=== PATIENT | female | born 1950 | race Caucasian/White ===

== ENCOUNTER 2019-11-27 15:29 | Outpatient (CLI) | payer MEDICARE, OTHER, SELFPAY ==
--- NOTE | 2019-11-27 | XR_ITS ---
WS: [id number] LUMBAR SPINE TECHNIQUE: 5 views of the lumbar spine CLINICAL INFORMATION: SCIATICA COMPARISON: None. FINDINGS: Osteoporosis. Advanced lumbar scoliosis convex left. 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 Reversal of the normal lumbar lordosis. No instability on flexion-extension. Chronic appearing anterior wedging in the lower thoracic spine. Advanced facet arthropathy lower lumb ar spine. Cholecystectomy clips. Previously described fracture involving the superior endplate at T12 involving the disc space seen on the [address] CT. Anterior wedging at T12 appears stable. No instability at this level. Persistent disc d esiccation at T11-T12 with vacuum disc phenomenon. XR/XR lumbar spine min 4V [id number] IMPRESSION: 1. Lumbar scoliosis convex left with ankylosis lower thoracic and lumbar spine . 2. Advanced osteoporosis. 3. Previously described fracture T12 superior endplate with extension through the disc space appears stable. 4. Vacuum disc phenomenon T11-12. No instability.
== END 2019-11-27 15:30 | disposition home or self-care (01) ==
LOC: RADOUTREAD 15:33
PROVIDERS: Family Provider Family Medicine; PCP Family Medicine; Visit Provider Family Medicine
DX: Z76.89 Persons encountering health services in other specified circumstances (principal)

== ENCOUNTER 2019-12-10 14:36 | Outpatient (CLI) | payer MEDICARE, OTHER, SELFPAY ==
--- NOTE | 2019-12-10 14:47 | MRR_ITS ---
PROCEDURE INFORMATION: Exam: MR Lumbar Spine Without Contrast. Exam date and time: 12/10/2019 3:00 PM Age: 69 years old Clinical indication: Condition or disease; Other: Sciatica TECHNIQUE: Imaging protocol: Multiplanar magnetic resonance images of the lumbar spine without intravenous contrast. COMPARISON: CR XR lumbar spine min 4V [id number] 11/27/2019 10:20 AM FINDINGS: Vertebrae: Partial sacralization of the right portion of L5 with unilateral right-sided articulation which can be a source of chronic low back pain. Levoscoliosis. Spinal cord: The conus medullaris terminates at the level of L1. T12-L1: Moderate degenerative disc disease and spondylosis. L1-L2: Moderate to severe degenerative disc disease and spondylosis. L2-L3: Moderate to severe degenerative disc disease and spondylosis. Moderate to severe right L2-L3 facet arthropathy. Moderate to severe L2-L3 lateral recess stenosis which could compromise the traversing right L3 nerve root. L3-L4: Severe degenerative disc disease and spondylosis. [id number] right and moderate to severe left facet arthropathy. Left posterolateral osteophyte formation with left lateral recess stenosis and mild left foraminal stenosis. L4-L5: Borderline right foraminal stenosis. Moderate degenerative disc disease and spondylosis. L5-S1: Hypoplastic L5-S1 disc with some desiccation. Soft tissues: Unremarkable. MR/MR lumbar spine wo con* [id number] IMPRESSION: 1. Partial sacralization of the right portion of L5 with unilateral right-sided articulation which can be a source of chronic low back pain. 2. Levoscoliosis. 3. Multilevel degenerative changes including degenerative disc disease and/or spondylosis and/or facet degenerative changes with associated multilevel central spinal stenosis and/or lateral recess stenosis and/or foraminal stenosis as discussed above.
== END 2019-12-10 14:37 | disposition home or self-care (01) ==
LOC: RADSHAW 14:41
PROVIDERS: Family Provider Family Medicine; PCP Family Medicine; Visit Provider Family Medicine
DX: M54.30 Sciatica, unspecified side (principal); Q76.49 Other congenital malformations of spine, not associated with scoliosis; M41.86 Other forms of scoliosis, lumbar region
CPT/HCPCS: 72148

== ENCOUNTER 2020-01-21 13:46 | Outpatient (CLI) | payer MEDICARE, OTHER, SELFPAY ==
[2020-01-21 13:45] VITALS: BP 124/62; PULSE 62; RESP 16; TEMP 36.8; O2SAT 98
--- NOTE | 2020-01-21 13:56 | PC.NURSE ---
Denies fever, cough, exposure to anyone ill or known COVID 19.
[2020-01-21] MEDS: denosumab 60 mg SDV SUBCUT (14:07)
[2020-01-21 14:13] VITALS: BP 120/70; TEMP 36.7
== END 2020-01-21 13:47 | disposition home or self-care (01) ==
LOC: RHEOACUTE 13:46
PROVIDERS: Family Provider Family Medicine; PCP Family Medicine; Visit Provider Internal Medicine Rheumatology
DX: M81.0 Age-related osteoporosis without current pathological fracture (principal)
CPT/HCPCS: 96372; J0897

== ENCOUNTER 2020-02-11 07:56 | Outpatient (CLI) | payer MEDICARE, OTHER, SELFPAY ==
[2020-02-11 08:15] VITALS: BMI 39.2
--- NOTE | 2020-02-11 08:24 | ECG_ITS ---
NAME OF STUDY: LEXISCAN SESTAMIBI STRESS TEST INDICATION: Chest Pain PROCEDURE: At the baseline, the blood pressure was 185/97 mmHg with a heart rate of 64 bpm. The electrocardiogram showed atrial fibrillation, normal axis with no significant ST-T wave changes. The Lexiscan was infused over a period of 20 seconds. A total of 0.4 milligrams of Lexiscan was infused. The stress phase was continued for a total of 5 minutes. Heart rate at the end of the stress phase was 68 bpm, oxygen saturation with a blood pressure 160/84 mmHg. The EKG at the peak infusion revealed no significant ST-T wave changes. Sestamibi was injected 20 seconds after the Lexiscan infusion. Blood pressure at the end of the recovery phase was 175/94 mmHg with a heart rate of 72 beats per minute. CONCLUSION: 1. No significant EKG changes with the LexiScan infusion. 2. No LexiScan induced chest pain or cardiac arrhythmia. 3. Normal blood pressure and heart rate response. 4. Sestamibi/sestamibi perfusion scan pending; see separate report. Electronically Signed On 02-13-2020 13:31:52 CDT by Gena West M.D. [email or web address]
--- NOTE | 2020-02-11 08:24 | NMCV_ITS ---
NM devon perf SPECT r/s* [id number] Jennifer Sahu Age: 69 Gender: F : 1950 Exam Date: 02/11/2020 09:28 Ordering Phys: Gena West MD ([email or web address]) Technologist: JOHN Teresa Exam Location: [facility] Indications: CHEST PAIN STRESS TEST Please [facility] IMAGE PROTOCOL Rest/Stress 1 Lexiscan Day Radiopharmaceutical Dose (mCi) Administration Site Administered by Rest: Tc-99m 10.9 IV JOHN Yeh Sestamibi Stress:Tc-99m 32.5 IV JOHN Teresa Sestamideonna Rest: 11-Feb-2020 60 Discovery 630 Stress: 11-Feb-2020 30 Discovery 630 0.4mg Lexiscan. Supine position only as patient was unable to lay prone. SPECT RESULTS Technical Quality: Excellent Raw Data Analysis: Normal Image Corrections: No attenuation or motion correction applied Summed Stress Score: 12 Summed Rest Score: 3 Summed Difference Score: 9 PERFUSION FINDINGS Medium sized perfusion abnormality of moderate severity of mid to apical inferior and mid to apical inferolateral bird on stress images. FUNCTIONAL RESULTS (calculated via Gated SPECT) Stress Image LV EF (%): 73 Stress EDV (mL):81 TID: 1.11 Stress ESV (mL):22 FUNCTIONAL FINDINGS: The left ventricle is normal in size. Transient Ischemia Dilatation of 1.1. There is normal left ventricular systolic function. The left ventricular ejection fraction is normal with a value of 73%. There is normal left ventricular wall thickening. Normal end diastolic and end systolic volumes. IMPRESSIONS 1. Medium sized reversible perfusion abnormality of moderate severity of mid to apical inferior and mid to apical inferolateral bird. This is suggestive of moderate area of ischemia in right coronary artery and circumflex artery territory. 2. Overall left ventricular systolic function is normal without regional wall motion abnormalities. 3. The left ventricular ejection fraction is normal with a value of 73%. 4. No prior similar studies to compare. Gena West MD (Electronically Signed) Final Date: 11 February 2020 15:24 S
--- NOTE | 2020-02-11 10:08 | SUR.PREOP ---
Patient reports no pain or discomfort prior to the start of the procedure.
[2020-02-11] MEDS: regadenoson 0.4 Mg/5 ml Syringe IVP (10:10)
[2020-02-11 10:19] VITALS: BP 184/101; PULSE 69
== END 2020-02-11 07:57 | disposition home or self-care (01) ==
LOC: RAD 08:00
PROVIDERS: Family Provider Family Medicine; PCP Family Medicine; Visit Provider Internal Medicine Cardiovascular Disease
DX: R07.9 Chest pain, unspecified (principal)
CPT/HCPCS: 78452; 93017; A9500; J2785

== ENCOUNTER 2020-03-15 20:31 | Inpatient (IN) | payer MEDICARE, OTHER, SELFPAY ==
[2020-03-15 20:33] VITALS: BP 183/99; PULSE 55; RESP 18; TEMP 36.3; O2SAT 99; BMI 39.2
--- NOTE | 2020-03-15 20:45 | XR_ITS ---
WS: [id number] PORTABLE CHEST HISTORY: vomiting COMPARISON: 05/06/2019 Radiograph is lordotic and the patient is rotated. Hyperinflated lungs. Linear scar in the central RIGHT lung. Slight elevation of the RIGHT hemidiaphra gm. No pleural effusion or pneumothorax. Cardiac size: Normal. Mediastinum/Aorta: Mild atherosclerosis aorta. Mediastinum is enlarged and distorted by the aortic ar ch. No osseous abnormality seen. XR/XR chest 1V portable [id number] IMPRESSION: Enlarged mediastinum secondary to rotation of the patient and positioning. No p neumonia.
[2020-03-15 20:46] VITALS: BP 139/75; PULSE 59; RESP 20; O2SAT 95
--- NOTE | 2020-03-15 20:46 | CTR_ITS ---
PROCEDURE INFORMATION: Exam: CT Head Without Contrast Exam date and time: 03/15/2020 9:20 PM Age: 69 years old Clinical indication: Patient HX: Nausea w cp; Additional info: Symptoms of acute stroke TECHNIQUE: Imaging protocol: Computed tomography of the head without contrast. Axial, coronal and sagittal reformatted images were created and reviewed. Radiation optimization: All CT scans at this facility use at least one of these dose optimization techniques: automated exposure control; mA and/or kV adjustment per patient size (includes targeted exams where dose is matched to clinical indication); or iterative reconstruction. COMPARISON: CT head wo con* [id number] 02/05/2018 4:27 PM RADIATION DOSE METRICS: Total DLP: 801.24 mGy-cm FINDINGS: Limitations: Somewhat limited examination due to streak/motion artifact. Brain: Patchy areas of hypoattenuation in the periventricular and subcortical white matter, consistent with chronic small vessel ischemic disease. No CT evidence of acute intracranial hemorrhage or acute territorial infarction. No significant mass effect or midline shift. Basal cisterns patent. Ventricles: Prominence of the cortical sulci, cisterns and ventricular system, consistent with cerebral and cerebellar volume loss. Bones/joints: No acute osseous abnormality. Sinuses: See Vasculature finding. Mastoid air cells: Minimal opacification and sclerosis of the mastoid air cells. Soft tissues: Grossly unremarkable. Vasculature: Calcific atherosclerotic disease in the cavernous internal carotid arteries. Minimal ethmoid mucosal thickening. Near complete opacification of the left maxillary sinus. CT/CT head wo con* [id number] IMPRESSION: 1. Somewhat limited examination without CT evidence of acute intracranial pathology. 2. Additional findings, as above. Radiation Dose CTDIVOL = (mGy): DLP = 801.24 (mGy-cm)
--- NOTE | 2020-03-15 20:46 | ECG_ITS ---
Measurements Intervals [place] Rate: 59 P: 47 IA: 194 QRS: 22 QRSD: 98 T: 30 QT: 440 QTc: 438 SINUS BRADYCARDIA No previous ECG available for comparison Electronically Signed On 03-16-2020 10:31:20 CDT by Ignacio Llanos MD [email or web address]
[2020-03-15 20:55] LABS: Basophils # 0.1 10^3/uL (0.0-0.1); Eosinophils # 1.2 10^3/uL (0.0-0.8); Eosinophils % 11.9 %; Hematocrit 35.6 % (37.0-47.0); Lymphocytes # 4.2 10^3/uL (0.8-4.8); Lymphocytes % 40.5 %; Mean Corpuscular HGB Conc 30.9 g/dL (30.0-36.0); Mean Corpuscular Hemoglobin 28.5 pg (28.0-34.0); Mean Corpuscular Volume 92.2 fL (81-99); Monocytes # 1.3 10^3/uL (0.2-0.9); Monocytes % 12.2 %; Neutrophils # 3.5 10^3/uL (1.8-7.7); Neutrophils % 34.2 %; Nucleated Red Blood Cells % 0 %; Platelet Count 277 10^3/cmm (130-400); Red Blood Count 3.86 10^6/uL (4.1-5.3); Red Cell Distribution Width 16.7 % (12.1-15.1); White Blood Count 10.3 10^3/uL (4.0-10.0)
[2020-03-15 21:03] LABS: INR 0.98 (0.8-1.2)
[2020-03-15 21:04] LABS: Partial Thromboplastin Time 26.8 SECONDS (23.9-36.7)
--- NOTE | 2020-03-15 21:05 | ED_ITS ---
HPI - Nausea/Vomiting/Diarrhea General: Chief complaint: Nausea/Vomiting/Diarrhea Stated complaint: Nausea with chest pain Time Seen by Provider: 03/15/20 20:39 History of Present Illness: HPI Narrative: Patient is a 69 year old female presenting with dizziness and double vision. She reports that this started while she was sitting and trying to read. She estimates it started approximately an hour prior to my evaluation. She also described feeling numb and tingly all over her body. She did not have any focal weakness. She does have a headache that started after the other symptoms. She has never had anything like this before. No history of stroke. She became dizzy and threw up several times. She admits to having pressure in her chest and feeling like her heart was beating funny. MD elicited complaint: vomiting Associated nausea: Yes Associated symtoms: Reports change in vision (Double vision), chest pain, dizziness, headache(s) and nausea; Denies fatigue or malaise Review of Systems General: Reports: 10 or more systems reviewed and unremarkable except in HPI and below Const: Denies: fever(s), chills, fatigue or malaise Eyes: Reports: change in vision (Double vision) ENMT: Denies: odynophagia Card: Reports: chest pain and pre-syncope; Denies: swelling of feet/ankles Resp: Denies: dyspnea, productive cough or non-productive cough GI: Reports: nausea and vomiting; Denies: abdominal pain : Denies: flank pain or difficulty voiding Musc: Denies: neck pain or back pain Skin/Breast: Denies: rash Neuro: Reports: headache(s), numbness in extremities, difficulty walking (She did not attempt to get up and walk. She normally ambulates with a walker due to balance problems) and dizziness; Denies: weakness in extremities Jarrell/Lymph: Denies: easy bruising or easy bleeding PFS ED PFSH: Medical History Atrial fibrillation Chronic migraine GERD (gastroesophageal reflux disease) HTN (hypertension) Postmenopausal osteoporosis Syncope and collapse Family History Other Diabetes Hypertension Social History Smoking and tobacco status: never smoked Alcohol intake: never Physical Exam Const: COMMON NORMALS: no acute distress, patient oriented x3, no limitations and alert GENERAL APPEARANCE: cooperative and comfortable HENMT: HEAD & SCALP: normal to inspection FACE & SINUS: normal facial exam Eye: COMMON NORMALS: Equal, round and reactive pupils present, EOMs intact bilaterally and normal visual reilly by confrontation GENERAL EYE: appearance normal, both eyes and all related structures PUPIL: Yes Equal, round and reactive pupils present OTHER: Patient continues to complain of double vision however I cannot detect any abnormal extraocular movements Neck/C-Spine: COMMON NORMALS: supple, no meningeal signs and no JVD Chest: COMMONS NORMALS: normal inspection of the chest Resp: COMMON NORMALS: normal respiratory effort, No use of accessory muscles and clear to auscultation bilaterally AUSCULTATION: clear to auscultation bilaterally Cardio: COMMON NORMALS: no JVD, regular rate, regular rhythm and No murmurs present (Cardio) RATE: regular rate RHYTHM: regular rhythm GI: COMMON NORMALS: Normal to inspection, nondistended, normoactive bowel sounds present, Soft to palpation and non-tender INSPECTION: Yes normal to inspection AUSCULTATION: Yes normoactive bowel sounds PALPATION: Yes Soft to palpation Back/Pelvis: COMMON NORMALS: thoracic and lumbar spine normal to inspection Extremity: COMMON NORMALS: normal to inspection Neuro: COMMON NORMALS: patient oriented x3, moves all extremities, no focal motor deficits and no sensory deficits noted SENSORIUM/ORIENTATION: Yes alert MENINGEAL SIGNS: Yes no meningeal signs CRANIAL NERVES: Yes CN normal except as noted GAIT: Yes Unable to assess gait SENSORY EXAM: Yes Normal double simultaneous stimulation for sensation MOTOR EXAM: 5/5 motor strength present throughout Psych: COMMON NORMALS: mental status grossly normal, cooperative and normal affect Skin: COMMON NORMALS: no rashes or lesions noted and turgor normal GENERAL SKIN EXAM: no rashes or lesions noted and turgor normal Course ED course: Patient's neurologic symptoms resolved. She no longer has double v ision. CT of her head was unremarkable for any acute findings. She does have chronic ischemia changes. EKG was unremarkable. On review of her prior records she is actually scheduled to have a left heart cath due to an abnormal stress test that was done recently. Although she did not initially complain of chest pain she does admit to chest pressure and it is conceivable that her symptoms could be related to cardiac issues. I had not initially ordered troponins but I have added serial troponins and EKGs now for her work-up. Vital Signs: Vital signs: Vital Signs Temperature 97.9 F 03/16/20 07:58 Pulse Rate 67 03/16/20 07:58 Respiratory Rate 16 03/16/20 07:58 Blood Pressure 133/67 03/16/20 07:58 Pulse Oximetry 93 03/16/20 07:58 MDM - Nausea/Vomiting/Diarrhea Lab Data: Labs: Lab Results 03/15/20 03/15/20 03/15/20 Range/Units 20:11 20:11 20:11 WBC 10.3 H (4.0-10.0) 10^3/ uL RBC 3.86 L (4.1-5.3) 10^6/u L Hgb 11.0 L (11.5-15.3) g/dL Hct 35.6 L (37.0-47.0) % MCV 92.2 (81-99) fL MCH 28.5 (28.0-34.0) pg MCHC 30.9 (30.0-36.0) g/dL RDW 16.7 H (12.1-15.1) % Plt Count 277 (130-400) 10^3/c mm MPV 12.0 H (7.4-10.4) fL Neut % (Auto) 34.2 % Lymph % (Auto) 40.5 % [place] % (Auto) 12.2 % Eos % (Auto) 11.9 % Baso % (Auto) 1.0 % Neut # (Auto) 3.5 (1.8-7.7) 10^3/u L Lymph # (Auto) 4.2 (0.8-4.8) 10^3/u L [place] # (Auto) 1.3 H (0.2-0.9) 10^3/u L Eos # (Auto) 1.2 H (0.0-0.8) 10^3/u L Baso # (Auto) 0.1 (0.0-0.1) 10^3/u L Nucleated RBC % (a uto) 0 % Nucleated RBCs # 0.0 /100WBC PT 13.30 (10.5-13.3) SECO NDS INR 0.98 (0.8-1.2) APTT 26.8 (23.9-36.7) SECO NDS Sodium 140 (136-145) mmol/L Potassium 4.9 (3.5-5.1) mmol/L Chloride 105 (98-107) mmol/L Carbon Dioxide 25 (22-29) mmol/L Anion Gap 14.9 (5-19) BUN 26 H (8-23) mg/dL Creatinine 1.1 H (0.5-0.9) mg/dL Glucose 111 (65-115) mg/dL POC Glucose (70-110) mg/dL Estimat Average Gl ucose Hemoglobin A1c (4.0-6.0) % Calculated Osmolal ity 288 (285-295) mOsm/k g Calcium 9.3 (8.5-10.5) mg/dL Total Bilirubin 0.2 (0.15-1.2) mg/dL AST 17 (0-32) U/L ALT 13 (0-33) U/L Alkaline Phosphata se 99 (35-105) IU/L Troponin T Baselin e (0-10) ng/mL NT-Pro-B Natriuret Pep (0-125) pg/mL Total Protein 6.8 (6.6-8.7) g/dL Albumin 3.5 (3.5-5.2) g/dL Globulin 3.3 (1.3-4.6) g/dL Triglycerides (0-150) mg/dL Cholesterol (0-200) mg/dL LDL Cholesterol, C alc (50-129) mg/dL HDL Cholesterol (60-100) mg/dL LDL/HDL Ratio (0.00-3.22) RATI O Cholesterol/HDL Ra umair (0.0-4.40) mg/dL TSH (0.27-4.20) uIU/ mL 03/15/20 03/15/20 03/15/20 Range/Units 20:11 20:11 21:02 WBC (4.0-10.0) 10^3/ uL RBC (4.1-5.3) 10^6/u L Hgb (11.5-15.3) g/dL Hct (37.0-47.0) % MCV (81-99) fL MCH (28.0-34.0) pg MCHC (30.0-36.0) g/dL RDW (12.1-15.1) % Plt Count (130-400) 10^3/c mm MPV (7.4-10.4) fL Neut % (Auto) % Lymph % (Auto) % [place] % (Auto) % Eos % (Auto) % Baso % (Auto) % Neut # (Auto) (1.8-7.7) 10^3/u L Lymph # (Auto) (0.8-4.8) 10^3/u L [place] # (Auto) (0.2-0.9) 10^3/u L Eos # (Auto) (0.0-0.8) 10^3/u L Baso # (Auto) (0.0-0.1) 10^3/u L Nucleated RBC % (a uto) % Nucleated RBCs # /100WBC PT (10.5-13.3) SECO NDS INR (0.8-1.2) APTT (23.9-36.7) SECO NDS Sodium (136-145) mmol/L Potassium (3.5-5.1) mmol/L Chloride (98-107) mmol/L Carbon Dioxide (22-29) mmol/L Anion Gap (5-19) BUN (8-23) mg/dL Creatinine (0.5-0.9) mg/dL Glucose (65-115) mg/dL POC Glucose 106 (70-110) mg/dL Estimat Average Gl ucose 108 Hemoglobin A1c 5.4 (4.0-6.0) % Calculated Osmolal ity (285-295) mOsm/k g Calcium (8.5-10.5) mg/dL Total Bilirubin (0.15-1.2) mg/dL AST (0-32) U/L ALT (0-33) U/L Alkaline Phosphata se (35-105) IU/L Troponin T Baselin e (0-10) ng/mL NT-Pro-B Natriuret Pep 943 H (0-125) pg/mL Total Protein (6.6-8.7) g/dL Albumin (3.5-5.2) g/dL Globulin (1.3-4.6) g/dL Triglycerides 124 (0-150) mg/dL Cholesterol 132 (0-200) mg/dL LDL Cholesterol, C alc 65 (50-129) mg/dL HDL Cholesterol 42 L (60-100) mg/dL LDL/HDL Ratio 1.55 (0.00-3.22) RATI O Cholesterol/HDL Ra umair 3.14 (0.0-4.40) mg/dL TSH 3.76 (0.27-4.20) uIU/ mL 03/15/20 Range/Units 22:40 WBC (4.0-10.0) 10^3/ uL RBC (4.1-5.3) 10^6/u L Hgb (11.5-15.3) g/dL Hct (37.0-47.0) % MCV (81-99) fL MCH (28.0-34.0) pg MCHC (30.0-36.0) g/dL RDW (12.1-15.1) % Plt Count (130-400) 10^3/c mm MPV (7.4-10.4) fL Neut % (Auto) % Lymph % (Auto) % [place] % (Auto) % Eos % (Auto) % Baso % (Auto) % Neut # (Auto) (1.8-7.7) 10^3/u L Lymph # (Auto) (0.8-4.8) 10^3/u L [place] # (Auto) (0.2-0.9) 10^3/u L Eos # (Auto) (0.0-0.8) 10^3/u L Baso # (Auto) (0.0-0.1) 10^3/u L Nucleated RBC % (a uto) % Nucleated RBCs # /100WBC PT (10.5-13.3) SECO NDS INR (0.8-1.2) APTT (23.9-36.7) SECO NDS Sodium (136-145) mmol/L Potassium (3.5-5.1) mmol/L Chloride (98-107) mmol/L Carbon Dioxide (22-29) mmol/L Anion Gap (5-19) BUN (8-23) mg/dL Creatinine (0.5-0.9) mg/dL Glucose (65-115) mg/dL POC Glucose (70-110) mg/dL Estimat Average Gl ucose Hemoglobin A1c (4.0-6.0) % Calculated Osmolal ity (285-295) mOsm/k g Calcium (8.5-10.5) mg/dL Total Bilirubin (0.15-1.2) mg/dL AST (0-32) U/L ALT (0-33) U/L Alkaline Phosphata se (35-105) IU/L Troponin T Baselin e 11 H (0-10) ng/mL NT-Pro-B Natriuret Pep (0-125) pg/mL Total Protein (6.6-8.7) g/dL Albumin (3.5-5.2) g/dL Globulin (1.3-4.6) g/dL Triglycerides (0-150) mg/dL Cholesterol (0-200) mg/dL LDL Cholesterol, C alc (50-129) mg/dL HDL Cholesterol (60-100) mg/dL LDL/HDL Ratio (0.00-3.22) RATI O Cholesterol/HDL Ra umair (0.0-4.40) mg/dL TSH (0.27-4.20) uIU/ mL Discharge Plan Discharge Patient Disposition: Placed in Observation Admit Provider: Indu Negro Clinical Impression: Near syncope, Blurred vision Condition: Stable Referrals: Raul Schaeffer MD [Primary Care Provider] - Discharge Date/Time: 03/16/20 00:05 Coding Level of Care Code ED 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
[2020-03-15 21:09] LABS: Alanine Aminotransferase 13 U/L (0-33); Albumin Level 3.5 g/dL (3.5-5.2); Alkaline Phosphatase 99 IU/L (35-105); Anion Gap 14.9 (5-19); Aspartate Amino Transferase 17 U/L (0-32); Blood Urea Nitrogen 26 mg/dL (8-23); Calcium 9.3 mg/dL (8.5-10.5); Carbon Dioxide 25 mmol/L (22-29); Chloride 105 mmol/L (98-107); Globulin 3.3 g/dL (1.3-4.6); Glucose 111 mg/dL (65-115); Osmolality Calculated 288 mOsm/kg (285-295); Potassium 4.9 mmol/L (3.5-5.1); Sodium 140 mmol/L (136-145); Total Bilirubin 0.2 mg/dL (0.15-1.2); Total Protein 6.8 g/dL (6.6-8.7)
[2020-03-15 21:13] LABS: Glucose Point of Care 106 mg/dL (70-110)
[2020-03-15 22:25] VITALS: BP 147/75; PULSE 60; RESP 16; O2SAT 98
--- NOTE | 2020-03-15 22:38 | ECG_ITS ---
Measurements Intervals [place] Rate: 70 P: 62 MN: 183 QRS: 48 QRSD: 94 T: 34 QT: 399 QTc: 431 SINUS RHYTHM Normal EKG No previous ECG available for comparison Electronically Signed On 03-16-2020 10:30:23 CDT by Ignacio Llanos MD [email or web address]
[2020-03-15 23:10] LABS: Troponin(5th) Baseline 11 ng/mL (0-10)
[2020-03-15 23:23] VITALS: BP 124/83; PULSE 68; RESP 18; O2SAT 94
[2020-03-15 23:24] LABS: Add Urine Microscopic? NO
[2020-03-15 23:50] LABS: Bilirubin Urine Neg (NEGATIVE); Blood Urine Neg (Negative); Glucose Urine UA Norm (Normal); Ketones Urine Negative (Negative); Leukocyte Esterase Urine Negative (Negative); Nitrate Urine Negative (Negative); Protein Urine Neg (Negative); Specific Gravity, Urine 1.015 (1.005-1.030); Sulfosalicylic Acid Urine Negative (Negative); Urine Appearance Clear (CLEAR); Urine Color Yellow (Yellow); Urobilinogen Urine Norm (Negative); pH Urine 9 (5-7)
[2020-03-16] VITALS (8 sets, daily range): BP systolic 131–167; BP diastolic 63–78; PULSE 58–74; RESP 16–22; TEMP 36.4–36.8; O2SAT 87–100
--- NOTE | 2020-03-16 00:48 | PM.HP ---
Providers/Chief Complaint Admitting Physician: Indu Negro MD Primary Care Provider: Raul Schaeffer MD Chief Complaint: Nausea with chest pain History of Present Illness Jennifer Sahu is a 69 year old female with PMHx of HTN, GERD, h/o liver abscess, Atrial fibrillation, h/o migraine and tremors recently seen by cardiology on 03/04 for syncopal episodes. Since January she has been c/o episodic shortness of breath with chest heaviness, swelling in legs, palpitations and dizziness. She had a recent stress test on 02/11/20 which showed moderate area of ischemia in right coronary artery and circumflex artery territory. no RWMA, LVEF 73%. She is planned to undergo outpatient coronary angiogram with Dr. Spaulding as outpatient. She presented to Er today with c/o dizziness, double vision, headache and feeling of parasthesias. She also c/o dizziness, palpitatiosn and chest discomfort during this time. CT head did not show any acute stroke. It did however show areas of hypoattenuation in the periventricular and subcortical white matter consistent with chronic small vessel ischemic changes. Also noted was calcific atherosclerotic disease in the cavernous internal carotid arteries. Neurological symptoms subsequently resolved. EKG did not show any acute ST-T wave changes. Baseline troponin is at 11. Liver and kidney function are at baseline. Review of Systems General: Reports: 10 or more systems reviewed and unremarkable except in HPI and below Const: Denies: fever(s), chills or body aches Eyes: Denies: change in vision, blurry vision or photophobia ENMT: Denies: throat pain, enlarged tonsils, odynophagia, hoarseness or nasal congestion Card: Denies: chest pain, palpitations, irregular heart rhythm, edema, swelling of feet/ankles, lightheadedness, pre-syncope, dyspnea on exertion or orthopnea Resp: Denies: dyspnea, productive cough, non-productive cough, wheezing, stridor, pain on inspiration, change in phlegm color, hemoptysis or chest congestion GI: Denies: abdominal pain, nausea, vomiting, hematemesis, coffee ground emesis, dysphagia, heartburn, diarrhea, constipation, GI cramping, change in stool character, hematochezia or melena : Denies: flank pain, difficulty voiding, dysuria, urinary frequency, urinary urgency, urinary hesitancy or hematuria Musc: Denies: neck pain, back pain, extremity pain, joint swelling, joint warmth or deformity Neuro: Denies: headache(s), numbness in extremities, weakness in extremities, sensory changes, difficulty walking, frequent falls, dizziness, vertigo, behavioral changes, Slurred speech present or seizure-like activity Psych: Denies: anxiety, depression, suicidal ideation or homicidal ideation Endo: Denies: polyuria, polydipsia, tired all the time, cold intolerance or hot flashes Jarrell/Lymph: Denies: easy bruising or easy bleeding Medications/Allergies Home Medications Medication Instructions Recorded Confirmed Last Taken Type spironolactone 25 mg tablet 25 mg PO DAILY 12/25/19 03/16/20 03/15/20 08:00 History metoprolol succinate 25 mg 12.5 mg PO BID #30 tab 02/12/20 03/16/20 03/15/20 08:00 Rx tablet,extended release 24 hr clopidogrel 75 mg tablet 75 mg PO .COMPLEX #30 tab 03/04/20 03/16/20 Unknown Rx pantoprazole 40 mg PO DAILY 03/15/20 03/16/20 03/15/20 08:00 History tizanidine 2 mg PO BID PRN 03/16/20 03/16/20 03/15/20 08:00 History tramadol 100 mg PO BID PRN 03/16/20 03/16/20 03/15/20 01:00 History aspirin 81 mg PO DAILY #30 tab 03/18/20 Unknown Rx atorvastatin 40 mg PO BEDTIME #30 tab 03/18/20 Unknown Rx Allergies Allergy/AdvReac Type Severity Reaction Status Date / Time Penicillins Allergy ALGY-Rash Verified 02/11/20 08:24 PFSH Acute PFSH: Medical History Atrial fibrillation Chronic migraine GERD (gastroesophageal reflux disease) HTN (hypertension) Postmenopausal osteoporosis Syncope and collapse Family History Other Diabetes Hypertension Social History Smoking and tobacco status: never smoked Alcohol intake: never Vitals/I&O/Wt Last Vital Signs Temp 97.4 F L 03/15/20 20:33 Pulse 59 L 03/16/20 00:23 Resp 20 H 03/16/20 00:23 BP 137/68 03/16/20 00:23 Pulse Ox 97 03/16/20 00:23 Weight last 48 hrs Weight 87.997 kg Physical Exam Narrative: EXAM NARRATIVE: GEN: Awake, alert and oriented, no acute distress CVS: S1S2 N RS: CTA B/L Abd: Soft, nt/nd , bs+ 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 Admit to [facility] # Pre syncope/syncope symptoms already undergoing evaluation as an outpatient. # Symptoms yesterday with double vision and dizziness initially raised concern for CVA vs TIA. CT head with chronic microvascular changes. Patient has a history of migraines and possible that she could have been experiencing a migraine headache at the time. Carotid artery atherosclerosis was noted on CT head, will order carotid artery doppler additionally for presyncope w/up Close neuro checks Continuous telemetry monitoring # C/o chest discomfort+ during the episode, which is now resolved. Likely unstable angina. Troponins without significant delta. EKG without acute ST-T changes Patient was scheduled for coronary angiogram as outpatient given abnormal stress test Continue ASA/Plavix/metoprolol/sprinolactone Last echo 05/2019 There is mild global hypokinesis with ejection fraction near 50%. No obvious regional wall motion disturbances. 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
--- NOTE | 2020-03-16 01:14 | USCV_ITS ---
Jennifer Sahu Age: 69 Gender: F : 1950 Exam Date: 03/16/2020 06:44 Ordering Phys: Indu Negro MD Technologist: Duane Rooney Exam Location: [facility] [place] Indication: Syncope Risk Factors: Unknown Previous Vascular Surgery: Unknown Right Brachial BP: / Left Brachial BP: / Right Left Velocity (cm/s) Spectral Plaque Velocity (cm/s) Spectral Plaque Syst/Diast Broadening Syst/Diast Broadening 79.40/ 19.80 Prox CCA 49.70 / 14.80 70.60/ 22.10 Mid CCA 63.70 / 19.40 59.00/ 17.10 Distal CCA 80.00 / 17.10 Tony 84.60/ 23.90 Prox ICA 66.40 / 18.40 Tony 114.40/34.20 Mid ICA 89.30 / 26.50 84.90/ 24.30 Distal ICA 101.40/ 33.10 72.60 ECA 45.40 1.62 ICA/CCA 1.59 Antegrade Vertebral Antegrade 82.70/ 18.70 cm/s 61.70/ 23.20 cm/s Tri Subclavian Tri 69.20 59.50 FINDINGS Comparison: none available. No significant elevation of systolic or diastolic velocities. Minimal bilateral, intimal thickening with plaque, no elevation of velocity. Bilateral anategrade vertebral arteries. CONCLUSIONS Bilateral ICA stenosis less than 50%. Mild bilateral atherosclerosis. Dr. Vera Torres DO (Electronically Signed) Final Date: 16 Mar 2020 09:53 S
[2020-03-16 01:15] LABS: Troponin 5 2HR 11.72 ng/mL (0-10); Troponin 5 2HR Delta 0.72 ABS# (0-10)
[2020-03-16] MEDS: TRAMadol 50 mg Tablet 100 MG PO ×2 (02:29→21:32)
[2020-03-16 02:39] LABS: Estmated Average Glucose 108; Hemoglobin A1C 5.4 % (4.0-6.0)
[2020-03-16 04:17] LABS: Chol HDL Ratio 3.14 mg/dL (0.0-4.40); Cholesterol 132 mg/dL (0-200); HDL Cholesterol 42 mg/dL (60-100); LDL Cholesterol Calculated 65 mg/dL (50-129); LDL HDL Ratio 1.55 RATIO (0.00-3.22); NT Pro B Type Natriuretic Pept 943 pg/mL (0-125); Thyroid Stimulating Hormone 3.76 uIU/mL (0.27-4.20); Triglycerides 124 mg/dL (0-150)
[2020-03-16 05:45] LABS: Troponin 5 6HR 9.86 ng/mL (0-10)
[2020-03-16 05:46] LABS: Troponin 5 6HR Delta -1.14 ng/L (0-12)
[2020-03-16 05:47] LABS: Alanine Aminotransferase 11 U/L (0-33); Albumin Level 3.2 g/dL (3.5-5.2); Alkaline Phosphatase 79 IU/L (35-105); Anion Gap 13.3 (5-19); Aspartate Amino Transferase 18 U/L (0-32); Blood Urea Nitrogen 19 mg/dL (8-23); Calcium 8.5 mg/dL (8.5-10.5); Carbon Dioxide 24 mmol/L (22-29); Chloride 105 mmol/L (98-107); Globulin 2.8 g/dL (1.3-4.6); Glucose 83 mg/dL (65-115); Magnesium 2.9 mg/dL (1.7-2.3); Osmolality Calculated 280 mOsm/kg (285-295); Potassium 5.3 mmol/L (3.5-5.1); Sodium 137 mmol/L (136-145); Total Bilirubin 0.4 mg/dL (0.15-1.2)
[2020-03-16] MEDS: metoprolol succinate ER (24 HR) 25 mg Tablet 12.5 MG PO ×2 (09:05→17:01)
[2020-03-16] MEDS: spironolactone 25 mg Tablet PO (09:06)
[2020-03-16] MEDS: pantoprazole DR 40 mg Tablet PO (09:06)
--- NOTE | 2020-03-16 09:06 | PC.CHAP ---
Pastoral Care Encounter/Spiritual Assessment Type of Contact [] Declined teaching pastor visit [] Patient/Family/Request visit [] Outpatient visit [] Follow-up visit [] Physician referral [] Code/Alert [x] Routine visit [] Staff referral [] Actively dying [] Patient sleeping [] Family support [] [] Out of room [] Palliative care [] [] Receiving care in room [] Pre-surgical visit [] Trauma [] Long length of stay [] ICU visit [] Other: Relational/Emotional Strength [] Patient feels connected with others/family/visitors/staff [] Distress [] Loneliness/isolation [] Abandonment Spirituality of Patient [] Person of [place] [] Attends Mosque of their [place] [x] Believes in Prayer [] Reads Bible or Bahai materials [] There are Spiritual issues to be addressed Information Security Manager Interventions [x] Prayer [] Active listening [] Non-anxious presence [] Spiritual/emotional support [] Crisis/trauma care [] Spiritual counseling [] Bereavement support [] Provided bereavement packet [] Provided Bible/devotional materials [] Provided toy/stuffed animal, coloring book to patient or family member [] Provided Communion [] Anointing/[place] [] Salvation [x] Completed spiritual assessment [] Other: Impact on Illness or Injury [] Angry [] Fearful [] Anxious [] Often cries [] Exhaustion [] Unable to work [] Unable to attend buddhist [] Unable to walk/stand [] Unable to read [] Unable to drive [] Unable to eat/drink [] Unable to sleep [] Unable to be with family [] Patient intubated [] Other: Summary Patient dealing with pain. Time spent with patient 10 min
[2020-03-16] MEDS: acetaminophen 325 mg Tablet 650 MG PO (09:08)
--- NOTE | 2020-03-16 11:02 | P.CONIM_ITS ---
Providers/Reason For Consult Consulting Physican/Specialty*: Viet, Cardiology Reason for Consult*: Chest pain, abnormal stress test, unstable angina. Attending Physician: Rylan Echevarria MD Primary Care Provider: Raul Schaeffer MD History of Present Illness History of Present Illness Jennifer Sahu is a 69 year old female with PMHx of HTN, GERD, h/o liver abscess, Atrial fibrillation, h/o migraine and tremors recently seen by cardiology on 03/04 for syncopal episodes. Since January she has been c/o episodic shortness of breath with chest heaviness, swelling in legs, palpitations and dizziness. She had a recent stress test on 02/11/20 which showed moderate area of ischemia in right coronary artery and circumflex artery territory. no RWMA, LVEF 73%. She is planned to undergo outpatient coronary angiogram with Dr. Spaulding as outpatient. She presented to Er today with c/o dizziness, double vision, headache and feeling of parasthesias. She also c/o dizziness, palpitations and chest discomfort during this time. CT head did not show any acute stroke. It did however show areas of hypoattenuation in the periventricular and subcortical white matter consistent with chronic small vessel ischemic changes. Also noted was calcific atherosclerotic disease in the cavernous internal carotid arteries. Neurological symptoms subsequently resolved. EKG did not show any acute ST-T wave changes. Baseline troponin is at 11. Liver and kidney function are at baseline. Review of Systems General: Reports: 10 or more systems reviewed and unremarkable except in HPI and below Card: Reports: chest pain, palpitations and pre-syncope Resp: Reports: dyspnea GI: Reports: nausea Neuro: Reports: headache(s) and dizziness Psych: Reports: anxiety Meds/Allergies Home Medications and Allergies Home Medications Medication Instructions Recorded Confirmed Last Taken Type spironolactone 25 mg tablet 25 mg PO DAILY 12/25/19 03/16/20 03/15/20 08:00 History metoprolol succinate 25 mg 12.5 mg PO BID #30 tab 02/12/20 03/16/20 03/15/20 08:00 Rx tablet,extended release 24 hr clopidogrel 75 mg tablet 75 mg PO .COMPLEX #30 tab 03/04/20 03/16/20 Unknown Rx pantoprazole 40 mg PO DAILY 03/15/20 03/16/20 03/15/20 08:00 History tizanidine 2 mg PO BID PRN 03/16/20 03/16/20 03/15/20 08:00 History tramadol 100 mg PO BID PRN 03/16/20 03/16/20 03/15/20 01:00 History Allergies Allergy/AdvReac Type Severity Reaction Status Date / Time Penicillins Allergy ALGY-Rash Verified 02/11/20 08:24 Current Medications Current Medications Generic Name Dose Route Start Last Admin Trade Name Oswaldo PRN Reason Stop Dose Admin Acetaminophen 650 mg 03/16/20 01:09 03/16/20 09:08 Tylenol PO 650 mg Q6H PRN Administration Mild/Mod Pain Or Temp >/= 101 Metoprolol Succinate 12.5 mg 03/16/20 09:00 03/16/20 09:05 Toprol Xl PO 12.5 mg BID TAWANNA Administration Pantoprazole Sodium 40 mg 03/16/20 09:00 03/16/20 09:06 Protonix PO 40 mg DAILY TAWANNA Administration Spironolactone 25 mg 03/16/20 09:00 03/16/20 09:06 Aldactone PO 25 mg DAILY TAWANNA Administration Tramadol HCl 100 mg 03/16/20 01:11 03/16/20 02:29 Ultram PO 100 mg BID PRN Administration Pain PFSH Acute PFSH: Medical History Atrial fibrillation Chronic migraine GERD (gastroesophageal reflux disease) HTN (hypertension) Postmenopausal osteoporosis Syncope and collapse Family History Other Diabetes Hypertension Social History Smoking and tobacco status: never smoked Alcohol intake: never Vitals/I&O/Wt Last Vital Signs Temp 97.9 F 03/16/20 07:58 Pulse 67 03/16/20 07:58 Resp 16 03/16/20 07:58 BP 133/67 03/16/20 07:58 Pulse Ox 93 03/16/20 07:58 03/15/20 03/16/20 03/16/20 22:59 06:59 14:59 Intake Total 200 / 200 Balance 200 / 200 Weight last 48 hrs Weight 194 lb Physical Exam Const: COMMON NORMALS: no acute distress, patient oriented x3 and healthy appearing HENMT: COMMON NORMALS: normocephalic HEAD & SCALP: normocephalic Neck/C-Spine: COMMON NORMALS: no JVD Chest: COMMONS NORMALS: normal inspection of the chest and normal palpation of entire chest wall Resp: COMMON NORMALS: normal respiratory effort, clear to auscultation bilaterally and percussion normal AUSCULTATION: clear to auscultation bilaterally PERCUSSION: percussion normal Cardio: COMMON NORMALS: no JVD, regular rate, regular rhythm, S1 normal heart sound present, S2 normal heart sound present and No murmurs present (Cardio) RATE: regular rate RHYTHM: regular rhythm HEART SOUNDS: S1 normal heart sound present and S2 normal heart sound present GI: COMMON NORMALS: Normal to inspection, nondistended, normoactive bowel sounds present, Soft to palpation, non-tender and No hepatosplenomegaly present PALPATION: Yes Soft to palpation and Yes No hepatosplenomegaly present Extremity: COMMON NORMALS: normal to inspection, full ROM, capillary refill normal, no clubbing, cyanosis or edema, no calf tenderness and no pedal edema Neuro: COMMON NORMALS: patient oriented x3, CN's II-XII intact bilaterally and moves all extremities Psych: COMMON NORMALS: mental status grossly normal, Normal thought process present and cooperative THOUGHT PROCESS: Normal thought process present Skin: COMMON NORMALS: no rashes or lesions noted and no wounds GENERAL SKIN EXAM: no rashes or lesions noted Data Labs: Other Labs: Reviewed EKG x 2 Showing NSR without ischemic changes. A&P Assessment and plan (1) Chest pain: Given recurrence of chest pain and recent positive stress testing now presenting in unstable fashion would proceed with angiographic evaluation. On beta [place]. Add nitrates if symptomatic although she has headaches and near syncope and thus would not add at this time. Status: Acute Qualifiers: Chest pain type: unspecified Qualified Code(s): R07.9 - Chest pain, unspecified (2) Abnormal stress test: As above. Status: Acute (3) Near syncope: Currently no arrhythmia or significant AV block on EKG. avoid hypotension. Status: Acute (4) Syncope and collapse: As above. Status: Acute (5) Unstable angina: As above. Her presentation of resting chest discomfort in presence of recent abnormal stress testing is consistent with the diagnosis. Status: Acute Consult Attestations Medical Necessity Statement: Unstable angina. Time Spent in Patient Care: Greater than 35 minutes (>than 50% of time spent in counselling and/or direct pt care on unit) . 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
--- NOTE | 2020-03-16 11:32 | PM.PN ---
Subjective Subjective: Interval history: History and physical reviewed. Patient denies any chest discomfort currently. She does report chest discomfort yesterday upon presentation. She reports her dizziness and paresthesias have gone away. Medications: Reviewed: Yes Vitals/I&O/Wt Last Vital Signs Temp 97.9 F 03/16/20 11:26 Pulse 64 03/16/20 11:26 Resp 19 H 03/16/20 11:26 BP 160/69 03/16/20 11:26 Pulse Ox 100 03/16/20 11:26 03/15/20 03/16/20 03/16/20 22:59 06:59 14:59 Intake Total 200 / 200 Balance 200 / 200 Weight last 48 hrs Weight 87.997 kg Physical Exam Narrative: EXAM NARRATIVE: General exam is no apparent distress Cardiovascular regular rate and rhythm without murmur Lungs clear no wheezing or crackles Abdomen is soft positive bowel sounds Extremities no cyanosis clubbing or edema Data : 03/15/20 20:11 03/16/20 04:55 A&P Assessment and plan (1) Abnormal stress test: Cardiology consultation Likely will proceed with angiogram tomorrow Initiate statin Continue beta-[place] Last echocardiogram demonstrated EF of 50% Status: Acute (2) Chest pain: Angiogram, to be performed tomorrow Status: Acute Qualifiers: Chest pain type: unspecified Qualified Code(s): R07.9 - Chest pain, unspecified (3) Atrial fibrillation: Paroxysmal atrial fibrillation Initiate full anticoagulation Continue metoprolol Status: Acute (4) Blurred vision: Await carotid duplex Continue Plavix Full anticoagulation considering atrial fibrillation, paroxysmal CT head did not have any acute findings Status: Acute Additional A&P Information History of migraine headaches History of hypertension GERD. Continue Protonix Full code Lovenox for DVT prophylaxis Changed to regular admission as proceeding for angiogram tomorrow for evaluation of chest discomfort Attestations Medical Necessity Statement*: Needs continued hospitalization, for evaluation of chest discomfort and positive nuclear stress test. 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
[2020-03-16] MEDS: enoxaparin 100 mg/mL Syringe 90 MG SUBCUT (16:38)
--- NOTE | 2020-03-16 19:18 | PC.NURSE ---
Assumed care of patient. Assisted patient up to BSC with walker and standy to minimal assist. Patient tolerated well. Patient reports feeling better with improved dizziness and no n,v,d today. Instructed patient on possible LHC tomorrow and preparation involved. Patient verbalized understanding with reinforcement needed.
[2020-03-17] VITALS (33 sets, daily range): BP systolic 82–163; BP diastolic 64–96; PULSE 50–71; RESP 12–23; TEMP 36.4–36.7; O2SAT 85–100
[2020-03-17] MEDS: enoxaparin 100 mg/mL Syringe 90 MG SUBCUT (03:01)
[2020-03-17 04:36] LABS: Basophils # 0.1 10^3/uL (0.0-0.1); Basophils % 1.1 %; Eosinophils # 0.7 10^3/uL (0.0-0.8); Eosinophils % 7.7 %; Hematocrit 36.7 % (37.0-47.0); Lymphocytes # 3.5 10^3/uL (0.8-4.8); Lymphocytes % 39.1 %; Mean Corpuscular Hemoglobin 28.1 pg (28.0-34.0); Mean Corpuscular Volume 93.9 fL (81-99); Mean Platelet Volume 12.5 fL (7.4-10.4); Monocytes % 11.2 %; Neutrophils # 3.7 10^3/uL (1.8-7.7); Neutrophils % 40.6 %; Nucleated Red Blood Cells % 0 %; Platelet Count 267 10^3/cmm (130-400); Red Blood Count 3.91 10^6/uL (4.1-5.3)
[2020-03-17 04:57] LABS: Anion Gap 10.8 (5-19); Blood Urea Nitrogen 14 mg/dL (8-23); Calcium 9.2 mg/dL (8.5-10.5); Carbon Dioxide 26 mmol/L (22-29); Chloride 104 mmol/L (98-107); Glucose 74 mg/dL (65-115); Osmolality Calculated 277 mOsm/kg (285-295); Potassium 4.8 mmol/L (3.5-5.1); Sodium 136 mmol/L (136-145)
--- NOTE | 2020-03-17 08:00 | XACV_ITS ---
Exam Room: 105 Ht: 150 cm Wt: 88 kg BSA: 1.96 m2 Gender: Female : 1950 Exam Priority: Routine Procedure(s): Procedure Description: Diagnostic procedure Procedure Description: Left Heart Catheterization Diagnostic Cath Status: Urgent Diagnostic Findings Patient with fairly typical angina seen initially in the clinic. Stress testing showed distribution circumflex and right coronary artery ischemia. She has no known history of intervention. Coronary angiography reveals left coronary artery dominance. Left main is normal. The LAD contains moderate diffuse disease in the proximal portion. There is an area of heavy calcification proximally. The remainder the vessel is normal and very tortuous. The circumflex is the dominant vessel and ends distally as some very tortuous obtuse marginal branches and the posterior descending artery. In the mid to distal portion there is a 80% discrete stenosis. The right coronary artery is a small nondominant vessel and is occluded shortly after its origin. There is collateral flow to the distal right from the circumflex. PCI Status: Urgent PCI LVEF Assessed: Yes PCI Indication: New Onset Angina <= 2 months Interventional Findings The mid to distal circumflex lesion was primarily stented with a 4.0 by 12 mm stent. Decision for PCI with Surgical Consult: No PCI for Multi-vessel Disease: No Conclusions Left dominant system. 80% circumflex lesion stented primarily. Occluded nondominant distal right with collateral flow. Normal LV function. Interventional RX Recommendation: PCI w/o planned CABG Diagnostic RX Recommendation: PCI w/o planned CABG Anticoagulation: Heparin Ventriculography Ejection Fraction: 65.0 % Pressures Phase:Rest AO : 147 mmHg / 82 mmHg ( 106 mmHg ) @ 11:54:00 AM 166 mmHg / 81 mmHg ( 115 mmHg ) @ 11:55:00 AM 206 mmHg / 97 mmHg ( 129 mmHg ) @ 11:58:00 AM 159 mmHg / 70 mmHg ( 105 mmHg ) @ 12:01:00 PM 156 mmHg / 71 mmHg ( 105 mmHg ) @ 12:01:00 PM LV : 155 mmHg / 7 mmHg / @ 12:00:00 PM 166 mmHg / -15 mmHg / @ 12:01:00 PM 161 mmHg / -16 mmHg / @ 12:01:00 PM Valves Phase:DefaultPhase AV : 0.0 mmHg @ 5:17:02 PM AV Mean Gradient: 0.0 mmHg @ 5:17:02 PM 0.0 mmHg @ 5:17:02 PM Clinical Evaluation EBL: 5mL-10mL Procedural Details Procedure Consent Obtained. Current Diagnosis : Chest Pain. Pre-Procedure Time Out. Identified patient by full name and date of as verbalized by the patient/guarantor. Does the consent match the physician's order: Yes. Accurate & Complete Informed Consent: Yes. Inpatient/Outpatient History & Physical on Chart: Yes. If H&P is completed, is and addenduem needed: N/A; If yes, is the addendum complete: N/A. Visualize and Verify Site with Patient/Guarantor: N/A. Relevant Radiology Images available: N/A. The risks, benefits, and alternatives of sedation and/or procedure were discussed by physician. The patient agrees to continue. patient allergies: penicillin. patients medications: beta [place], Plavix, Lovenox. Procedure started. [facility] Clinical Fraility Score: 5: Mildly Frail. 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 CAD. Chest Pain Symptom Assessment: Atypical Angina. Cardiovascular Instability: No,. Correct patient, site and procedure confirmed by cath team. Current diagnosis: Chest Pain. PERRLA. Strong, equal hand missile inspector preflight bilaterally. Lungs clear x 5 lobes. IV Site on Arrival: 18 gauge in the left anticubital. IV Fluids: 0.9% NaCl at KVO. 0 mL infused prior to cath lab radiological technologist. Pre Procedural Pulses: bilateral dorsalis pedis was 1+. Pre Procedural Pulses: bilateral posterior tibial was 1+. Pre Procedural Pulses: right radial was 2+. Oxygen started at 2liters/min via nasal canula. bilateral groins was prepped with chloroprep then draped in the usual sterile fashion. Baseline sample Acquired. HR: 78 BPM. Physician notified. Patient's family unavailable. Equipment: 6F - Radial. Physician arrived. Physician scrubbed in. Immediate Pre-Procedure Time Out. Correct Patient: Yes; Correct Procedure: Yes; Correct Site: Yes; Correct Patient Position: Yes; Correct Supplies: Yes; Dried Flammable Prep: Yes; Blood Products Available: N/A;. Lidocaine 1% infiltrated to the right radial. Arterial access obtained. Unable to advance wire to use radial access. MD attempting to gain access in the Femoral artery. TR band applied - no hematoma. Lidocaine 1% infiltrated to the right groin. Arterial access obtained. A 6 [place] JL4 catheter in over wire. Catheter inserted over the standard wire. Multiple views taken of left coronary artery. Catheter out. Catheter removed over the standard wire. A 6 [place] JR4 catheter in over wire. Catheter inserted over the standard wire. Multiple views taken of right coronary artery. Catheter out. Catheter removed over the standard wire. A 6 [place] Angled Pig catheter in over wire. Catheter inserted over the standard wire. LV gram performed in GALVEZ @ 10 mL/second for a total of 30 mL. EDP Sample taken: LV 155/7,11; HR: 67 BPM; SpO2: 98%. EDP Sample taken: LV 166/-16,12; HR: 78 BPM; SpO2: 97%. Pullback taken: LV 161/-17,12; AO 159/70(105); Mean: 0mmHg, Peak to Peak: 0mmHg, SEP: 6sec/min; HR: 67 BPM; SpO2: 99%. Catheter out. Catheter removed over the standard wire. PCI Indication: CAD (without ischemic symptoms). 6 [place] XB 3 guide catheter was inserted over the wire. [place] guidewire was advanced through the guide catheter to lesion in the mid Circ. Inflation Number : 1 Keagan Davies GAYATHRI 4.0X12 KAYLA -Lot Number# [id number] exp 09-20-2021 was prepped and advanced across the Mid CX. The stent was deployed at 13 MEENA for 0:45 seconds. Stent balloon out over wire. Wire out. Guide catheter out. Sheath(s) sutured into position with 2-0 silk and sterile 4x4's and Op-site applied over the site. No oozing or signs and symptoms of hematoma noted. Arterial sheath flushed and connected to tranducer and pressure bag with heparinized saline. Post Procedure: Pulses reassessed and unchanged. PERRLA. Strong, equal hand missile inspector preflight bilaterally. No VTE prophylaxis required. Medication's Wasted: Verapamil = 5 mg. Medication's Wasted: Heparin = 4000 Units. Total IV fluids: 75 mL. Fluoro: 4:06. Vital chart was stopped. Contrast type used: Omnipaque 300 mgI/mL, 500 mL bottle. [id number]. PCI Indication: CAD (without ischemic symptoms). Post-op diagnosis: unstable angina. Complications: none. Estimated blood loss: 5mL-10mL. Procedure completed. Patient transferred by bed to 1st floor. Site: Right Femoral artery Sheath Size: 6 Fr Hemostasis Success: Unsuccessful Procedure Medications Start: 4:33 PM Stop: 4:33 PM Medication: Versed Amount: 1 mg Route: I.V. Start: 4:34 PM Stop: 4:34 PM Medication: Fentanyl Amount: 50 mcg Route: I.V. Start: 4:39 PM Stop: 4:39 PM Medication: Versed Amount: 1 mg Route: I.V. Start: 4:51 PM Stop: 4:51 PM Medication: Versed Amount: 1 mg Route: I.V. Start: 4:51 PM Stop: 4:51 PM Medication: Fentanyl Amount: 25 mcg Route: I.V. Start: 5:02 PM Stop: 5:02 PM Medication: Versed Amount: 1 mg Route: I.V. Start: 5:05 PM Stop: 5:05 PM Medication: Heparin Amount: 5000 units Route: I.V. Start: 5:06 PM Stop: 5:06 PM Medication: Fentanyl Amount: 25 mcg Route: I.V. Start: 5:11 PM Stop: 5:11 PM Medication: Plavix Amount: 600 mg Route: P.O. I, the attending physician, have reviewed and verified all procedure medications. Yes, all medications given per verbal order History/Risk Factors Hypertension: Yes Dyslipidemia: Yes Peripheral Arterial Disease (PAD): No Myocardial Infarction (CO): No Obesity: Yes Renal Disease: No Tobacco Use: Former Prior Interventions PCI: No CABG: No Valve Surgery: No Report Signatures Finalized by:Dr. Simon Spaulding MD on 03/17/2020 5:32:30 PM
[2020-03-17] MEDS: spironolactone 25 mg Tablet PO (09:32)
[2020-03-17] MEDS: pantoprazole DR 40 mg Tablet PO (09:32)
[2020-03-17] MEDS: metoprolol succinate ER (24 HR) 25 mg Tablet 12.5 MG PO ×2 (09:32→17:56)
[2020-03-17] MEDS: TRAMadol 50 mg Tablet 100 MG PO ×2 (09:35→19:36)
--- NOTE | 2020-03-17 10:31 | PM.PN ---
Subjective Subjective: Interval history: Jennifer denies any chest discomfort last night. Medications: Reviewed: Yes Vitals/I&O/Wt Last Vital Signs Temp 98.1 F 03/17/20 07:46 Pulse 65 03/17/20 07:46 Resp 12 03/17/20 07:46 BP 163/76 03/17/20 07:46 Pulse Ox 96 03/17/20 07:46 03/16/20 03/17/20 03/17/20 22:59 06:59 14:59 Intake Total 220 / 340 Output Total 350 / 350 350 / 700 125 / 125 Balance -130 / -10 -350 / -360 -125 / -125 Weight last 48 hrs Weight 87.997 kg Physical Exam Narrative: EXAM NARRATIVE: General exam is no apparent distress Cardiovascular regular in rhythm without murmur Lungs clear Abdomen is soft with positive bowel sounds Extremities no cyanosis clubbing or edema Data : 03/17/20 03:33 03/17/20 03:33 A&P Assessment and plan (1) Abnormal stress test: Appreciate cardiology consultation Likely angiogram today Continue statin, increased dose Continue beta-brooklyn Last echocardiogram demonstrated EF of 50% Status: Acute (2) Chest pain: Angiogram, to be performed today Status: Acute Qualifiers: Chest pain type: unspecified Qualified Code(s): R07.9 - Chest pain, unspecified (3) Atrial fibrillation: Paroxysmal atrial fibrillation Continue full anticoagulation with Lovenox. Consider Eliquis after procedure Continue metoprolol Status: Acute (4) Blurred vision: Await carotid duplex Continue Plavix Full anticoagulation considering atrial fibrillation, paroxysmal CT head did not have any acute findings Status: Acute Additional A&P Information History of migraine headaches History of hypertension GERD. Continue Protonix Full code Lovenox for DVT prophylaxis Changed to regular admission as proceeding for angiogram tomorrow for evaluation of chest discomfort Attestations Medical Necessity Statement*: Needs continued hospitalization for definitive evaluation of abnormal nuclear stress testing. Coding Level of Care Code Acute Pediatric Lpn for Rogelio Sultana Diagnoses Abnormal stress test R94.39 Chest pain R07.9 Chest pain type: unspecified Atrial fibrillation I48.91 Blurred vision H53.8
--- NOTE | 2020-03-17 11:13 | PC.CHAP ---
Pastoral Care Encounter/Spiritual Assessment Type of Contact [] Declined clinical assoc visit [] Patient/Family/Request visit [] Outpatient visit [] Follow-up visit [] Physician referral [] Code/Alert [x] Routine visit [] Staff referral [] Actively dying [] Patient sleeping [] Family support [] [] Out of room [] Palliative care [] [x] Receiving care in room [] Pre-surgical visit [] Trauma [] Long length of stay [] ICU visit [] Other: Relational/Emotional Strength [x] Patient feels connected with others/family/visitors/staff [] Distress [] Loneliness/isolation [] Abandonment Spirituality of Patient [c] Person of [place] [] Attends Yarsani of their [place] [c] Believes in Prayer [] Reads Bible or Worship materials [] There are Spiritual issues to be addressed Swine Genetics Researcher Interventions [x] Prayer [x] Active listening [x] Non-anxious presence [x] Spiritual/emotional support [] Crisis/trauma care [x] Spiritual counseling [] Bereavement support [] Provided bereavement packet [] Provided Bible/devotional materials [] Provided toy/stuffed animal, coloring book to patient or family member [] Provided Communion [] Anointing/[place] [] Salvation [x] Completed spiritual assessment [] Other: Impact on Illness or Injury [] Angry [] Fearful [] Anxious [] Often cries [] Exhaustion [x] Unable to work [] Unable to attend presybeterian [] Unable to walk/stand [] Unable to read [x] Unable to drive [] Unable to eat/drink [] Unable to sleep [] Unable to be with family [] Patient intubated [] Other: Summary CONFUSION / HX DEMENTIA; Has family, she angigram later today, waiting answer, may get to go home tomorrow, feels good good attitude Time spent with patient 10 mins
--- NOTE | 2020-03-17 13:56 | PC.NURSE ---
DR GUAMAN ORDERED TO HOLD THIS EVENINGS DOSE OF LOVENOX PRIOR TO BATCH WEIGHER.
--- NOTE | 2020-03-17 16:33 | PC.NURSE ---
PATIENT TAKEN TO LUNCHROOM SUPERVISOR VIA WHEELCHAIR WITH EARNESTINE FRANCO.
[2020-03-17] MEDS: sodium chloride 0.9% 1,000 ML 100 ML IV (17:56)
--- NOTE | 2020-03-17 19:00 | PC.NURSE ---
Assumed care of patient at this time. Patient is s/p [facility] with right groin access and attempted right radial access. Sheath is in place to right groin with pressure bag attached. No s/s of bleeding or hematoma formation observed to right groin, dressing remains c,d,i. Patient has pushed TR band away from incision site leaving incision exposed to air. No bleeding or hematoma formation observed to right wrist. TR band repositioned and air removed with still no signs of bleeding to site. Instructed patient on site care and restrictions. Patient verbalized understanding but will however need close monitoring and reinforcement of instructions. Patient had large void. Linen changed and skin cleaned. Right groin remains WNL.
[2020-03-17] MEDS: fentaNYL 50 mcg/mL INJ 2mL IVP (19:36)
--- NOTE | 2020-03-17 20:16 | PC.NURSE ---
Initiated sheath removal from right groin at 1940 per protocol. Hemostasis achieved immediately. Maintained pressure for 20min. VS monitored every 5min and reamained wnl. No s/s of bleeding or hematoma formation observed. Covered site with 2x2 and bio-occlusive dressing. Reinforced instruction regarding site care and restrictions. Patient verbalized complete understanding. TR band removed at this time from right wrist. Dressing is in place. No s/s of bleeding or hematoma to right wrist observed.
--- NOTE | 2020-03-17 23:39 | PC.NURSE ---
Fluids stopped at this time per Dr request.
[2020-03-18 04:00] VITALS: BP 106/74; PULSE 54; RESP 16; TEMP 36.6
[2020-03-18 04:47] VITALS: PULSE 50; O2SAT 98
[2020-03-18 05:42] VITALS: O2SAT 98
--- NOTE | 2020-03-18 06:42 | P.PN_ITS ---
Subjective Medications: Reviewed: Yes Medication Review Details: Jennifer underwent angiography yesterday. Mid to distal circumflex lesion was found. She has a left dominant system. The vessel was stented. Her right is a small nondominant vessel and is occluded. She has normal LV function. No problems overnight. No bleeding. I was able to pass a wire into the radial artery but was not able to pass it beyond her elbow so the procedure was completed via the right common femoral artery. Vitals/I&O/Wt Last Vital Signs Temp 97.9 F 03/18/20 04:00 Pulse 50 L 03/18/20 04:47 Resp 16 03/18/20 04:00 BP 106/74 03/18/20 04:00 Pulse Ox 98 03/18/20 05:42 03/17/20 03/17/20 03/18/20 14:59 22:59 06:59 Intake Total 120 / 120 240 / 360 571.667 / 931.667 Output Total 725 / 725 400 / 1125 400 / 1525 Balance -605 / -605 -160 / -765 171.667 / -593.333 Physical Exam Narrative: EXAM NARRATIVE: GENERAL: In general she looks and feels well HEENT: Exam within normal limits. NECK: Supple without jugular vein distention. The carotid upstroke is normal without bruits. BACK: Exam normal. LUNGS: Clear. HEART: Regular rate and rhythm. ABDOMEN: Benign without organomegaly or tenderness. EXTREMITIES: No edema. The area of the right wrist is flat, dry and without hematoma or other vascular anomaly. The right groin is flat, dry without bleeding, hematoma or other vascular anomaly. NEUROLOGIC: Exam normal. SKIN: Unremarkable. Data : 03/17/20 03:33 03/17/20 03:33 A&P Assessment and plan (1) Unstable angina: Status: Acute (2) Abnormal stress test: Status: Acute (3) Chest pain: Status: Acute Qualifiers: Chest pain type: unspecified Qualified Code(s): R07.9 - Chest pain, unspecified (4) Atrial fibrillation: Status: Acute (5) HTN (hypertension): Status: Acute (6) CAD (coronary artery disease): Status: Acute (7) Status post coronary artery stent placement: Status: Acute Additional A&P Information She may go home today. No lifting over 5 pounds for 2 days. Home medications should continue as is with the addition of a statin. She should also be placed on aspirin 81 mg daily. Follow-up in 7 to 10 days with our nurse practitioner for right groin check, right radial artery check and chemistry panel. Attestations Medical Necessity Statement*: Not applicable Coding Level of Care Code Acute [facility] [facility] Gunsmith for g Fwd Diagnoses Unstable angina I20.0 Abnormal stress test R94.39 Chest pain R07.9 Chest pain type: unspecified Atrial fibrillation I48.91 HTN (hypertension) I10 CAD (coronary artery disease) I25.10 Status post coronary artery stent placement Z95.5
[2020-03-18 07:22] VITALS: BP 140/84; PULSE 66; RESP 14; TEMP 36.5; O2SAT 96
[2020-03-18] MEDS: spironolactone 25 mg Tablet PO (08:38)
[2020-03-18] MEDS: aspirin 81 mg EC Tablet PO (08:38)
[2020-03-18] MEDS: metoprolol succinate ER (24 HR) 25 mg Tablet 12.5 MG PO (08:38)
[2020-03-18] MEDS: pantoprazole DR 40 mg Tablet PO (08:38)
--- NOTE | 2020-03-18 09:28 | PM.DCS ---
Discharge Providers Date of Admission: 03/16/20 11:40 Date of Discharge: March 18, 2020 Attending Provider at Admission: Indu Negro MD Attending Provider at Discharge: Rylan Echevarria MD Primary Care Provider: Raul Schaeffer MD Diagnoses at Discharge Discharge Diagnosis (1) Unstable angina: Status: Acute (2) Abnormal stress test: Status: Acute (3) Chest pain: Status: Acute Qualifiers: Chest pain type: unspecified Qualified Code(s): R07.9 - Chest pain, unspecified (4) Atrial fibrillation: Status: Acute (5) HTN (hypertension): Status: Acute (6) CAD (coronary artery disease): Status: Acute (7) Status post coronary artery stent placement: Status: Acute Reason for Visit Reason for Visit: Reason For Visit: Nausea with chest pain Hospital Course Hospital Course: Jennifer presented with recurrent chest discomfort. She had had a previously abnormal nuclear stress test and it had been arranged to have an outpatient angiogram. Secondary to the recurrent pain, abnormal stress test she was admitted to the hospital and consultation with cardiology occurred. Troponin was not significantly elevated. She underwent angiogram on March 17 demonstrating a circumflex lesion which was stented using a drug-eluting stent. LAD had moderate diffuse disease, right coronary occluded. She tolerated the procedure without difficulty and was able to be discharged March 18. At that time she had had no chest discomfort, right radial artery and right groin site was without significant hematoma. She had excellent pulses. She was able to ambulate around the room. 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 MANAGER request for service Routin e Exams 03/17/20 08:00 Completed XR chest 1V [place] ble [id number] Stat Exams 03/15/20 20:45 Completed CV carotid duplex BI* [id number] Routine Ultrasound 03/16/20 01:14 Completed Vitals: Last Vital Signs Temp 97.7 F 03/18/20 07:22 Pulse 66 03/18/20 07:22 Resp 14 03/18/20 07:22 BP 140/84 03/18/20 07:22 Pulse Ox 96 03/18/20 07:22 Discharge Plan Discharge Patient Disposition: Home, Self-Care Condition: Stable Prescriptions: New aspirin 81 mg Tablet,Delayed Release (Dr/Ec) 81 mg PO DAILY Qty: 30 RF: 0 atorvastatin 40 mg Tablet 40 mg PO BEDTIME Qty: 30 RF: 0 Continued spironolactone 25 mg tablet 25 mg PO DAILY RF: 0 clopidogrel [Plavix] 75 mg tablet 75 mg PO .COMPLEX Qty: 30 RF: 0 metoprolol succinate 25 mg tablet extended release 24 hr 12.5 mg PO BID Qty: 30 RF: 3 pantoprazole 40 mg Tablet,Delayed Release (Dr/Ec) 40 mg PO DAILY RF: 0 tizanidine 2 mg Tablet 2 mg PO BID PRN (Reason: Muscle Spasm) RF: 0 tramadol 50 mg Tablet 100 mg PO BID PRN (Reason: Pain) RF: 0 Discharge Orders: Discharge Order (Routine); Ordered 03/18/20 Ordered By: Rylan Echevarria Referrals: Simon Spaulding MD [Physician] - 7-10 days (Follow-up with cardiology nurse practitioner 7 to 10 days for right groin check, right radial artery check, BMP) Raul cShaeffer MD [Primary Care Provider] - 7-10 days Discharge Diet: Cardiac Discharge Activity: Increase activity as tolerated Patient Instructions: Left Heart Catheterization (DC), How to Stop Smoking (DC), Cigarette Smoking and Your Health (GEN), Post Angiogram Home Care Instructions Activity Restrictions/Additional Instructions: Lifting restrictions per cardiology, no lifting over 5 pounds for 2 days Take all medicine as prescribed Discharge Attestations Time Spent in Discharge Care*: greater than 30 min Quality Metrics Clinical Quality Measures During this hospital stay, did patient experience: None Coding Level of Care Code Acute Baker Second for Riang Fwd Diagnoses Unstable angina I20.0 Abnormal stress test R94.39 Chest pain R07.9 Chest pain type: unspecified Atrial fibrillation I48.91 HTN (hypertension) I10 CAD (coronary artery disease) I25.10 Status post coronary artery stent placement Z95.5
[2020-03-18 09:39] VITALS: BP 140/84; PULSE 66; RESP 14; TEMP 36.5; O2SAT 96
== END 2020-03-18 10:43 | disposition home or self-care (01) | DRG 247 ==
LOC: ER 22:42 → CSU 03-16 07:03
PROVIDERS: Internal Medicine Cardiovascular Disease; Admitting Provider Student in an Organized Health Care Education/Training Program; Emergency Provider Emergency Medicine; Family Provider Family Medicine; PCP Family Medicine; Visit Provider Internal Medicine
PROC: 027034Z Dilation of Coronary Artery, One Artery with Drug-eluting Intraluminal Device, Percutaneous Approach (ICD-10-PCS; principal; 2020-03-17 10:00)
PROC: 027034Z Dilation of Coronary Artery, One Artery with Drug-eluting Intraluminal Device, Percutaneous Approach (ICD-10-PCS; 2020-03-17 10:00)
DX: I25.110 Atherosclerotic heart disease of native coronary artery with unstable angina pectoris (principal); I10 Essential (primary) hypertension; K21.9 Gastro-esophageal reflux disease without esophagitis; I48.0 Paroxysmal atrial fibrillation; G43.709 Chronic migraine without aura, not intractable, without status migrainosus; M81.0 Age-related osteoporosis without current pathological fracture; R55 Syncope and collapse; H53.8 Other visual disturbances; Z79.02 Long term (current) use of antithrombotics/antiplatelets
CPT/HCPCS: 12345; 36415; 36416; 70450; 71045; 80048; 80053; 80061; 81003; 82962; 83036; 83735; 83880; 84443; 84484; 85025; 85610; 85730; 93005; 93010; 93452; 93880; 96372; 96375; 99283; C1769; C1874; C1887; C1894; C9600; G0378; J1644; J1650; J2001; J2250; J3010; J3490; J7030; Q9967

== ENCOUNTER → 2020-03-25 10:48 | Outpatient (BNVA) | payer MEDICARE, OTHER, SELFPAY | PROVIDERS: Family Provider Family Medicine; PCP Family Medicine; Visit Provider Nurse Practitioner Family | DX: I25.118 Atherosclerotic heart disease of native coronary artery with other forms of angina pectoris (principal); Z09 Encounter for follow-up examination after completed treatment for conditions other than malignant neoplasm | CPT/HCPCS: 80048 ==

== ENCOUNTER 2020-08-24 12:46 | Outpatient (CLI) | payer MEDICARE, OTHER, SELFPAY ==
[2020-08-24 12:50] VITALS: BP 108/70; PULSE 57; RESP 16; TEMP 36.8; O2SAT 94
[2020-08-24] MEDS: denosumab 60 mg SDV SUBCUT (13:00)
[2020-08-24 13:15] VITALS: BP 107/63; PULSE 83; RESP 16; TEMP 36.9; O2SAT 94
== END 2020-08-24 12:47 | disposition home or self-care (01) ==
LOC: RHEOACUTE 12:49
PROVIDERS: Family Provider Family Medicine; PCP Family Medicine; Visit Provider Internal Medicine Rheumatology
DX: M81.0 Age-related osteoporosis without current pathological fracture (principal)
CPT/HCPCS: 96372; J0897

== ENCOUNTER 2020-09-07 11:23 | Outpatient (CLI) | payer MEDICARE, OTHER, SELFPAY ==
--- NOTE | 2020-09-07 | US_ITS ---
WS: [id number] Exam: US liver [id number] Date/Time of Exam: 09/07/2020 12:00 AM Reason For Exam: ELEVATED ALKALINE PHOSPHATASE LEVEL The liver is unremarkable in appearance. The liver measures about 17 cm in greatest dimension. No int rahepatic ductal dilatation noted. The common bile duct appears normal and measures 3.[address] diameter. Unremarkable appearing right kidney measures 9.35 x 4.1 x 5.2 cm. The gallbladder is mary kay gically absent. US/US liver [id number] IMPRESSION: 1. Unremarkable hepatic ultrasound. 2. Status post cholecystectomy.
== END 2020-09-07 11:24 | disposition home or self-care (01) ==
LOC: RADOUTREAD 13:03
PROVIDERS: PCP Family Medicine; Visit Provider Family Medicine
DX: R74.8 Abnormal levels of other serum enzymes (principal)
CPT/HCPCS: 76705

== ENCOUNTER 2021-01-29 02:00 | Emergency (ER) | payer MEDICARE, MEDICAID, SELFPAY ==
[2021-01-29 02:02] VITALS: BP 143/53; PULSE 89; RESP 16; TEMP 36.5; O2SAT 95; BMI 36.3
--- NOTE | 2021-01-29 02:06 | CTR_ITS ---
PROCEDURE INFORMATION: Exam: CT Cervical Spine Without Contrast Exam date and time: 01/29/2021 2:08 AM Age: 70 years old Clinical indication: Injury or trauma; Blunt trauma; Patient HX: Fall at home. Sustained blow to occiput. C/O neck pain. Currently on plavix for recent cardiac catheterization. Best positioning due to PT kyphosis. Head had to be scanned in large body sfov. TECHNIQUE: Imaging protocol: Computed tomography images of the cervical spine without contrast. Radiation optimization: All CT scans at this facility use at least one of these dose optimization techniques: automated exposure control; mA and/or kV adjustment per patient size (includes targeted exams where dose is matched to clinical indication); or iterative reconstruction. COMPARISON: No relevant prior studies available. RADIATION DOSE METRICS: Total DLP (mGy-cm): 948.91 FINDINGS: Vertebrae: No acute fracture. Normal alignment. The disc heights are reduced at multiple levels with osteophytes. Soft tissues: Unremarkable. Lungs: Lung apices are normal. CT/CT cervical spin wo con* [id number] IMPRESSION: No fracture or subluxation is seen. Multilevel degenerative changes are present. Radiation Dose CTDIVOL = (mGy): DLP = 948.91 (mGy-cm)
--- NOTE | 2021-01-29 02:06 | CTR_ITS ---
PROCEDURE INFORMATION: Exam: CT Head Without Contrast Exam date and time: 01/29/2021 2:08 AM Age: 70 years old Clinical indication: Injury or trauma; Blunt trauma (contusions or hematomas); Patient HX: Fall at home. Sustained blow to occiput. C/O neck pain. Currently on plavix for recent cardiac catheterization. Best positioning due to PT kyphosis. Head had to be scanned in large body sfov. TECHNIQUE: Imaging protocol: Computed tomography of the head without contrast. Radiation optimization: All CT scans at this facility use at least one of these dose optimization techniques: automated exposure control; mA and/or kV adjustment per patient size (includes targeted exams where dose is matched to clinical indication); or iterative reconstruction. COMPARISON: CT head wo con* [id number] 03/15/2020 9:13 PM RADIATION DOSE METRICS: Total DLP (mGy-cm): 989.46 FINDINGS: Brain: Normal. No hemorrhage. Unremarkable white matter. No mass effect. Cerebral ventricles: No ventriculomegaly. Bones/joints: Unremarkable. No acute fracture. Paranasal sinuses: Left chronic maxillary sinusitis is present. No fluid levels. Mastoid air cells: Visualized mastoid air cells are well aerated. Soft tissues: A small left parietal scalp swelling is noted. CT/CT head wo con* [id number] IMPRESSION: No acute intracranial abnormality. Radiation Dose CTDIVOL = (mGy): DLP = 989.46 (mGy-cm)
--- NOTE | 2021-01-29 02:10 | ED_ITS ---
HPI - Fall General: Chief Complaint: Fall Stated Complaint: Fall Time Seen by Provider: 01/29/21 02:06 Source: patient and EMS Mode of arrival: EMS Limitations: no limitations History of Present Illness: HPI Narrative: 70-year-old female states she was getting up to go to the bathroom night and slipped and fell. States she hit her posterior head on a table. States she is got some head pain along with neck pain. She denies any other injuries from her fall. She rates her headache a 2 out of 10. She denies any loss conscious. She is on Plavix. She is not on any other blood thinners Associated symptoms-after fall: Reports headache(s); Denies abdominal pain, chest pain or neck pain Review of Systems Const: Denies: fever(s), chills, body aches or change in appetite Eyes: Denies: blurry vision or eye discomfort ENMT: Denies: throat pain or dental pain Card: Denies: chest pain Resp: Denies: dyspnea GI: Denies: abdominal pain, nausea, vomiting or diarrhea : Denies: dysuria Musc: Denies: neck pain or back pain Skin/Breast: Denies: rash Neuro: Reports: headache(s) Psych: Denies: depression Jarrell/Lymph: Denies: easy bruising All/Imm: Denies: urticaria PFSH ED PFSH: Medical History Abnormal stress test Atrial fibrillation Chronic migraine GERD (gastroesophageal reflux disease) HTN (hypertension) Postmenopausal osteoporosis Syncope and collapse Family History Other Diabetes Hypertension Social History Smoking and tobacco status: never smoked Alcohol intake: never Physical Exam Const: COMMON NORMALS: no acute distress, patient oriented x3 and healthy appearing HENMT: COMMON NORMALS: normocephalic HEAD & SCALP: normocephalic OTHER: Bruising posterior to left ear over basilar region. Superficial laceration behind left ear that is very superficial mainly a skin tear. Eye: COMMON NORMALS: Equal, round and reactive pupils present and EOMs intact bilaterally PUPIL: Yes Equal, round and reactive pupils present Neck/C-Spine: COMMON NORMALS: full ROM and supple Chest: COMMONS NORMALS: normal inspection of the chest and normal palpation of entire chest wall Resp: COMMON NORMALS: normal respiratory effort, No retractions, No use of accessory muscles and clear to auscultation bilaterally AUSCULTATION: clear to auscultation bilaterally Cardio: COMMON NORMALS: regular rate, regular rhythm and No murmurs present (Cardio) RATE: regular rate RHYTHM: regular rhythm GI: COMMON NORMALS: Normal to inspection, nondistended, normoactive bowel sounds present, Soft to palpation, non-tender and no masses PALPATION: Yes Soft to palpation Extremity: COMMON NORMALS: normal to inspection and full ROM Neuro: COMMON NORMALS: patient oriented x3, moves all extremities and no focal motor deficits Psych: COMMON NORMALS: mental status grossly normal, Normal thought process present and cooperative THOUGHT PROCESS: Normal thought process present Skin: COMMON NORMALS: no rashes or lesions noted and no wounds GENERAL SKIN EXAM: no rashes or lesions noted Course Vital Signs: Vital signs: Vital Signs Temperature 97.7 F 01/29/21 02:02 Pulse Rate 55 L 01/29/21 03:30 Respiratory Rate 16 01/29/21 02:02 Blood Pressure 127/68 01/29/21 03:30 Pulse Oximetry 95 01/29/21 03:30 MDM - Fall MDM Narrative: Medical decision making narrative: Jennifer presents here with closed head injury and some shoulder pain from a fall. Her head CT neck CT and x-rays are all normal. Did have patient ambulate here and she was able to ambulate with a walker but does have quite a bit of weakness. I spoke to her at length about being admitted or possible fpc placement. She adamantly refused. She states she does have a caregiver that comes daily and helps her. She states that she does not want to go to a fpc or be admitted. Patient had someone come pick her up and patient was discharged. Imaging Data^: CT Head: Radiologist's impression: [address] [address] [address] Scan Report Signed Patient: Jennifer Sahu Unit #: [id number] : 1950 Age/Sex: 70 / F ADM Date: 01/29/21 Loc: ER Room/Bed: Attending Dr: Ordering Provider/Ordering MD: Pablo Bonilla MD Date of Service: 01/29/21 Procedure(s): CT head wo con* [id number] Accession Number(s): [id number] Report Number: [id number] PROCEDURE INFORMATION: Exam: CT Head Without Contrast Exam date and time: 01/29/2021 2:08 AM Age: 70 years old Clinical indication: Injury or trauma; Blunt trauma (contusions or hematomas); Patient HX: Fall at home. Sustained blow to occiput. C/O neck pain. Currently on plavix for recent cardiac catheterization. Best positioning due to PT kyphosis. Head had to be scanned in large body sfov. TECHNIQUE: Imaging protocol: Computed tomography of the head without contrast. Radiation optimization: All CT scans at this facility use at least one of these dose optimization techniques: automated exposure control; mA and/or kV adjustment per patient size (includes targeted exams where dose is matched to clinical indication); or iterative reconstruction. COMPARISON: CT head wo con* [id number] 03/15/2020 9:13 PM RADIATION DOSE METRICS: Total DLP (mGy-cm): 989.46 FINDINGS: Brain: Normal. No hemorrhage. Unremarkable white matter. No mass effect. Cerebral ventricles: No ventriculomegaly. Bones/joints: Unremarkable. No acute fracture. Paranasal sinuses: Left chronic maxillary sinusitis is present. No fluid levels. Mastoid air cells: Visualized mastoid air cells are well aerated. Soft tissues: A small left parietal scalp swelling is noted. CT/CT head wo con* [id number] IMPRESSION: No acute intracranial abnormality. Other CT: Radiologist's impression: [address] [address] [address] Scan Report Signed Patient: Jennifer Sahu Unit #: [id number] : 1950 Age/Sex: 70 / F ADM Date: 01/29/21 Loc: ER Room/Bed: Attending Dr: Ordering Provider/Ordering MD: Pablo Bonilla MD Date of Service: 01/29/21 Procedure(s): CT cervical spin wo con* [id number] Accession Number(s): [id number] Report Number: [id number] PROCEDURE INFORMATION: Exam: CT Cervical Spine Without Contrast Exam date and time: 01/29/2021 2:08 AM Age: 70 years old Clinical indication: Injury or trauma; Blunt trauma; Patient HX: Fall at home. Sustained blow to occiput. C/O neck pain. Currently on plavix for recent cardiac catheterization. Best positioning due to PT kyphosis. Head had to be scanned in large body sfov. TECHNIQUE: Imaging protocol: Computed tomography images of the cervical spine without contrast. Radiation optimization: All CT scans at this facility use at least one of these dose optimization techniques: automated exposure control; mA and/or kV adjustment per patient size (includes targeted exams where dose is matched to clinical indication); or iterative reconstruction. COMPARISON: No relevant prior studies available. RADIATION DOSE METRICS: Total DLP (mGy-cm): 948.91 FINDINGS: Vertebrae: No acute fracture. Normal alignment. The disc heights are reduced at multiple levels with osteophytes. Soft tissues: Unremarkable. Lungs: Lung apices are normal. CT/CT cervical spin wo con* [id number] IMPRESSION: No fracture or subluxation is seen. Multilevel degenerative changes are present. CXR: Attestation: I personally reviewed and interpreted this imaging study as follows: My impression: no acute abnormality xr r shoulder: Attestation: I personally reviewed and interpreted this imaging study as follows: My impression: no acute fx Discharge Plan Discharge Patient Disposition: Home Clinical Impression: Fall Qualifiers: Encounter type: initial encounter Qualified Code(s): W19.XXXA - Unspecified fall, initial encounter Closed head injury Qualifiers: Encounter type: initial encounter Qualified Code(s): S09.90XA - Unspecified injury of head, initial encounter Condition: Stable Prescriptions: No Action spironolactone 25 mg tablet 25 mg PO DAILY RF: 0 clopidogrel [Plavix] 75 mg tablet 75 mg PO DAILY RF: 0 nitroglycerin 0.4 mg tablet, sublingual 0.4 mg SUBLINGUAL Q5M PRN (Reason: chest pain) Qty: 25 RF: 8 furosemide 40 mg tablet 40 mg PO DAILY RF: 0 propranolol 20 mg tablet 20 mg PO BID Qty: 60 RF: 0 pantoprazole 40 mg Tablet,Delayed Release (Dr/Ec) 40 mg PO DAILY RF: 0 tizanidine 2 mg Tablet 2 mg PO BID PRN (Reason: Muscle Spasm) RF: 0 tramadol 50 mg Tablet 100 mg PO BID PRN (Reason: Pain) RF: 0 atorvastatin 40 mg Tablet 40 mg PO BEDTIME Qty: 30 RF: 0 aspirin 81 mg Tablet,Delayed Release (Dr/Ec) 81 mg PO DAILY Qty: 30 RF: 0 Discharge Orders: Discharge ED (Routine); Ordered 01/29/21 Ordered By: Pablo Bonilla Referrals: Raul Schaeffer MD [Primary Care Provider] - 1-3 days Discharge Diet: Advance as tolerated Discharge Activity: Resume usual activity Patient Instructions: Clavicle Fracture (ED) Coding Level of Care Code ED Licensed [employer] 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
--- NOTE | 2021-01-29 02:37 | XR_ITS ---
WS: [id number] PORTABLE CHEST HISTORY: fall COMPARISON: 03/15/2020 Lung volumes are decreased. Mild pulmonary edema and interstitial thickening. No focal pneumonia. No pleural effusion or pneumothorax. Cardiac size: Normal. Mediastinum/Aorta: Moderate atherosclerosis aorta. Severe osteopenia with degenerative changes at the shoulder joints. Numerous surgical sutures in the LEFT upper abdomen. XR/XR chest 1V portable [id number] IMPRESSION: 1. Mild pulmonary edema. 2. Marked ectasia and atherosclerosis aorta.
[2021-01-29 03:30] VITALS: BP 127/68; PULSE 55; O2SAT 95
--- NOTE | 2021-01-29 03:30 | XR_ITS ---
WS: [id number] RIGHT SHOULDER: 3 VIEW(S) TECHNIQUE: Internal and external rotation with Y view. HISTORY: Pain. COMPARISON: 06/29/2014 No fracture or dislocation or soft tissue abnormality. Markedly high riding humeral head. Severe AC joint and glenohumeral joint arthritis. Osteophytes with sclerosis and osteopenia. Numerous posterior rib fractures are identified. These do appear to be healed and involve fourth, fif th and seventh ribs. XR/XR shoulder RT min 2V* [id number] IMPRESSION: 1. Severe AC joint and glenohumeral joint arthritis. 2. Prior remote healed RIGHT rib fractures.
--- NOTE | 2021-01-29 04:10 | PC.NURSE ---
Pt ambulated with assist by x2 nurse. Pt used walker and ambulated about 12feet before tiring. Pt states at home she has a bathroom attached to her bedroom and she does not have to walk far.
[2021-01-29 05:28] VITALS: BP 106/61; PULSE 60; RESP 16; O2SAT 98
--- NOTE | 2021-01-29 09:16 | DCPLANNER ---
forest manager had message to schedule a follow up appointment for patient with ortho for a clavicle fracture. forest manager called the ortho clinic, spoke with Evita, gave clinic patients information. forest manager was told that patients information would be printed and reviewed. Clinic will call patient with appointment information.
--- NOTE | 2021-02-03 15:18 | DCPLANNER ---
Patients appointment was cancelled due to patient being in hospital.
== END 2021-01-29 05:25 | disposition home or self-care (01) ==
PROVIDERS: Emergency Provider Emergency Medicine; PCP Family Medicine
DX: S09.90XA Unspecified injury of head, initial encounter (principal); W18.30XA Fall on same level, unspecified, initial encounter; W22.8XXA Striking against or struck by other objects, initial encounter; I48.91 Unspecified atrial fibrillation; Z79.82 Long term (current) use of aspirin; Z79.02 Long term (current) use of antithrombotics/antiplatelets
CPT/HCPCS: 70450; 71045; 72125; 73030; 99283; A6446

== ENCOUNTER 2021-01-29 17:06 | Observation (INO) | payer MEDICARE, MEDICAID, SELFPAY ==
[2021-01-29 17:25] VITALS: BP 160/84; PULSE 66; RESP 18; TEMP 36.8; O2SAT 100; BMI 41.3
--- NOTE | 2021-01-29 18:49 | XRR_ITS ---
PROCEDURE INFORMATION: Exam: XR Chest Exam date and time: 01/29/2021 6:54 PM Age: 70 years old Clinical indication: Other: AMS; Prior surgery; Surgery type: Stomach TECHNIQUE: Imaging protocol: XR of the chest. Views: 1 view. COMPARISON: CR XR chest 1V portable [id number] 01/29/2021 2:54 AM FINDINGS: Lungs: The lungs are hyperinflated with unchanged mild fibrosis and basilar scarring. No consolidation. The pulmonary vascularity is within normal limits. Pleural spaces: Unremarkable. No pleural effusion. No pneumothorax. Heart/Mediastinum: There is cardiomegaly. Bones/joints: No acute abnormality. Osteopenia and diffuse severe degenerative changes in the spine are noted. Intraperitoneal space: Postoperative clips are noted in the left upper abdomen. XR/XR chest 1V portable [id number] IMPRESSION: No acute findings.
--- NOTE | 2021-01-29 18:49 | CTR_ITS ---
PROCEDURE INFORMATION: Exam: CT Head Without Contrast Exam date and time: 01/29/2021 6:58 PM Age: 70 years old Clinical indication: Injury or trauma; Blunt trauma (contusions or hematomas); Consciousness not specified; Patient HX: AMS p unwitnessed fall TECHNIQUE: Imaging protocol: Computed tomography of the head without contrast. Radiation optimization: All CT scans at this facility use at least one of these dose optimization techniques: automated exposure control; mA and/or kV adjustment per patient size (includes targeted exams where dose is matched to clinical indication); or iterative reconstruction. COMPARISON: CT head wo con* [id number] 01/29/2021 2:31 AM RADIATION DOSE METRICS: Total DLP (mGy-cm): 922.53 FINDINGS: Brain: There is volume loss and periventricular low density compatible with chronic small vessel disease changes. There is no acute hemorrhage, edema or mass effect. There are small bifrontal benign hygromas. Cerebral ventricles: No ventriculomegaly. Bones/joints: Unremarkable. No acute fracture. Paranasal sinuses: There is complete opacification left maxillary sinus with bony sclerosis compatible with chronic sinusitis. Mastoid air cells: Visualized mastoid air cells are well aerated. Soft tissues: Unremarkable. Nasopharynx: There is unchanged patchy opacification left frontal and ethmoidal air cells. CT/CT head wo con* [id number] IMPRESSION: No acute intracranial abnormality. Unchanged exam. Radiation Dose CTDIVOL = (mGy): DLP = 922.53 (mGy-cm)
[2021-01-29 19:02] VITALS: BP 124/86; PULSE 86; RESP 22; O2SAT 96
[2021-01-29 19:12] LABS: Basophils # 0.1 10^3/uL (0.0-0.1); Basophils % 0.4 %; Eosinophils # 0.1 10^3/uL (0.0-0.8); Eosinophils % 1.1 %; Hematocrit 39.1 % (37.0-47.0); Hemoglobin 12.2 g/dL (11.5-15.3); Lymphocytes # 2.2 10^3/uL (0.8-4.8); Lymphocytes % 18.6 %; Mean Corpuscular HGB Conc 31.2 g/dL (30.0-36.0); Mean Corpuscular Hemoglobin 27.9 pg (28.0-34.0); Mean Corpuscular Volume 89.3 fL (81-99); Mean Platelet Volume 12.6 fL (7.4-10.4); Monocytes # 1.3 10^3/uL (0.2-0.9); Monocytes % 10.6 %; Neutrophils # 8.19 10^3/uL (1.8-7.7); Neutrophils % 69.1 %; Nucleated Red Blood Cells % 0 %; Platelet Count 271 10^3/cmm (130-400); Red Blood Count 4.38 10^6/uL (4.1-5.3); Red Cell Distribution Width 16.8 % (12.1-15.1); White Blood Count 11.8 10^3/uL (4.0-10.0)
[2021-01-29 19:32] LABS: Albumin Level 3.8 g/dL (3.5-5.2); Alkaline Phosphatase 148 IU/L (35-105); Blood Urea Nitrogen 16 mg/dL (8-23); C Reactive Protein 15.5 mg/L (0.0-4.9); Calcium 9.6 mg/dL (8.5-10.5); Carbon Dioxide 22 mmol/L (22-29); Chloride 103 mmol/L (98-107); Globulin 3.5 g/dL (1.3-4.6); Glucose 73 mg/dL (65-115); Osmolality Calculated 278 mOsm/kg (285-295); Sodium 134 mmol/L (136-145); Total Bilirubin 0.5 mg/dL (0.15-1.2); Total Protein 7.3 g/dL (6.6-8.7)
[2021-01-29 19:33] LABS: Lactate (Lactic Acid level) 1.6 mmol/L (0.5-2.2)
[2021-01-29 19:38] LABS: Anion Gap 14.1 (5-19); Aspartate Amino Transferase 39 U/L (0-32); Potassium 5.1 mmol/L (3.5-5.1)
[2021-01-29 19:39] LABS: Alanine Aminotransferase 25 U/L (0-33)
[2021-01-29 19:42] LABS: Creatine Phosphokinase 356 U/L (26-192)
[2021-01-29 19:48] LABS: Add RBC Morph Yes
[2021-01-29 19:49] LABS: Acanthocytes 1+; Hypochromasia 1+; Poikilocytosis 2+; RBC Morph Comp No; Target Cells 1+
[2021-01-29 20:00] VITALS: BP 145/59; PULSE 86; RESP 20; O2SAT 94
[2021-01-29 20:06] LABS: Add Urine Culture? Yes; Add Urine Microscopic? YES; Bacteria Urine 4+ /hpf; Bilirubin Urine Neg (Negative); Blood Urine Neg (Negative); Glucose Urine UA Norm (Normal); Ketones Urine Negative (Negative); Leukocyte Esterase Urine Negative (Negative); Nitrate Urine Positive (Negative); Protein Urine Neg (Negative); RBC Urine 0-4 /hpf (0-2); Urine Appearance Hazy (CLEAR); Urine Color Yellow (Yellow); Urobilinogen Urine Norm (Negative); WBC Urine >100 /hpf (0-5); pH Urine 7 (5-7)
--- NOTE | 2021-01-29 20:24 | ED_ITS ---
HPI - Altered Mental Status General: Chief Complaint: Altered Mental Status Stated Complaint: GENERALIZED WEAKNESS Time Seen by Provider: 01/29/21 18:47 History of Present Illness: HPI narrative: 70-year-old female who fell and had a head and neck injury last night. She was seen here, and offered admission, but wanted to go home. She states after being home, she was up and about in her home throughout the day on and off. She suddenly became more weak this afternoon, and was unable to walk. She has had some mental status changes as well. She seems confused. complaint: altered mental status Onset (ago): hour(s) Severity: moderate Consistency of symptoms: Waxing and Waning Context: history of similar presentation and trauma Associated symptoms: Deny auditory hallucinations or visual hallucinations Review of Systems Const: Denies: fever(s) Eyes: Denies: change in vision ENMT: Denies: odynophagia or sinus pain Card: Denies: chest pain, palpitations or irregular heart rhythm Resp: Denies: dyspnea, productive cough, non-productive cough or wheezing GI: Denies: abdominal pain or nausea : Denies: dysuria or urinary frequency Musc: Reports: neck pain; Denies: back pain, joint redness or joint warmth Skin/Breast: Denies: rash or erythema Neuro: Reports: headache(s) and confusion; Denies: dizziness or vertigo Psych: Denies: visual hallucinations or auditory hallucinations PFSH ED PFSH: Medical History Abnormal stress test Atrial fibrillation Chronic migraine GERD (gastroesophageal reflux disease) HTN (hypertension) Postmenopausal osteoporosis Syncope and collapse Surgical History H/O: hysterectomy Hx of tonsillectomy Post-splenectomy S/P cholecystectomy Family History Other Diabetes Hypertension Social History Smoking and tobacco status: never smoked Alcohol intake: never Physical Exam Const: EXAM LIMITATIONS: altered mental status GENERAL APPEARANCE: cooperative ORIENTATION/CONSCIOUSNESS: Yes awake, Yes oriented to person and Yes oriented to place; not oriented to time HENMT: COMMON NORMALS: normocephalic, external ears normal and Normal external nose present HEAD & SCALP: normocephalic FACE & SINUS: face symmetric NOSE: Normal external nose present and Normal nares present EXTERNAL EAR: Yes external ears normal MOUTH: Normal oral and palatal mucosa present TEETH & GINGIVA: Yes abnormal tooth and associated gingiva THROAT: posterior oropharynx normal Neck/C-Spine: COMMON NORMALS: full ROM CERVICAL SPINE: Yes Cervical spine tenderness (left of midline) and Yes Paracervical spasm (left) Chest: COMMONS NORMALS: normal inspection of the chest Resp: COMMON NORMALS: normal respiratory effort, No use of accessory muscles and clear to auscultation bilaterally AUSCULTATION: clear to auscultation bilaterally, no crackles and no rales GI: COMMON NORMALS: Normal to inspection, nondistended, normoactive bowel sounds present, Soft to palpation and non-tender PALPATION: Yes Soft to palpation Neuro: SENSORIUM/ORIENTATION: Yes oriented to person, Yes oriented to place and No oriented to time Skin: NARRATIVE SKIN EXAM: Extensive ecchymosis to the left side of the neck. Course Consultations: Consultation #1: Justino Vital Signs: Vital signs: Vital Signs Temperature 98.1 F 01/29/21 23:00 Pulse Rate 61 01/29/21 23:00 Respiratory Rate 18 01/29/21 23:00 Blood Pressure 106/56 01/29/21 23:00 Pulse Oximetry 97 01/29/21 23:00 MDM - Altered Mental Status MDM Narrative: Medical decision making narrative: Patient seems confused. Her blood cell count is 11.8. CK is mildly elevated. Other laboratory appears benign. She is weak. She is complaining of a headache. Repeat CT scan of the head is still negative. Chest x-ray is negative. Urinalysis shows 4+ bacteria, greater than 100 white blood cells, and is nitrate positive. She is being given Rocephin. She will get fluid for rehydration. She will come in for observation Lab Data: Labs: Lab Results 01/29/21 01/29/21 01/29/21 Range/Units 00:20 00:20 19:00 WBC 11.8 H (4.0-10.0) 10^3/ uL RBC 4.38 (4.1-5.3) 10^6/u L Hgb 12.2 (11.5-15.3) g/dL Hct 39.1 (37.0-47.0) % MCV 89.3 (81-99) fL MCH 27.9 L (28.0-34.0) pg MCHC 31.2 (30.0-36.0) g/dL RDW 16.8 H (12.1-15.1) % Plt Count 271 (130-400) 10^3/c mm MPV 12.6 H (7.4-10.4) fL Neut % (Auto) 69.1 % Lymph % (Auto) 18.6 % [place] % (Auto) 10.6 % Eos % (Auto) 1.1 % Baso % (Auto) 0.4 % Neut # (Auto) 8.19 H (1.8-7.7) 10^3/u L Lymph # (Auto) 2.2 (0.8-4.8) 10^3/u L [place] # (Auto) 1.3 H (0.2-0.9) 10^3/u L Eos # (Auto) 0.1 (0.0-0.8) 10^3/u L Baso # (Auto) 0.1 (0.0-0.1) 10^3/u L Nucleated RBC % (a uto) 0 % Nucleated RBCs # 0.0 /100WBC Hypochromasia 1+ H Poikilocytosis 2+ H Target Cells 1+ H Acanthocytes (Spur ) 1+ H D-Dimer 1.17 H (0-0.59) ug/mIFE U Specimen Type Venous Vlad Test N/a VBG pH 7.47 H (7.32-7.42) VBG pCO2 30.7 L (41-51) mmHg VBG pO2 41.4 H (25-40) mmHg VBG HCO3 22.5 L (24-28) mmol/L VBG Base Excess -0.4 (-3.0-3.0) mmol/ L Lay Brother ID [place] Sodium (136-145) mmol/L Potassium (3.5-5.1) mmol/L Chloride (98-107) mmol/L Carbon Dioxide (22-29) mmol/L Anion Gap (5-19) BUN (8-23) mg/dL Creatinine (0.5-0.9) mg/dL GFR Calculation Glucose (65-115) mg/dL Calculated Osmolal ity (285-295) mOsm/k g Lactate (0.5-2.2) mmol/L Calcium (8.5-10.5) mg/dL Total Bilirubin (0.15-1.2) mg/dL AST (0-32) U/L ALT (0-33) U/L Alkaline Phosphata se (35-105) IU/L Creatine Kinase (26-192) U/L C-Reactive Protein (0.0-4.9) mg/L Total Protein (6.6-8.7) g/dL Albumin (3.5-5.2) g/dL Globulin (1.3-4.6) g/dL Urine Color (Yellow) Urine Appearance (CLEAR) Urine pH (5-7) Ur Specific Gravit y (1.005-1.030) Urine Protein (Negative) Urine Glucose (UA) (Normal) Urine Ketones (Negative) Urine Blood (Negative) Urine Nitrate (Negative) Urine Bilirubin (Negative) Urine Urobilinogen (Negative) mg/dL Ur Leukocyte Jayda ase (Negative) Urine RBC (0-2) /hpf Urine WBC (0-5) /hpf Ur Squamous Epith Cells (0-5) /hpf Amorphous Sediment Urine Bacteria (NONE) /hpf 01/29/21 01/29/21 01/29/21 Range/Units 19:00 19:00 19:15 WBC (4.0-10.0) 10^3/ uL RBC (4.1-5.3) 10^6/u L Hgb (11.5-15.3) g/dL Hct (37.0-47.0) % MCV (81-99) fL MCH (28.0-34.0) pg MCHC (30.0-36.0) g/dL RDW (12.1-15.1) % Plt Count (130-400) 10^3/c mm MPV (7.4-10.4) fL Neut % (Auto) % Lymph % (Auto) % [place] % (Auto) % Eos % (Auto) % Baso % (Auto) % Neut # (Auto) (1.8-7.7) 10^3/u L Lymph # (Auto) (0.8-4.8) 10^3/u L [place] # (Auto) (0.2-0.9) 10^3/u L Eos # (Auto) (0.0-0.8) 10^3/u L Baso # (Auto) (0.0-0.1) 10^3/u L Nucleated RBC % (a uto) % Nucleated RBCs # /100WBC Hypochromasia Poikilocytosis Target Cells Acanthocytes (Spur ) D-Dimer (0-0.59) ug/mIFE U Specimen Type Vlad Test VBG pH (7.32-7.42) VBG pCO2 (41-51) mmHg VBG pO2 (25-40) mmHg VBG HCO3 (24-28) mmol/L VBG Base Excess (-3.0-3.0) mmol/ L Lay Brother ID Sodium 134 L (136-145) mmol/L Potassium 5.1 (3.5-5.1) mmol/L Chloride 103 (98-107) mmol/L Carbon Dioxide 22 (22-29) mmol/L Anion Gap 14.1 (5-19) BUN 16 (8-23) mg/dL Creatinine 0.6 (0.5-0.9) mg/dL GFR Calculation Not Reportable Glucose 73 (65-115) mg/dL Calculated Osmolal ity 278 L (285-295) mOsm/k g Lactate 1.6 (0.5-2.2) mmol/L Calcium 9.6 (8.5-10.5) mg/dL Total Bilirubin 0.5 (0.15-1.2) mg/dL AST 39 H (0-32) U/L ALT 25 (0-33) U/L Alkaline Phosphata se 148 H (35-105) IU/L Creatine Kinase 356 H* (26-192) U/L C-Reactive Protein 15.5 H (0.0-4.9) mg/L Total Protein 7.3 (6.6-8.7) g/dL Albumin 3.8 (3.5-5.2) g/dL Globulin 3.5 (1.3-4.6) g/dL Urine Color Yellow (Yellow) Urine Appearance Hazy A (CLEAR) Urine pH 7 (5-7) Ur Specific Gravit y 1.010 (1.005-1.030) Urine Protein Neg (Negative) Urine Glucose (UA) Norm (Normal) Urine Ketones Negative (Negative) Urine Blood Neg (Negative) Urine Nitrate Positive H (Negative) Urine Bilirubin Neg (Negative) Urine Urobilinogen Norm (Negative) mg/dL Ur Leukocyte Jayda ase Negative (Negative) Urine RBC 0-4 H (0-2) /hpf Urine WBC >100 H (0-5) /hpf Ur Squamous Epith Cells 5-10 H (0-5) /hpf Amorphous Sediment Not Reportable Urine Bacteria 4+ H (NONE) /hpf Discharge Plan Discharge Patient Disposition: Placed in Observation Admit Provider: Sergio Badillo Clinical Impression: Altered mental status Qualifiers: Altered mental status type: disorientation Qualified Code(s): R41.0 - Disorientation, unspecified Urinary tract infection Qualifiers: Urinary tract infection type: acute cystitis Hematuria presence: without hematuria Qualified Code(s): N30.00 - Acute cystitis without hematuria Coding Level of Care Code ED [employer] 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
--- NOTE | 2021-01-29 20:53 | P.HP_ITS ---
Providers/Chief Complaint Primary Care Provider: Raul Schaeffer MD Chief Complaint: GENERALIZED WEAKNESS History of Present Illness Jennifer Sahu is a 70 year old female who has history of coronary artery disease recent stent 03/11 and distal circumflex, recurrent falls, presyncope, had Holter monitoring, which showed baseline sinus rhythm with few PACs and atrial fibrillation rhythm, she is not a candidate of anticoagulation due to recurrent falls, presented today after sustaining a fall and weakness. Patient is stating that she fell yesterday when she was trying to get out of her bathroom and go towards her living room when she tripped over her walker. She hit her neck around the walker. She is denying syncopal event, seizure-like activities. She is feeling weaker and not able to carry on daily activities, she was seen in the ER yesterday, her work-up revealed benign CT head findings, she wanted to go home but unfortunately came back because of worsening of weakness. She is denying fever, nausea, vomiting, chest pain, shortness of breath and abdominal pain. She is endorsing dehydration and feeling thirsty. Diagnostics in the ER revealed normal CBC, abnormal UA, creatinine kinase 256, normal creatinine, clinically looks dehydrated with facial flushing, chest x-ray without acute abnormalities, head CT unremarkable, she was complaining of right shoulder pain shoulder x-ray revealed severe arthritis remote right rib fracture, she does not have any strokelike symptoms Review of Systems Const: Reports: chills, body aches, fatigue and malaise; Denies: fever(s) Eyes: Denies: change in vision ENMT: Denies: throat pain Card: Reports: swelling of feet/ankles, pre-syncope and dyspnea on exertion; Denies: chest pain Resp: Denies: dyspnea GI: Denies: abdominal pain : Denies: flank pain or urinary urgency Musc: Reports: muscle cramps Skin/Breast: Reports: skin swelling, new lesions and lesions Neuro: Reports: difficulty walking, frequent falls and confusion; Denies: headache(s) Psych: Reports: sleeping more; Denies: anxiety Endo: Denies: polyuria Jarrell/Lymph: Denies: easy bruising All/Imm: Denies: urticaria Medications/Allergies Home Medications Medication Instructions Recorded Confirmed Last Taken Type spironolactone 25 mg tablet 25 mg PO DAILY 12/25/19 03/25/2020 08:00 History pantoprazole 40 mg PO DAILY 03/15/20 03/25/20 03/15/20 08:00 History tizanidine 2 mg PO BID PRN 03/16/20 03/25/20 03/15/20 08:00 History tramadol 100 mg PO BID PRN 03/16/20 03/25/20 03/15/20 01:00 History aspirin 81 mg PO DAILY #30 tab 03/18/20 03/25/20 Unknown Rx atorvastatin 40 mg PO BEDTIME #30 tab 03/18/20 03/25/20 Unknown Rx clopidogrel 75 mg tablet 75 mg PO DAILY tab 06/17/20 06/17/20 Unknown History nitroglycerin 0.4 mg sublingual 0.4 mg SUBLINGUAL Q5M PRN #25 tab 06/17/20 06/17/20 Unknown Rx tablet furosemide 40 mg tablet 40 mg PO DAILY 12/17/20 Unknown History propranolol 20 mg tablet 20 mg PO BID #60 tab 01/25/21 Unknown Rx Allergies Allergy/AdvReac Type Severity Reaction Status Date / Time Penicillins Allergy ALGY-Rash Verified 01/29/21 17:25 PFSH Acute PFSH: Medical History Abnormal stress test Atrial fibrillation Chronic migraine GERD (gastroesophageal reflux disease) HTN (hypertension) Postmenopausal osteoporosis Syncope and collapse Surgical History H/O: hysterectomy Hx of tonsillectomy Post-splenectomy S/P cholecystectomy Family History Other Diabetes Hypertension Social History Smoking and tobacco status: never smoked Alcohol intake: never Vitals/I&O/Wt Last Vital Signs Temp 98.2 F 01/29/21 17:25 Pulse 86 01/29/21 19:02 Resp 22 H 01/29/21 19:02 BP 124/86 01/29/21 19:02 Pulse Ox 96 01/29/21 19:02 Weight last 48 hrs Weight 92.986 kg Physical Exam Narrative: EXAM NARRATIVE: Very pleasant cooperative female Appropriate grooming Morbid obesity Clinically looks very dry however has lower extremity 1+ pitting edema S1, S2 no murmur appreciated Bilateral breath sounds without audible stridor or wheezing Abdomen distended central obesity nontender bowel sound present EOMI, PERRLA Short attention span, verbally directable GCS 15 no neurological deficits no signs of stroke Patient does look lethargic and dehydrated Facial flushing Limited range of motion of right shoulder however able to do abduction up to 45 degrees, no vascular compromise of upper extremities Data : 01/29/21 19:00 01/29/21 19:00 A&P Assessment and plan (1) Fall: Status: Acute Qualifiers: Encounter type: initial encounter Qualified Code(s): W19.XXXA - Unspecified fall, initial encounter (2) Urinary tract infection: Status: Acute Qualifiers: Hematuria presence: without hematuria Urinary tract infection type: acute cystitis Qualified Code(s): N30.00 - Acute cystitis without hematuria (3) Atrial fibrillation: Status: Acute Additional A&P Information Recurrent falls This time patient is endorsing losing her balance while she was maneuvering her walker She does have history of recurrent falls, syncopal event, Holter monitoring revealed PACs, atrial fibrillation She is not a candidate for anticoagulation, I will repeat her EKG today, current heart rate is in 80s with normal blood pressure, she saturating well on room air Clinically looks dehydrated with facial flushing and dry mucous membrane Encourage p.o. intake avoid mirtazapine or any sedatives PT evaluation in the morning Patient has petechiae purpura of left neck area, CT head unremarkable mild CPK elevation, I will keep her on gentle fluid hydration and monitor urine output I would obtain D-dimer and echo and monitor her heart rate if she becomes bradycardic I would encourage discontinuing propanolol which can cause sedation UTI Short attention span otherwise verbally redirectable Abnormal UA We will keep her on ceftriaxone and obtain urine culture Gentle fluid hydration Atrial fibrillation no RVR Not a candidate of anticoagulation, Discontinue propanolol and use metoprolol twice a day Petechiae of left neck area: Hold aspirin and Plavix for now and reevaluate before her discharge Full code DVT prophylaxis Lovenox Cardiac diet Attestations Medical Necessity Statement*: Anticipating discharge in less than 48 hours will need overnight IV fluid hydration for dehydration and management of UTI with antibiotics, physical therapy will decide her disposition Time Spent in Patient Care: (>than 50% of time spent in counselling and/or direct pt care on unit) . 40mins Coding Level of Care Code Acute Legal Compliance Officer for Chg Fwd Diagnoses Fall W19.XXXA Encounter type: initial encounter Urinary tract infection N30.00 Hematuria presence: without hematuria Urinary tract infection type: acute cystitis Atrial fibrillation I48.91
[2021-01-29 20:57] VITALS: RESP 20; O2SAT 98
[2021-01-29] MEDS: cefTRIAXone 1,000 MG in sodium chloride 0.9% (plus) 50 ML 100 MG IV (20:57)
[2021-01-29] MEDS: morphine 4 mg/mL SDV 1 mL 2 MG IVP (20:57)
[2021-01-29] MEDS: ketorolac 30 mg/mL INJ 15 MG IVP (20:57)
[2021-01-29] MEDS: sodium chloride 0.9% 1,000 ML 999 ML IV (21:19)
[2021-01-29 22:00] VITALS: BP 127/90; PULSE 84; RESP 20; O2SAT 97
[2021-01-29 23:00] VITALS: BP 106/56; PULSE 61; RESP 18; TEMP 36.7; O2SAT 97
[2021-01-29] MEDS: enoxaparin 40 mg/0.4 mL Syringe SUBCUT (23:24)
[2021-01-30 00:24] LABS: Blood Gas Sample Type Venous
[2021-01-30 00:32] LABS: HCO3 VBG 22.5 mmol/L (24-28); PCO2 VBG 30.7 mmHg (41-51); PO2 VBG 41.4 mmHg (25-40); pH VBG 7.47 (7.32-7.42)
[2021-01-30 00:33] LABS: Base Excess VBG -0.4 mmol/L (-3.0-3.0)
[2021-01-30 00:39] LABS: D Dimer 1.17 ug/mIFEU (0-0.59)
[2021-01-30 04:00] VITALS: BP 106/56; PULSE 77; RESP 17; TEMP 37.1; O2SAT 97
[2021-01-30 07:34] VITALS: BP 119/57; PULSE 76; RESP 18; TEMP 36.4; O2SAT 94
[2021-01-30 07:52] LABS: Basophils # 0.1 10^3/uL (0.0-0.1); Basophils % 0.5 %; Eosinophils # 0.1 10^3/uL (0.0-0.8); Eosinophils % 1.4 %; Hematocrit 32.9 % (37.0-47.0); Hemoglobin 10.2 g/dL (11.5-15.3); Lymphocytes # 3.4 10^3/uL (0.8-4.8); Lymphocytes % 37.3 %; Mean Corpuscular Hemoglobin 28.1 pg (28.0-34.0); Mean Corpuscular Volume 90.6 fL (81-99); Mean Platelet Volume 13.7 fL (7.4-10.4); Monocytes # 1.2 10^3/uL (0.2-0.9); Monocytes % 13.3 %; Neutrophils % 47.3 %; Nucleated Red Blood Cells % 0 %; Platelet Count 217 10^3/cmm (130-400); Red Blood Count 3.63 10^6/uL (4.1-5.3); Red Cell Distribution Width 17.1 % (12.1-15.1); White Blood Count 9.1 10^3/uL (4.0-10.0)
[2021-01-30 08:22] LABS: Blood Urea Nitrogen 17 mg/dL (8-23); Calcium 8.8 mg/dL (8.5-10.5); Carbon Dioxide 19 mmol/L (22-29); Chloride 104 mmol/L (98-107); Glucose 42 mg/dL (65-115); Osmolality Calculated 276 mOsm/kg (285-295); Sodium 134 mmol/L (136-145)
[2021-01-30] MEDS: spironolactone 25 mg Tablet PO (08:23)
[2021-01-30] MEDS: pantoprazole DR 40 mg Tablet PO (08:23)
[2021-01-30] MEDS: FUROsemide 40 mg Tablet PO (08:24)
[2021-01-30] MEDS: acetaminophen 500 mg Tablet PO ×2 (08:28→21:10)
[2021-01-30 08:45] LABS: Anion Gap 15.8 (5-19); Potassium 4.8 mmol/L (3.5-5.1)
[2021-01-30 09:07] LABS: Slide Review Slide Review Perform
[2021-01-30 12:00] VITALS: BP 142/68; PULSE 62; RESP 18; TEMP 36.8; O2SAT 99
--- NOTE | 2021-01-30 14:28 | P.PN_ITS ---
Subjective Subjective: Interval history: 70 year old female who has history of hypertension, GERD, liver abscess, migraines, essential tremors, coronary artery disease recent stent 03/11 and distal circumflex, recurrent falls, presyncope, had Holter monitoring, which showed baseline sinus rhythm with few PACs and atrial fibrillation rhythm, she is not a candidate of anticoagulation due to recurrent falls with prior T11-12 vertebral fracture who presented to hospital after she again fell. Patient is stating that she fell yesterday when she was trying to get out of her bathroom and go towards her living room when she tripped over her walker. She hit her neck around the walker. She is denying syncopal event, seizure-like activities. She is feeling weaker and not able to carry on daily activities, she was seen in the ER yesterday, her work-up revealed benign CT head findings. Upon return to hospital due to worsening generalized weakness her lab work up showed a WBC of 9.1, hemoglobin of 10.2, hematocrit 32.9 and platelet count 217. Sodium 134, potassium 4.8, chloride 104, bicarb 19, BUN 17 and creatinine of 0.6. Glucose was low at 42. AST of 39, ALT of 25, alkaline phosphatase 148 and creatinine kinase of 356. Urinalysis was positive for nitrites it over 100 WBCs and 4+ bacteria. Patient was started on Rocephin 1g IV q24hr. 01/30/21 Patient was feeling ok, noted to have some bleeding from minor cut on left ear which had stopped. No new neurological deficits. Continue to complain of generalized weakness. No fever, chills, nausea or vomiting. Medications: Reviewed: Yes Vitals/I&O/Wt Last Vital Signs Temp 98.3 F 01/30/21 12:00 Pulse 62 01/30/21 12:00 Resp 18 01/30/21 12:00 BP 142/68 01/30/21 12:00 Pulse Ox 99 01/30/21 12:00 01/29/21 01/30/21 01/30/21 22:59 06:59 14:59 Intake Total 50 / 50 40 / 90 480 / 480 Output Total 0 / 0 400 / 400 Balance 50 / 50 40 / 90 80 / 80 Weight last 48 hrs Weight 92.986 kg Physical Exam Narrative: EXAM NARRATIVE: General : Alert, Awake, oriented x 3, NAD HEENT: Grossly unremarkable, small post lac, no active bleed CVS: S1, S2 no murmur appreciated Chest: Bilateral breath sounds without audible stridor or wheezing Abdomen: central obesity nontender bowel sound present Extremity: 1 plus b/l pitting edema Data : 01/30/21 05:50 01/30/21 05:50 Micro: Microbiology 01/29/21 20:57 Blood Culture - Preliminary Blood SPECIMEN COLLECTED 01/29/21 21:02 Blood Culture - Preliminary Blood SPECIMEN COLLECTED A&P Assessment and plan (1) Fall: Status: Acute Qualifiers: Encounter type: initial encounter Qualified Code(s): W19.XXXA - Unspecified fall, initial encounter (2) Urinary tract infection: Status: Acute Qualifiers: Hematuria presence: without hematuria Urinary tract infection type: acute cystitis Qualified Code(s): N30.00 - Acute cystitis without hematuria (3) Atrial fibrillation: Status: Acute Additional A&P Information Recurrent falls - Etiology unclear - Will r/o CV cause - Possibly due to weakness from infectious process - Fall precautions - Cardiac monitoring - Will review recent ECHO, may consider loop recorder - PT/OT consultation Urinary tract infection - Ua showed positive nitrite with >100 WBC, bacteria - On rocephin 1gIV daily - Follow up on culture Atrial fibrillation with normal ventricular rate - Started on metoprolol - Asa for cva prevention due to fall risk Hypertension - Meds as above Hyperlipidemia - Lipitor 40 mg PO daily - Aldactone 25 mg po daily DVT ppx - Lovenox 40 mg Sq daily Disposition - Plan for home with home care vs SNF based on PT/OT assessment Attestations Medical Necessity Statement*: Will require further hospitalization for management of falls, suspected UTI on IV abx pending cultures Time Spent in Patient Care: Greater than 35 minutes (>than 50% of time spent in counselling and/or direct pt care on unit) . Coding Level of Care Code Acute Apparel Sales Leader for Chg Fwd Diagnoses Fall W19.XXXA Encounter type: initial encounter Urinary tract infection N30.00 Hematuria presence: without hematuria Urinary tract infection type: acute cystitis Atrial fibrillation I48.91
--- NOTE | 2021-01-30 15:09 | USCV_ITS ---
Jennifer Sahu Age: 70 Gender: F : 1950 Exam Date: 01/30/2021 16:04 Ordering Phys: Lety John MD Technologist: Onelia Umanzor Exam Location: [facility] [place] Indication: Recurrent falls BP: 142 / 68 HR: 69 Rhythm: Sinus Technical Quality: Technically difficult study MEASUREMENTS (Male / Female) Normal Values 2D ECHO LV Diastolic Diameter PLAX 2.9 cm 4.2 - 5.9 / 3.9 - 5.3 cm LV Systolic Diameter PLAX 1.5 cm LV Chamber Size 4.0 cm IVS Diastolic Thickness 1.1 cm 0.6 - 1.0 / 0.6 - 0.9 cm IVS Systolic Thickness 1.9 cm LVPW Diastolic Thickness 1.0 cm 0.6 - 1.0 / 0.6 - 0.9 cm LVPW Systolic Thickness 1.2 cm RV Chamber Size 2.9 cm LVOT Diameter 2.0 cm LV Ejection Fraction 2D Teich 80.4 % LA Diameter 3.9 cm LA Width 4.4 cm LA Height 4.3 cm RA Width 1.9 cm RA Height 4.8 cm Aorta at Sinotubular Diameter 2.3 cm M-MODE LV Diastolic Diameter MM 6.2 cm 4.2 - 5.9 / 3.9 - 5.3 cm LV Systolic Diameter MM 4.2 cm LV Ejection Fraction MM Teich 58.6 % IVS Diastolic Thickness MM 1.0 cm 0.6 - 1.0 / 0.6 - 0.9 cm IVS Systolic Thickness MM 1.1 cm LVPW Diastolic Thickness MM 1.4 cm 0.6 - 1.0 / 0.6 - 0.9 cm LVPW Systolic Thickness MM 1.6 cm Aortic Annulus Diameter 3.1 cm LA Ao Ratio MM 1.5 MV E Point Septal Separation 0.5 cm DOPPLER AV Peak Velocity 144.0 cm/s LVOT Peak Velocity 84.0 cm/s AV Area Cont Eq vti 2.0 cm squared AV Area Cont Eq pk 1.9 cm squared MV Area PHT 2.7 cm squared Mitral E to A Ratio 1.2 MV E' Velocity 50.5 cm/s Mitral E to MV E' Ratio 11.2 Mitral E to LV E' Lateral Ratio 9.2 Mitral E to LV E' Septal Ratio 14.1 TR Peak Velocity 299.3 cm/s TR Peak Gradient 35.8 mmHg TV Peak E Velocity 49.0 cm/s PV Peak Velocity 73.0 cm/s RV Acceleration Time 0.1 s RV Ejection Time 0.3 s RV AcT/ET 0.3 FINDINGS Left Ventricle Normal left ventricular size. LV systolic function is normal with EF of 55-60%. No regional wall motion abnormalities. Grade 1 diastolic dysfunction Right Ventricle The right ventricle is normal in size and function. Right Atrium The right atrium is normal in size. Left Atrium The left atrium is normal in size. Mitral Valve Structurally normal mitral valve without significant stenosis or prolapse. There is trace mitral regurgitation. Aortic Valve Structurally normal aortic valve without significant sclerosis or stenosis. There is no aortic regurgitation. Tricuspid Valve Structurally normal tricuspid valve without significant stenosis . Mild tricuspid regurgitation. RVSP is 35-40mmHg. This is consistent with mild pulmonary hypertension Pulmonic Valve Structurally normal pulmonic valve without significant stenosis. There is no pulmonic regurgitation. Pericardium Normal pericardium without effusion. Aorta Normal ascending aorta dimension. CONCLUSIONS LV systolic function is normal with EF of 55-60% Grade 1 diastolic dysfunction Trace mitral regurgitation Mild tricuspid regurgitation Mild pulmonary hypertension Compared to prior echocardiogram from 06/14/2019, no significant changes are noted. Chico Bynum MD (Electronically Signed) Final Date: 31 January 2021 15:51 S
[2021-01-30 16:00] VITALS: BP 123/66; PULSE 87; RESP 18; TEMP 36.6; O2SAT 96
[2021-01-30 20:00] VITALS: BP 123/63; PULSE 69; RESP 20; TEMP 36.7; O2SAT 99
[2021-01-30] MEDS: enoxaparin 40 mg/0.4 mL Syringe SUBCUT (22:44)
[2021-01-31] VITALS (9 sets, daily range): BP systolic 117–138; BP diastolic 61–82; PULSE 70–143; RESP 14–19; TEMP 36.4–37.2; O2SAT 95–100
[2021-01-31] MEDS: acetaminophen 500 mg Tablet PO ×2 (09:07→21:02)
[2021-01-31] MEDS: pantoprazole DR 40 mg Tablet PO (09:08)
[2021-01-31] MEDS: FUROsemide 40 mg Tablet PO (09:08)
[2021-01-31] MEDS: spironolactone 25 mg Tablet PO (09:08)
--- NOTE | 2021-01-31 15:47 | ECG_ITS ---
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 Measurements Intervals Jolley Rate: 116 P: DC: QRS: -2 QRSD: 83 T: -23 QT: 331 QTc: 461 Interpretive Statements ATRIAL FIBRILLATION WITH RAPID VENTRICULAR RESPONSE INFERIOR MYOCARDIAL INFARCTION [40+ ms Q WAVE AND/OR ST/T ABNORMALITY IN II/aVF], OF INDETERMINATE AGE Compared to ECG 03/15/2020 23:25:46 Myocardial infarct finding now present Sinus rhythm no longer present Electronically Signed On 02-07-2021 10:59:23 CDT by Gena West M.D. [id number]
--- NOTE | 2021-01-31 16:09 | P.PN_ITS ---
Subjective Subjective: Interval history: 70 year old female who has history of hypertension, GERD, liver abscess, migraines, essential tremors, coronary artery disease recent stent 03/11 and distal circumflex, recurrent falls, presyncope, had Holter monitoring, which showed baseline sinus rhythm with few PACs and atrial fibrillation rhythm, she is not a candidate of anticoagulation due to recurrent falls with prior T11-12 vertebral fracture who presented to hospital after she again fell. Patient is stating that she fell yesterday when she was trying to get out of her bathroom and go towards her living room when she tripped over her walker. She hit her neck around the walker. She is denying syncopal event, seizure-like activities. She is feeling weaker and not able to carry on daily activities, she was seen in the ER yesterday, her work-up revealed benign CT head findings. Upon return to hospital due to worsening generalized weakness her lab work up showed a WBC of 9.1, hemoglobin of 10.2, hematocrit 32.9 and platelet count 217. Sodium 134, potassium 4.8, chloride 104, bicarb 19, BUN 17 and creatinine of 0.6. Glucose was low at 42. AST of 39, ALT of 25, alkaline phosphatase 148 and creatinine kinase of 356. Urinalysis was positive for nitrites it over 100 WBCs and 4+ bacteria. Patient was started on Rocephin 1g IV q24hr. 01/30/21 Patient was feeling ok, noted to have some bleeding from minor cut on left ear which had stopped. No new neurological deficits. Continue to complain of generalized weakness. No fever, chills, nausea or vomiting. 01/31/21 patient was more alert and energetic today. Did not have any specific complaints however later she did have what appeared to be atrial fibrillation with rapid ventricular response. Patient does take propanolol at home which was held. No chest pain. No fever chills. No nausea vomiting. Medications: Reviewed: Yes Vitals/I&O/Wt Last Vital Signs Temp 97.8 F 01/31/21 12:00 Pulse 143 H 01/31/21 15:52 Resp 14 01/31/21 12:00 BP 121/81 01/31/21 15:52 Pulse Ox 97 01/31/21 12:00 01/31/21 01/31/21 01/31/21 06:59 14:59 22:59 Intake Total 480 / 1200 180 / 180 Output Total 500 / 1675 600 / 600 Balance -20 / -475 -420 / -420 Weight last 48 hrs Weight 92.986 kg Physical Exam 2 Narrative: EXAM NARRATIVE: General : Pleasantly confused. HEENT: Grossly unremarkable, small post lac, no active bleed CVS: irregularly irregular Chest: Bilateral breath sounds without audible stridor or wheezing Abdomen: central obesity nontender bowel sound present Extremity: 1 plus b/l pitting edema Data : 01/30/21 05:50 01/30/21 05:50 Micro: Microbiology 01/29/21 19:15 Urine Culture - Preliminary Urine,Clean Catch Gram Negative Rods 01/29/21 20:57 Blood Culture - Preliminary Blood NEGATIVE TO DATE 01/29/21 21:02 Blood Culture - Preliminary Blood NEGATIVE TO DATE A&P Assessment and plan (1) Fall: Status: Acute Qualifiers: Encounter type: initial encounter Qualified Code(s): W19.XXXA - Unspecified fall, initial encounter (2) Urinary tract infection: Status: Acute Qualifiers: Hematuria presence: without hematuria Urinary tract infection type: acute cystitis Qualified Code(s): N30.00 - Acute cystitis without hematuria (3) Atrial fibrillation: Status: Acute Additional A&P Information Atrial fibrillation with rapid ventricular rate - Started on metoprolol 25 mg PO BID - Propranolol was discontinued. - Asa for cva prevention due to fall risk - Per cardiology office note -refused full OAC - Monitor on tele Recurrent falls - Etiology unclear - Will r/o CV cause - ECHO - pEF, no stuctural abnormality - Possibly due to weakness from infectious process - Fall precautions - Cardiac monitoring - May consider loop recorder - PT/OT consultation - Low suspecion of seizure - Check orthostatic vitals in am - May consider brain MRI Urinary tract infection - Ua showed positive nitrite with >100 WBC, bacteria - On rocephin 1gIV daily - Follow up on culture - Continue for now Hypertension - Meds as above Hyperlipidemia - Lipitor 40 mg PO daily - Aldactone 25 mg po daily DVT ppx - Lovenox 40 mg Sq daily Disposition - PT/OT consult, Patient would likely benifit from SNF Attestations Medical Necessity Statement*: Require further hospitalization for management of atrial fibrillation with rapid ventricular response and workup of recurrent falls and possible placement Time Spent in Patient Care: Greater than 35 minutes (>than 50% of time spent in counselling and/or direct pt care on unit) . Coding Level of Care Code Acute Web Content Specialist for Chg Fwd Diagnoses Fall W19.XXXA Encounter type: initial encounter Urinary tract infection N30.00 Hematuria presence: without hematuria Urinary tract infection type: acute cystitis Atrial fibrillation I48.91
[2021-01-31] MEDS: metoprolol tartrate 25 mg Tablet PO (16:13)
[2021-01-31] MEDS: cefTRIAXone 1,000 MG in sodium chloride 0.9% (plus) 50 ML 100 MG IV (16:52)
[2021-01-31] MEDS: nystatin powder 15 gm Btl 1 APPLIC TOPICAL (18:23)
[2021-01-31] MEDS: atorvastatin 40 mg Tablet PO (21:02)
[2021-01-31] MEDS: enoxaparin 40 mg/0.4 mL Syringe SUBCUT (22:13)
[2021-02-01] VITALS (10 sets, daily range): BP systolic 121–154; BP diastolic 70–93; PULSE 65–93; RESP 16–18; TEMP 36.6–36.9; O2SAT 91–98
[2021-02-01] MEDS: acetaminophen 500 mg Tablet PO ×4 (03:56→20:55)
[2021-02-01 07:11] LABS: Basophils # 0.1 10^3/uL (0.0-0.1); Basophils % 0.7 %; Eosinophils # 0.2 10^3/uL (0.0-0.8); Eosinophils % 1.5 %; Hematocrit 38.9 % (37.0-47.0); Lymphocytes # 2.9 10^3/uL (0.8-4.8); Lymphocytes % 28.2 %; Mean Corpuscular HGB Conc 30.8 g/dL (30.0-36.0); Mean Corpuscular Volume 90.7 fL (81-99); Mean Platelet Volume 13.4 fL (7.4-10.4); Monocytes # 1.4 10^3/uL (0.2-0.9); Neutrophils # 5.59 10^3/uL (1.8-7.7); Neutrophils % 55.4 %; Nucleated Red Blood Cells % 0 %; Platelet Count 265 10^3/cmm (130-400); Red Blood Count 4.29 10^6/uL (4.1-5.3); Red Cell Distribution Width 17.2 % (12.1-15.1); White Blood Count 10.1 10^3/uL (4.0-10.0)
[2021-02-01 07:35] LABS: Procalcitonin 0.09 ng/mL (0-0.5)
[2021-02-01 07:46] LABS: Alanine Aminotransferase 23 U/L (0-33); Albumin Level 3.2 g/dL (3.5-5.2); Alkaline Phosphatase 125 IU/L (35-105); Aspartate Amino Transferase 31 U/L (0-32); Blood Urea Nitrogen 16 mg/dL (8-23); Calcium 9.4 mg/dL (8.5-10.5); Carbon Dioxide 24 mmol/L (22-29); Chloride 102 mmol/L (98-107); Globulin 3.9 g/dL (1.3-4.6); Glucose 85 mg/dL (65-115); Osmolality Calculated 286 mOsm/kg (285-295); Sodium 138 mmol/L (136-145); Total Bilirubin 0.6 mg/dL (0.15-1.2); Total Protein 7.1 g/dL (6.6-8.7)
[2021-02-01 07:56] LABS: Anion Gap 15.8 (5-19); Potassium 3.8 mmol/L (3.5-5.1)
[2021-02-01] MEDS: FUROsemide 40 mg Tablet PO (08:08)
[2021-02-01] MEDS: nystatin powder 15 gm Btl 1 APPLIC TOPICAL ×2 (08:08→17:37)
[2021-02-01] MEDS: aspirin 81 mg EC Tablet PO (08:08)
[2021-02-01] MEDS: topiramate 25 mg Tablet PO (08:08)
[2021-02-01] MEDS: spironolactone 25 mg Tablet PO (08:08)
[2021-02-01] MEDS: metoprolol tartrate 25 mg Tablet PO ×2 (08:08→20:55)
[2021-02-01] MEDS: pantoprazole DR 40 mg Tablet PO (08:08)
[2021-02-01] MEDS: clopidogrel 75 mg Tablet PO (08:09)
--- NOTE | 2021-02-01 12:34 | PC.NUTR ---
NUTRITION WEIGHT ASSESSMENT: Ht. 59 inches. Wt.205 pounds. BMI of 41.4 kg/m2 indicates Morbid Obesity.
[2021-02-01] MEDS: cefTRIAXone 1,000 MG in sodium chloride 0.9% (plus) 50 ML 100 MG IV (16:18)
--- NOTE | 2021-02-01 20:51 | PM.PN ---
Subjective Subjective: Interval history: Discussed with her and her sister regarding her condition, assessment by physical therapy. She states has been having some aches and pains in the left side of her chest when moving, coughing. Has been having some intermittent cough. Otherwise appears to be working with PT with standby assist, but requiring some assistance here and there. At home lives with her elderly sister. States to me that her sister herself has a caregiver come in about 3 hours a day. Vitals/I&O/Wt Last Vital Signs Temp 98.4 F 02/01/21 19:39 Pulse 91 02/01/21 19:39 Resp 17 02/01/21 19:39 BP 128/71 02/01/21 19:39 Pulse Ox 91 02/01/21 19:39 02/01/21 02/01/21 02/01/21 06:59 14:59 22:59 Intake Total 340 / 340 290 / 630 Output Total 150 / 1050 250 / 250 225 / 475 Balance -150 / -580 90 / 90 65 / 155 Physical Exam Const: COMMON NORMALS: no acute distress GENERAL APPEARANCE: frail appearing NUTRITIONAL APPEARANCE: obese HENMT: COMMON NORMALS: oropharynx normal Neck/C-Spine: COMMON NORMALS: no JVD Resp: COMMON NORMALS: normal respiratory effort and clear to auscultation bilaterally AUSCULTATION: clear to auscultation bilaterally Cardio: COMMON NORMALS: no JVD, regular rhythm, S1 normal heart sound present, S2 normal heart sound present and No murmurs present (Cardio) RHYTHM: regular rhythm HEART SOUNDS: S1 normal heart sound present and S2 normal heart sound present GI: COMMON NORMALS: Normal to inspection, nondistended, normoactive bowel sounds present, Soft to palpation and non-tender PALPATION: Yes Soft to palpation Extremity: COMMON NORMALS: no joint enlargement and no pedal edema Neuro: COMMON NORMALS: moves all extremities Data : 02/01/21 05:59 02/01/21 05:59 Micro: Microbiology 01/29/21 19:15 Urine Culture - Final Urine,Clean Catch Escherichia coli A&P Assessment and plan (1) Fall: Overall she has been doing fairly well. Standby assist working with PT, however, occasionally needing some assistance. Discussed with her sister who is elderly, living with her, and appears she herself is getting caregiver coming in 3 hours a day. However, given she only requires minimal assistance overall may still be able to return home. Will request for home health on discharge. She reports was having difficulty standing/bending her right knee and appears this may have led to her fall. Currently appears to have no issues bending, no pain with active or passive range of motion. Will assess right knee x-ray. If continues to do well, tentative plan to return home with home health tomorrow. No orthostatic blood pressure decrease. Status: Acute Qualifiers: Encounter type: initial encounter Qualified Code(s): W19.XXXA - Unspecified fall, initial encounter (2) Urinary tract infection: Continue Rocephin Status: Acute Qualifiers: Hematuria presence: without hematuria Urinary tract infection type: acute cystitis Qualified Code(s): N30.00 - Acute cystitis without hematuria (3) Atrial fibrillation: Continue metoprolol, aspirin without anticoagulation due to fall risk. Status: Acute Additional A&P Information Hypertension: Continue spironolactone, Lasix, metoprolol Hyperlipidemia - Lipitor 40 mg PO daily DVT ppx - Lovenox 40 mg Sq daily Disposition - PT/OT consult, if continues to do well, and additional support can be arranged at home, likely may still be able to return home as per her and her sister preference, otherwise may need to revisit discussion regarding assisted facility placement Attestations Medical Necessity Statement*: Continue admission for assessment management of recurrent falls, treatment of UTI, assessment of right knee prosthesis, disposition planning and arrangements. Coding Level of Care Code Acute Minibus Driver for Rogelio Sultana Diagnoses Fall W19.XXXA Encounter type: initial encounter Urinary tract infection N30.00 Hematuria presence: without hematuria Urinary tract infection type: acute cystitis Atrial fibrillation I48.91
[2021-02-01] MEDS: atorvastatin 40 mg Tablet PO (20:55)
--- NOTE | 2021-02-01 20:57 | XRR_ITS ---
PROCEDURE INFORMATION: Exam: XR Right Knee Exam date and time: 02/01/2021 8:59 PM Age: 70 years old Clinical indication: Pain and injury or trauma; Fall; Blunt trauma; Knee; Right; Prior surgery; Additional info: Difficulty standing up, fall pre-admit TECHNIQUE: Imaging protocol: XR Right knee. Views: 3 views. COMPARISON: [facility] Knee RIGHT 3 views 11/16/2018 11:04 AM FINDINGS: Bones/joints: Are there are total knee arthroplasty changes. There is no evidence of fracture. There is a small knee joint effusion. Soft tissues: Normal. XR/XR knee RT 3V* [id number] IMPRESSION: No acute abnormality.
[2021-02-01] MEDS: enoxaparin 40 mg/0.4 mL Syringe SUBCUT (22:36)
[2021-02-02] VITALS (7 sets, daily range): BP systolic 101–137; BP diastolic 69–87; PULSE 72–115; RESP 16–18; TEMP 36.4–36.6; O2SAT 97–98
[2021-02-02] MEDS: acetaminophen 500 mg Tablet PO ×2 (02:21→09:29)
--- NOTE | 2021-02-02 06:00 | XRR_ITS ---
PROCEDURE INFORMATION: Exam: XR Chest Exam date and time: 02/02/2021 6:36 AM Age: 70 years old Clinical indication: Other: Hypoxia; Patient HX: No chest complaints per PT TECHNIQUE: Imaging protocol: XR of the chest. Views: 1 view. COMPARISON: CR XR chest 1V portable [id number] 01/29/2021 6:51 PM FINDINGS: Tubes, catheters and devices: Surgical clips project over the GE junction. Lungs: Unremarkable. No consolidation. Pleural spaces: Unremarkable. No pleural effusion. No pneumothorax. Heart/Mediastinum: Unremarkable. No cardiomegaly. Bones/joints: There are degenerative changes about the acromioclavicular and glenohumeral joints. XR/XR chest 1V portable [id number] IMPRESSION: No acute abnormality.
[2021-02-02 06:20] LABS: Basophils # 0.1 10^3/uL (0.0-0.1); Basophils % 0.5 %; Eosinophils # 0.2 10^3/uL (0.0-0.8); Hematocrit 38.2 % (37.0-47.0); Hemoglobin 12.2 g/dL (11.5-15.3); Lymphocytes # 2.7 10^3/uL (0.8-4.8); Lymphocytes % 25.9 %; Mean Corpuscular HGB Conc 31.9 g/dL (30.0-36.0); Mean Corpuscular Hemoglobin 27.9 pg (28.0-34.0); Mean Corpuscular Volume 87.4 fL (81-99); Mean Platelet Volume 13.5 fL (7.4-10.4); Monocytes # 1.3 10^3/uL (0.2-0.9); Monocytes % 12.7 %; Neutrophils # 6.22 10^3/uL (1.8-7.7); Neutrophils % 58.6 %; Nucleated Red Blood Cells % 0 %; Platelet Count 273 10^3/cmm (130-400); Red Blood Count 4.37 10^6/uL (4.1-5.3); Red Cell Distribution Width 17.1 % (12.1-15.1); White Blood Count 10.6 10^3/uL (4.0-10.0)
[2021-02-02 06:33] LABS: Alanine Aminotransferase 33 U/L (0-33); Albumin Level 3.6 g/dL (3.5-5.2); Alkaline Phosphatase 145 IU/L (35-105); Anion Gap 15.2 (5-19); Aspartate Amino Transferase 45 U/L (0-32); Blood Urea Nitrogen 18 mg/dL (8-23); Calcium 9.5 mg/dL (8.5-10.5); Carbon Dioxide 27 mmol/L (22-29); Chloride 99 mmol/L (98-107); Globulin 3.7 g/dL (1.3-4.6); Glucose 85 mg/dL (65-115); Osmolality Calculated 287 mOsm/kg (285-295); Potassium 3.2 mmol/L (3.5-5.1); Sodium 138 mmol/L (136-145); Total Bilirubin 0.6 mg/dL (0.15-1.2); Total Protein 7.3 g/dL (6.6-8.7)
[2021-02-02] MEDS: spironolactone 25 mg Tablet PO (09:29)
[2021-02-02] MEDS: clopidogrel 75 mg Tablet PO (09:29)
[2021-02-02] MEDS: topiramate 25 mg Tablet PO (09:29)
[2021-02-02] MEDS: metoprolol tartrate 25 mg Tablet PO (09:29)
[2021-02-02] MEDS: pantoprazole DR 40 mg Tablet PO (09:30)
[2021-02-02] MEDS: potassium chloride ER 10 mEq Tablet PO (09:30)
[2021-02-02] MEDS: FUROsemide 40 mg Tablet PO (09:30)
[2021-02-02] MEDS: aspirin 81 mg EC Tablet PO (09:30)
--- NOTE | 2021-02-02 10:29 | PC.SOCIAL ---
Pg 2 IMM Explained to pt Pg 2 IMM. No questions voiced. Provided pt a copy. Signed, dated, & timed a copy & placed in chart.
--- NOTE | 2021-02-02 12:07 | PC.NURSE ---
pt verbalizes understanding of dischage instructions, home medications, follow up appointments, fall prevention strategies. all questions regarding discharge answered. pt called family for a ride, and is ready once they arrive.
--- NOTE | 2021-02-02 12:14 | P.DS_ITS ---
Discharge Providers Date of Admission: 01/29/21 21:35 Date of Discharge: February 02, 2021 Attending Provider at Admission: Sergio Badillo MD Attending Provider at Discharge: Mario Kerr Primary Care Provider: Raul Schaeffer MD Diagnoses at Discharge Discharge Diagnosis (1) Fall: Status: Acute Qualifiers: Encounter type: initial encounter Qualified Code(s): W19.XXXA - Unspecified fall, initial encounter (2) Urinary tract infection: Status: Acute Qualifiers: Hematuria presence: without hematuria Urinary tract infection type: acute cystitis Qualified Code(s): N30.00 - Acute cystitis without hematuria (3) Atrial fibrillation: Status: Acute Reason for Visit Reason for Visit: GENERALIZED WEAKNESS Hospital Course Hospital Course Pleasant 70-year-old lady with CAD, status post stent placement on 03/11, recurrent falls, presyncope, prior Holter monitoring with finding of atrial fibrillation, so far has not been a candidate for anticoagulation due to recurrent falls, was admitted after sustaining a fall, with generalized weakness, tripped over her walker at home, and hit her chest and neck on the walker sustaining bruising. On presentation noted to have urinary tract infection for which was treated with ceftriaxone, with urine culture subsequently growing pansensitive E. coli. Was assessed by head CT which showed no acute abnormality. Echocardiogram showed EF 55-60%, grade 1 diastolic function, trace MVR, mild TVR, mild pulmonary hypertension. She also reported that she was having difficulty bending her right knee, in which she has history of TKA. On examination this currently appears to be having no trouble with bending, no pain, either at rest or with active or passive range of motion. This was additionally assessed by knee x-ray which was also normal. In case there are any further issues with the right knee, please referral for follow-up with orthopedics. She was previously also having some cough, although chest x-ray and repeat image from today did not show any pneumonia. She is working well with incentive spirometer, and is taking at home with her. Her cough is resolving. She was assessed by orthostatic blood pressures, without finding of orthostatic hypotension. Telemetry monitoring did not reveal any unexpected arrhythmias. She was assessed by physical therapy, and did quite well with standby assist. At home she lives with his sister, although her sister is elderly herself, per discussion of how she is doing with the patient and her sister they both prefer her returning home, although placement to senior care facility was a consideration. She will complete antibiotic course with cefdinir for urinary tract infection, and I anticipate that she should continue to improve in terms of her mobility, however, in case there are additional difficulties going forward, consideration of senior care facility rehabilitation may need to be revisited. In the meantime we are requesting home health for her with physical therapy and nursing assessment. Physical Exam Const: COMMON NORMALS: no acute distress and patient oriented x3 GENERAL APPEARANCE: frail appearing NUTRITIONAL APPEARANCE: obese HENMT: COMMON NORMALS: oropharynx normal Neck/C-Spine: COMMON NORMALS: no JVD Chest: OTHER: Left side chest, neck bruising, starting to turn yellowish- green. No hematoma. Resp: COMMON NORMALS: normal respiratory effort and clear to auscultation bilaterally AUSCULTATION: clear to auscultation bilaterally Cardio: COMMON NORMALS: no JVD, regular rhythm, S1 normal heart sound present, S2 normal heart sound present and No murmurs present (Cardio) RHYTHM: regular rhythm HEART SOUNDS: S1 normal heart sound present and S2 normal heart sound present GI: COMMON NORMALS: Normal to inspection, nondistended, normoactive bowel sounds present, Soft to palpation and non-tender PALPATION: Yes Soft to palpation Extremity: COMMON NORMALS: no joint enlargement and no pedal edema Neuro: COMMON NORMALS: patient oriented x3 and moves all extremities Skin: COMMON NORMALS: no rashes or lesions noted GENERAL SKIN EXAM: no rashes or lesions noted Discharge Data Data Completed and Pending: Completed Studies During Hospitalization Category Date Time Status CT head wo con* [id number] Urgent Cat Scan 01/29/21 18:49 Completed XR chest 1V [place] [id number] Routine Exams 02/02/21 06:00 Completed XR chest 1V [place] [id number] Urgent Exams 01/29/21 18:49 Completed XR knee RT 3V* [id number] Routine Exams 02/01/21 20:57 Completed CV echo complete* [id number] Routine Ultrasound 01/30/21 15:09 Completed Pending at discharge Category Date Time Status Blood Culture Sta t Lab 01/29/21 20:57 Results Complete Blood Co unt w/Auto AM LABS Lab 02/03/21 04:00 Ordered Complete Blood Co unt w/Auto AM LABS Lab 02/04/21 04:00 Ordered Comprehensive Met abolic Panel AM LA BS Lab 02/03/21 04:00 Ordered Comprehensive Met abolic Panel AM VA BS Lab 02/04/21 04:00 Ordered Labs from last 24 hours 02/02/21 02/02/21 05:06 05:06 WBC 10.6 H RBC 4.37 Hgb 12.2 Hct 38.2 MCV 87.4 MCH 27.9 L MCHC 31.9 RDW 17.1 H Plt Count 273 MPV 13.5 H Neut % (Auto) 58.6 Lymph % (Auto) 25.9 [place] % (Auto) 12.7 Eos % (Auto) 2.0 Baso % (Auto) 0.5 Neut # (Auto) 6.22 Lymph # (Auto) 2.7 [place] # (Auto) 1.3 H Eos # (Auto) 0.2 Baso # (Auto) 0.1 Nucleated RBC % (a uto) 0 Nucleated RBCs # 0.0 Sodium 138 Potassium 3.2 L Chloride 99 Carbon Dioxide 27 Anion Gap 15.2 BUN 18 Creatinine 0.7 GFR Calculation Not Reportable Glucose 85 Calculated Osmolal ity 287 Calcium 9.5 Total Bilirubin 0.6 AST 45 H ALT 33 Alkaline Phosphata se 145 H Total Protein 7.3 Albumin 3.6 Globulin 3.7 Vitals: Last Vital Signs Temp 97.8 F 02/02/21 10:47 Pulse 115 H 02/02/21 10:47 Resp 17 02/02/21 10:47 BP 115/87 02/02/21 10:47 Pulse Ox 98 02/02/21 10:47 Discharge Plan Discharge Patient Disposition: Home Health Service Condition: Stable Prescriptions: New metoprolol tartrate 25 mg Tablet 25 mg PO BID@0900,2100 Qty: 60 RF: 0 cefdinir 300 mg capsule 300 mg PO BID 3 Days Qty: 6 RF: 0 Continued spironolactone 25 mg tablet 25 mg PO DAILY@0800 RF: 0 clopidogrel [Plavix] 75 mg tablet 75 mg PO DAILY@0800 RF: 0 furosemide 40 mg tablet 40 mg PO DAILY@0800 RF: 0 pantoprazole 40 mg Tablet,Delayed Release (Dr/Ec) 40 mg PO DAILY@0800 RF: 0 tizanidine 2 mg Tablet 2 mg PO BID PRN (Reason: Muscle Spasm) RF: 0 tramadol 50 mg Tablet 100 mg PO BID PRN (Reason: Pain) RF: 0 atorvastatin 40 mg tablet 40 mg PO DAILY@2000 RF: 0 topiramate 25 mg tablet 25 mg PO DAILY@0800 RF: 0 aspirin 81 mg tablet,delayed release (DR/EC) 81 mg PO DAILY@0800 RF: 0 Milk of Magnesia 400 mg/5 mL Suspension 400 mg PO DAILY@0800 RF: 0 nitroglycerin 0.4 mg tablet, sublingual 0.4 mg sublingual Q5M PRN (Reason: Chest Pain) RF: 0 Discontinued propranolol 20 mg tablet 20 mg PO DAILY@0800 RF: 0 Discharge Orders: Discharge Order (Routine); Ordered 02/02/21 Ordered By: Mario Kerr [place] [facility]) [Outside] Raul Schaeffer MD [Primary Care Provider] - 02/10/21 1:30 pm Discharge Diet: Cardiac Discharge Activity: Increase activity as tolerated and As per PT/OT instructions Patient Instructions: Metoprolol (By mouth), Aspirin (By mouth), Cefdinir (By mouth), Atrial Fibrillation (GEN), Urinary Tract Infection in Women (GEN), Fall Prevention (GEN), Opioid Safety Activity Restrictions/Additional Instructions: Please revisit with primary care doctor with regards to stroke risk with atrial fibrillation. So far it has not been safe to start blood thinners due to risk of fall and bleeding. Please discuss with your primary care doctor whether this may be a possible option in the future to protect from stroke. Monitor your pulse rate at least twice daily at home, record values to bring to your appointment. Please complete antibiotic course for urinary tract infection. Please follow-up with your primary care doctor with regards to your right knee to make sure it continues to work correctly. The x-ray looked okay. If there are any further issues, please discuss with your primary care doctor referral to an radiosonde specialist. Please maintain strict fall precautions at home. Please have your primary care doctor recheck your potassium level at the next visit. Please have your primary care doctor follow-up the alkaline phosphatase level at the next visit as well. Discharge Attestations Time Spent in Discharge Care*: greater than 30 min Quality Metrics Clinical Quality Measures During this hospital stay, did patient experience: None Coding Level of Care Code Acute g DC note Diagnoses Fall W19.XXXA Encounter type: initial encounter Urinary tract infection N30.00 Hematuria presence: without hematuria Urinary tract infection type: acute cystitis Atrial fibrillation I48.91
== END 2021-02-02 12:50 | disposition home health service (06) ==
LOC: ER 20:48 → MEDSURG 22:15
PROVIDERS: Hospitalist; Admitting Provider Internal Medicine; Emergency Provider Emergency Medicine; PCP Family Medicine; Visit Provider Internal Medicine
DX: N30.00 Acute cystitis without hematuria (principal); Z91.81 History of falling; I48.91 Unspecified atrial fibrillation; E78.5 Hyperlipidemia, unspecified; I10 Essential (primary) hypertension; K21.9 Gastro-esophageal reflux disease without esophagitis; I25.10 Atherosclerotic heart disease of native coronary artery without angina pectoris; Z95.5 Presence of coronary angioplasty implant and graft
CPT/HCPCS: 36415; 70450; 71045; 72125; 73030; 73562; 80048; 80053; 81001; 82550; 82803; 83605; 84145; 85025; 85378; 86140; 87040; 87077; 87086; 87186; 93005; 93306; 96361; 96365; 96367; 96372; 96375; 97110; 97116; 97161; 97167; 97530; 97535; 99283; 99285; A6446; G0378; J0696; J1650; J1885; J2270; J7030

== ENCOUNTER 2021-05-22 14:52 | Emergency (ER) | payer OTHER, MEDICAID, SELFPAY ==
[2021-05-22] VITALS (7 sets, daily range): BP systolic 104–135; BP diastolic 68–85; PULSE 67–73; RESP 18–20; TEMP 36.3; O2SAT 94–100; BMI 40.4
--- NOTE | 2021-05-22 17:20 | ECG_ITS ---
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
--- NOTE | 2021-05-22 17:20 | XRR_ITS ---
PROCEDURE INFORMATION: Exam: XR Chest Exam date and time: 05/22/2021 5:20 PM Age: 70 years old Clinical indication: Shortness of breath; Additional info: AMS TECHNIQUE: Imaging protocol: XR of the chest. Views: 1 view. COMPARISON: CR XR chest 1V portable [id number] 02/02/2021 6:45 AM FINDINGS: Lungs: Unremarkable. No consolidation. Pleural spaces: Unremarkable. No pleural effusion. No pneumothorax. Heart/Mediastinum: Unremarkable. No cardiomegaly. Bones/joints: Multiple old right posterior rib fracture deformities. Severe arthritis in the shoulders. Chronic rotator cuff tears are evident. Intraperitoneal space: Multiple surgical clips in the superior left upper quadrant of the abdomen. XR/XR chest 1V portable [id number] IMPRESSION: No acute pulmonary disease.
--- NOTE | 2021-05-22 17:21 | CTR_ITS ---
PROCEDURE INFORMATION: Exam: CT Head Without Contrast Exam date and time: 05/22/2021 5:21 PM Age: 70 years old Clinical indication: Altered mental status/memory loss; Confusion or disorientation; Additional info: AMS TECHNIQUE: Imaging protocol: Computed tomography of the head without contrast. Radiation optimization: All CT scans at this facility use at least one of these dose optimization techniques: automated exposure control; mA and/or kV adjustment per patient size (includes targeted exams where dose is matched to clinical indication); or iterative reconstruction. COMPARISON: CT head wo con* [id number] 01/29/2021 7:42 PM RADIATION DOSE METRICS: Total DLP (mGy-cm): 1251.27 FINDINGS: Brain: There is moderate cerebral atrophy. No hemorrhage. Unremarkable white matter. No mass effect. Cerebral ventricles: No ventriculomegaly. Paranasal sinuses: Diffuse opacification of the left frontal sinus, anterior ethmoid air cells and maxillary sinus. Mastoid air cells: Visualized mastoid air cells are well aerated. Bones/joints: Unremarkable. No acute fracture. Soft tissues: Unremarkable. CT/CT head wo con* [id number] IMPRESSION: 1. Negative for acute intracranial abnormality. 2. Diffuse left-sided paranasal sinus disease. 3. No change from comparison. Radiation Dose CTDIVOL = (mGy): DLP = 1251.27 (mGy-cm)
--- NOTE | 2021-05-22 17:21 | W.ED.AMS ---
HPI - Altered Mental Status General: Chief Complaint: Altered Mental Status Stated Complaint: AMS Time Seen by Provider: 05/22/21 17:15 History of Present Illness: HPI narrative: 70-year-old female was brought in by EMS for concerns of confusion. On arrival to the ER patient was alert and responding appropriately to questions. Patient had taken some tramadol prior to the bout of confusion. On my exam patient was alert and oriented. Patient was responding appropriately to questioning. NIH scale for stroke was 1 due to inability to hold right leg up. Patient states that she has pain in that knee most of the time. Patient has a history of CAD, GERD, hypertension, stent placement, atrial fib, and osteoarthritis to the knee. Review of the history noted that patient had a recent admission to the hospital after a fall and similar confusion. At that time patient was noted to have atrial fib. Patient is not a good candidate for anticoagulation due to her frequent falls. Patient states that she feels fine at this time. Patient appears well. Patient appears in no pain. Review of Systems General: Reports: 10 or more systems reviewed and unremarkable except in HPI and below Musc: Reports: other (Right knee pain) PFSH ED PFSH: Medical History Abnormal stress test Atrial fibrillation Chronic migraine GERD (gastroesophageal reflux disease) HTN (hypertension) Postmenopausal osteoporosis Syncope and collapse Surgical History H/O: hysterectomy Hx of tonsillectomy Post-splenectomy S/P cholecystectomy Family History Other Diabetes Hypertension Social History Smoking and tobacco status: never smoked Alcohol intake: never Physical Exam Const: COMMON NORMALS: no acute distress and patient oriented x3 GENERAL APPEARANCE: cooperative HENMT: COMMON NORMALS: normocephalic and Normal external nose present HEAD & SCALP: normal to inspection and normocephalic NOSE: Normal external nose present MOUTH: Normal oral and palatal mucosa present Eye: GENERAL EYE: appearance normal, both eyes and all related structures Neck/C-Spine: COMMON NORMALS: full ROM Lymph: LYMPHATIC: no lymphadenopathy noted Chest: COMMONS NORMALS: normal inspection of the chest Resp: COMMON NORMALS: normal respiratory effort EFFORT & INSPECTION: Yes able to speak in complete sentences Cardio: COMMON NORMALS: regular rate and regular rhythm RATE: regular rate RHYTHM: regular rhythm GI: COMMON NORMALS: Soft to palpation and non-tender INSPECTION: Yes scar PALPATION: Yes Soft to palpation : COMMON NORMALS: Yes no CVA tenderness BLADDER/KIDNEY EXAM: Yes no CVA tenderness Back/Pelvis: COMMON NORMALS: no CVA tenderness and thoracic and lumbar spine normal to inspection Extremity: COMMON NORMALS: normal to inspection Neuro: COMMON NORMALS: patient oriented x3 and moves all extremities Psych: COMMON NORMALS: mental status grossly normal and cooperative Skin: COMMON NORMALS: no rashes or lesions noted GENERAL SKIN EXAM: no rashes or lesions noted Course Vital Signs: Vital signs: Vital Signs Temperature 97.4 F L 05/22/21 15:10 Pulse Rate 71 05/22/21 19:54 Respiratory Rate 18 05/22/21 19:54 Blood Pressure 105/85 05/22/21 19:54 Pulse Oximetry 95 05/22/21 19:54 MDM - Altered Mental Status MDM Narrative: Medical decision making narrative: Patient was referred to the ER by her sister when she fell asleep while watching TV. This was abnormal for the patient. When patient awoke she was slightly confused and her sister called EMS. On exam in the emergency department patient was alert and oriented responding appropriately to questions. Patient appeared well. Respirations were even lungs are clear to auscultation. Abdomen is soft nontender. Bowel sounds are present. Differential diagnosis includes but not limited to ACS, sepsis, infection of unknown site, pneumonia, TIA. CT of the head was normal. Chest x-ray was normal. Laboratory values were normal. Urinalysis had positive nitrates. I believe the patient probably has a urinary tract infection which may be making her more sleepy and may be confused at times. We will start her on Macrobid 1 capsule twice a day for 7 days. Reviewed this with patient who agreed to plan patient was discharged home. Lab Data: Labs: Lab Results 05/22/21 05/22/21 05/22/21 Range/Units 18:15 18:15 18:15 WBC 8.0 (4.0-10.0) 10^3/ uL RBC 4.16 (4.1-5.3) 10^6/u L Hgb 11.3 L (11.5-15.3) g/dL Hct 38.2 (37.0-47.0) % MCV 91.8 (81-99) fL MCH 27.2 L (28.0-34.0) pg MCHC 29.6 L (30.0-36.0) g/dL RDW 18.7 H (12.1-15.1) % Plt Count 264 (130-400) 10^3/c mm MPV 12.9 H (7.4-10.4) fL Neut % (Auto) 50.9 % Lymph % (Auto) 33.2 % [place] % (Auto) 11.3 % Eos % (Auto) 3.5 % Baso % (Auto) 1.0 % Neut # (Auto) 4.08 (1.8-7.7) 10^3/u L Lymph # (Auto) 2.7 (0.8-4.8) 10^3/u L [place] # (Auto) 0.9 (0.2-0.9) 10^3/u L Eos # (Auto) 0.3 (0.0-0.8) 10^3/u L Baso # (Auto) 0.1 (0.0-0.1) 10^3/u L Nucleated RBC % (a uto) 0 % Nucleated RBCs # 0.0 /100WBC Sodium 136 (136-145) mmol/L Potassium 4.9 (3.5-5.1) mmol/L Chloride 106 (98-107) mmol/L Carbon Dioxide 22 (22-29) mmol/L Anion Gap 12.9 (5-19) BUN 14 (8-23) mg/dL Creatinine 0.8 (0.5-0.9) mg/dL GFR Calculation Not Reportable Glucose 86 (65-115) mg/dL Calculated Osmolal ity 282 L (285-295) mOsm/k g Calcium 9.1 (8.5-10.5) mg/dL Total Bilirubin 0.3 (0.15-1.2) mg/dL AST 18 (0-32) U/L ALT 12 (0-33) U/L Alkaline Phosphata se 127 H (35-105) IU/L Troponin T Baselin e 13 H (0-10) ng/L Troponin T 120 Min [place] Troponin T Total Protein 6.4 L (6.6-8.7) g/dL Albumin 3.1 L (3.5-5.2) g/dL Globulin 3.3 (1.3-4.6) g/dL Urine Color (Yellow) Urine Appearance (CLEAR) Urine pH (5-7) Ur Specific Gravit y (1.005-1.030) Urine Protein (Negative) Urine Glucose (UA) (Normal) Urine Ketones (Negative) Urine Blood (Negative) Urine Nitrate (Negative) Urine Bilirubin (Negative) Urine Urobilinogen (Negative) mg/dL Ur Leukocyte [place] (Negative) Amorphous Sediment 05/22/21 05/22/21 Range/Units 20:15 21:00 WBC (4.0-10.0) 10^3/ uL RBC (4.1-5.3) 10^6/u L Hgb (11.5-15.3) g/dL Hct (37.0-47.0) % MCV (81-99) fL MCH (28.0-34.0) pg MCHC (30.0-36.0) g/dL RDW (12.1-15.1) % Plt Count (130-400) 10^3/c mm MPV (7.4-10.4) fL Neut % (Auto) % Lymph % (Auto) % [place] % (Auto) % Eos % (Auto) % Baso % (Auto) % Neut # (Auto) (1.8-7.7) 10^3/u L Lymph # (Auto) (0.8-4.8) 10^3/u L [place] # (Auto) (0.2-0.9) 10^3/u L Eos # (Auto) (0.0-0.8) 10^3/u L Baso # (Auto) (0.0-0.1) 10^3/u L Nucleated RBC % (a uto) % Nucleated RBCs # /100WBC Sodium (136-145) mmol/L Potassium (3.5-5.1) mmol/L Chloride (98-107) mmol/L Carbon Dioxide (22-29) mmol/L Anion Gap (5-19) BUN (8-23) mg/dL Creatinine (0.5-0.9) mg/dL GFR Calculation Glucose (65-115) mg/dL Calculated Osmolal ity (285-295) mOsm/k g Calcium (8.5-10.5) mg/dL Total Bilirubin (0.15-1.2) mg/dL AST (0-32) U/L ALT (0-33) U/L Alkaline Phosphata se (35-105) IU/L Troponin T Baselin e (0-10) ng/L Troponin T 120 Min [place] Cancelled [place] Troponin T Cancelled Total Protein (6.6-8.7) g/dL Albumin (3.5-5.2) g/dL Globulin (1.3-4.6) g/dL Urine Color Yellow (Yellow) Urine Appearance Sl hazy (CLEAR) Urine pH 6 (5-7) Ur Specific Gravit y 1.020 (1.005-1.030) Urine Protein Neg (Negative) Urine Glucose (UA) Norm (Normal) Urine Ketones Negative (Negative) Urine Blood Neg (Negative) Urine Nitrate Positive H (Negative) Urine Bilirubin Neg (Negative) Urine Urobilinogen Norm (Negative) mg/dL Ur Leukocyte [place] Negative (Negative) Amorphous Sediment Not Reportable EKG Data^: EKG 1: Attestation: I personally reviewed and interpreted this EKG as follows: (175, EKG shows atrial fib with a slightly irregular rhythm at [address] elevation or ectopy is noted. No significant change from prior exam.) Discharge Plan Discharge Patient Disposition: Home Clinical Impression: Acute UTI (urinary tract infection) Condition: Stable Prescriptions: New Macrobid 100 mg capsule 100 mg PO BID 7 Days Qty: 14 RF: 0 No Action spironolactone 25 mg tablet 25 mg PO DAILY@0800 RF: 0 clopidogrel [Plavix] 75 mg tablet 75 mg PO DAILY@0800 RF: 0 furosemide 40 mg tablet 40 mg PO DAILY PRN (Reason: Edema) RF: 0 pantoprazole 40 mg Tablet,Delayed Release (Dr/Ec) 40 mg PO DAILY@0800 RF: 0 tizanidine 2 mg Tablet 2 mg PO BEDTIME RF: 0 tramadol 50 mg Tablet 100 mg PO BID PRN (Reason: Pain) RF: 0 atorvastatin 40 mg tablet 40 mg PO DAILY@1999 RF: 0 topiramate 25 mg tablet 25 mg PO BID RF: 0 aspirin 81 mg tablet,delayed release (DR/EC) 81 mg PO DAILY@0800 RF: 0 magnesium hydroxide [Milk of Magnesia] 400 mg/5 mL Suspension 30 ml PO PRN RF: 0 nitroglycerin 0.4 mg tablet, sublingual 0.4 mg sublingual Q5M PRN (Reason: Chest Pain) RF: 0 Stool Softener 100 mg Capsule 300 mg PO PRN RF: 0 propranolol 20 mg tablet 20 mg PO BID RF: 0 Flonase 50 mcg/actuation [place],Suspension 1 - 2 spray INTRANASAL DAILY PRN (Reason: Allergy Symptoms) RF: 0 metoprolol tartrate 25 mg tablet 12.5 mg PO BID RF: 0 Discharge Orders: Discharge ED (Routine); Ordered 05/22/21 Ordered By: Gustabo Kuhn Referrals: Raul Schaeffer MD [Primary Care Provider] - Discharge Diet: Usual diet Discharge Activity: Increase activity as tolerated Patient Instructions: Urinary Tract Infection in Women (ED), Opioid Safety Activity Restrictions/Additional Instructions: Drink plenty of water. Take your antibiotic twice a day for the next 7 days. Follow-up with primary care in 1 week for recheck. Return to the ER for new concerns. Coding Level of Care Code ED Postal Mail Carrier for Rogelio 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
--- NOTE | 2021-05-22 18:16 | PC.PHAR ---
PT STATES HER SISTER HILL TAKES CARE OF HER MEDICATIONS-PTS SISTER HILL [phone] STATES THE MEDICATIONS ENTERED ARE MEDICATIONS THE PT TAKES-NOTES ARE MADE IN THE PHARMACY COMMENTS
[2021-05-22 18:32] LABS: Basophils # 0.1 10^3/uL (0.0-0.1); Eosinophils # 0.3 10^3/uL (0.0-0.8); Eosinophils % 3.5 %; Hematocrit 38.2 % (37.0-47.0); Hemoglobin 11.3 g/dL (11.5-15.3); Lymphocytes # 2.7 10^3/uL (0.8-4.8); Lymphocytes % 33.2 %; Mean Corpuscular HGB Conc 29.6 g/dL (30.0-36.0); Mean Corpuscular Hemoglobin 27.2 pg (28.0-34.0); Mean Corpuscular Volume 91.8 fL (81-99); Mean Platelet Volume 12.9 fL (7.4-10.4); Monocytes # 0.9 10^3/uL (0.2-0.9); Monocytes % 11.3 %; Neutrophils # 4.08 10^3/uL (1.8-7.7); Neutrophils % 50.9 %; Nucleated Red Blood Cells % 0 %; Platelet Count 264 10^3/cmm (130-400); Red Blood Count 4.16 10^6/uL (4.1-5.3); Red Cell Distribution Width 18.7 % (12.1-15.1)
[2021-05-22 19:33] LABS: Alanine Aminotransferase 12 U/L (0-33); Albumin Level 3.1 g/dL (3.5-5.2); Alkaline Phosphatase 127 IU/L (35-105); Aspartate Amino Transferase 18 U/L (0-32); Blood Urea Nitrogen 14 mg/dL (8-23); Calcium 9.1 mg/dL (8.5-10.5); Carbon Dioxide 22 mmol/L (22-29); Chloride 106 mmol/L (98-107); Globulin 3.3 g/dL (1.3-4.6); Glucose 86 mg/dL (65-115); Osmolality Calculated 282 mOsm/kg (285-295); Sodium 136 mmol/L (136-145); Total Bilirubin 0.3 mg/dL (0.15-1.2); Total Protein 6.4 g/dL (6.6-8.7)
[2021-05-22 19:34] LABS: Troponin(5th) Baseline 13 ng/L (0-10)
[2021-05-22 19:38] LABS: Anion Gap 12.9 (5-19); Potassium 4.9 mmol/L (3.5-5.1)
[2021-05-22 21:48] LABS: Add Urine Microscopic? YES; Bilirubin Urine Neg (Negative); Blood Urine Neg (Negative); Glucose Urine UA Norm (Normal); Ketones Urine Negative (Negative); Leukocyte Esterase Urine Negative (Negative); Nitrate Urine Positive (Negative); Protein Urine Neg (Negative); Urine Appearance SL Hazy (CLEAR); Urine Color Yellow (Yellow); Urobilinogen Urine Norm (Negative); pH Urine 6 (5-7)
[2021-05-22 22:06] LABS: Add Urine Culture? Yes; Bacteria Urine 4+ /hpf; RBC Urine 0-4 /hpf (0-2); Squamous Epithelial Cell Urine 0-4 /hpf (0-5); WBC Urine 0-4 /hpf (0-5)
[2021-05-22] MEDS: nitrofurantoin SR (BID) 100 mg Capsule PO (22:28)
[2021-05-23] VITALS: BP 113/82; PULSE 72; RESP 18; O2SAT 100
== END 2021-05-23 00:36 | disposition home or self-care (01) ==
PROVIDERS: Emergency Provider Nurse Practitioner Family; PCP Family Medicine
DX: N39.0 Urinary tract infection, site not specified (principal); Z79.02 Long term (current) use of antithrombotics/antiplatelets; Z79.82 Long term (current) use of aspirin; I10 Essential (primary) hypertension
CPT/HCPCS: 36415; 70450; 71045; 80053; 81001; 84484; 85025; 87077; 87086; 87186; 93005; 99284

== ENCOUNTER 2021-10-28 09:06 | Inpatient (IN) | payer MEDICARE, MEDICAID, SELFPAY ==
[2021-10-28] VITALS (9 sets, daily range): BP systolic 134–155; BP diastolic 76–90; PULSE 87–120; RESP 15–24; TEMP 35.9–38.1; O2SAT 94–100; BMI 46.4
--- NOTE | 2021-10-28 | CT_ITS ---
WS: [id number] CT ANGIOGRAM CEREBRAL AND CAROTID ARTERIES HISTORY: STROKE LIKE SYMPTOMS, WEAKNESS TECHNIQUE: CT angiogram is performed of the carotid and cerebral arteries. During arterial injection imaging is obtained from the skull vertex to the aortic arch in 1.25 mm imaging. Coronal and sagittal reformats are submitted. Additional multi planar reformats of the carotid and cerebral arteries are submitted, MIP imaging also reviewed. NASCET criteria utilized. [facility] CT [email or web address] at least one of these dose optimization techniques: automated exposure control; mA and/or kV adjust ment per patient size (includes targeted exams where dose is matched to clinical indication); or iter ative reconstruction. CONTRAST: Visipaque 320; 95 mL IV. DLP: 1875.78 mGy.cm COMPARISON: None available. Carotid Angiogram: Right carotid: Common carotid artery: Arises normally from the innominate artery. No significant plaque or stenosis. Internal carotid artery: No plaque or stenosis. External carotid artery: Patent. Left carotid: Common carotid artery: Arises normally from the aorta. No significant plaque or stenosis. Internal carotid artery: Very small amount of calcium antral thickening at the bifurcation. Stenosis just under 50%. External carotid artery: Patent. Right vertebral artery: Unremarkable. Left vertebral artery: Unremarkable. Arises normally from the subclavian artery. Subclavian arteries: No stenosis or significant abnormality. Upper thorax: Normal. Thyroid gland: Mixed nodule in the superior LEFT thyroid measures 2.4 x 2.1 cm. There are smaller add itional nodules in the inferior LEFT thyroid. Osseous structures: Moderate spondylosis in the cervical spine. No fracture. CEREBRAL ANGIOGRAM: Intracranial vertebral arteries: Normal with no significant atherosclerosis. Basilar artery: No significant stenosis or occlusion. No aneurysm. Intracranial Internal carotid arteries: Demonstrates no significant stenosis or plaque. Middle cerebral arteries: Abrupt termination of the distal LEFT M1 segment with a thrombus. No defini te increased density on the noncontrast CT. There are a few small distal collateral vessels. On the p ostcontrast imaging there does appear to be some sulcal effacement and edema developing in the LEFT M CA territory. Anterior cerebral arteries and ACOM: Normal. Posterior cerebral arteries and PCOM's: Normal. Dural venous sinuses are normally enhancing. Mastoid air cells: Normal. Paranasal sinuses: Increased opacification of the LEFT maxillary sinus with extension into the ethmoi d air cells. Calvarium: Negative. CT/CT angio headneck* [id number] IMPRESSION: 1. No significant cervical carotid stenosis or atherosclerosis. Small amount o f plaque in the LEFT proximal ICA. 2. Complete occlusion with thrombus involving the distal LEFT M1 segment. Smal l amount of edema within the LEFT MCA territory noted on the postcontrast imagi ng. Notified Christopher Michael DO at 10/28/2021 11:15 AM.
--- NOTE | 2021-10-28 09:19 | ECG_ITS ---
[facility] Test Date: 2021-10-28 Pat Name: Jennifer Sahu Department: Room: Gender: Female [employer]: : 1950 Requested By: Christopher Simpson Order Number: [id number] Jerardo MD: Gena West M.D. 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 [email or web address]eren[facility] hospitalSpacenetmi[facility] hospital.[employer]/store/NU/[id number] f
--- NOTE | 2021-10-28 09:19 | CT_ITS ---
WS: [id number] CT HEAD NONCONTRAST HISTORY: Symptoms of Acute Stroke TECHNIQUE: Contiguous axial imaging performed through the brain in 2.5 mm imaging. Bone and soft tiss ue windows. Sagittal and coronal reformats reviewed. All CT scans at [facility] use at least one of these dose optimization techniques: automated exposure control; mA and/or kV adjustment per pa tient size (includes targeted exams where dose is matched to clinical indication); or iterative recon struction. DLP: 920.61 mGy.cm COMPARISON: 05/22/2021 No acute intracranial hemorrhage, midline shift or mass effect. Moderate bilateral atrophy. Extra-axial spaces are prominent on the basis of atrophy. Moderate chroni c microvascular ischemic disease. No acute sulcal effacement. No increased density within the cerebr al arteries. Ventricles: Normal size with no hydrocephalus. Paranasal sinuses: Marked increased opacification within the LEFT maxillary sinus. Similar to the jose l or study. Increased soft tissue extends into the ethmoid air cells. Mastoid air cells: Well pneumatized. Calvarium and scalp: Skull is intact with no soft tissue edema or swelling. CT/CT head wo con* [id number] IMPRESSION: 1. No acute intracranial hemorrhage or edema. 2. Moderate atrophy and chronic ischemic disease. No acute area of sulcal effa cement.
--- NOTE | 2021-10-28 09:19 | XR_ITS ---
WS: [id number] Portable AP upright chest, 10/28/2021 Clinical Data: dyspnea Comparison: Portable chest, 05/22/2021. Findings: The heart is slightly enlarged. No nodules, masses or effusions are seen. The pulmonary vas cularity is not increased. No pneumonia or pneumothorax is present. The aortic arch and descending th oracic aorta show tortuosity. There are old posterior right fourth and fifth rib fractures. There are clips in the left upper quadrant from surgery XR/XR chest 1V portable [id number] Impression: 1. Cardiomegaly. 2. Atherosclerosis.
--- NOTE | 2021-10-28 09:19 | W.ED.NEUROSD ---
HPI - Neuro Symptoms/Deficit General: Chief Complaint: Neuro Symptoms/Deficit Stated Complaint: STROKE LIKE SYMPTOMS Time Seen by Provider: 10/28/21 09:07 History of Present Illness: HPI Narrative: 71-year-old female brought in by EMS. Last known well was approximately 2130 on 10/27/2021. She is a resident of some sort of assisted living home. Her last known well however was based off her roommate hearing her move around in the bathroom. She is found slumped over on the toilet this morning. She is nonresponsive on arrival here. 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 Cannot get her to verbalize anything history reviewed from the chart. Onset (ago): hour(s) Time: 09:06 Last Observed Normal: 21:30 Timing confirmed by: caregiver Location: speech, right face, right arm and right leg Severity: severe Quality: weak Relieving factors: none Exacerbating factors: none Context: found down On Anticoagulants: No Review of Systems General: Reports: ROS unobtainable due to medical condition PFSH ED PFSH: Medical History Abnormal stress test Atrial fibrillation Chronic migraine GERD (gastroesophageal reflux disease) HTN (hypertension) Postmenopausal osteoporosis Syncope and collapse Surgical History H/O: hysterectomy Hx of tonsillectomy Post-splenectomy S/P cholecystectomy Family History Other Diabetes Hypertension Social History Smoking and tobacco status: former smoker Alcohol intake: never NIH stroke score NIHSS: Level Of Consciousness - 1a: 2 Level Of Consciousness Questions - 1b: Neither Correct Level Of Consciousness Commands - 1c: Neither Correct Best Gaze - 2: Forced Deviation Visual Sahu - 3: Partial Hemianopia Facial Palsy - 4: Partial Paralysis Motor Arm Right - 5: No Effort Against [place] Motor Arm Left - 5: No Drift Motor Leg Right - 6: No Effort Against [place] Motor Leg Left - 6: No Drift Limb Ataxia - 7: Present In Two Limbs Sensory - 8: Mild To Moderate Loss Best Language - 9: Mute; Global Aphasia Dysarthia - 10: Severe Dysarthia Extinction And Inattention - 11: 2 Score: Total Score: 27 Physical Exam Const: ORIENTATION/CONSCIOUSNESS: Yes awake HENMT: COMMON NORMALS: normocephalic, atraumatic and hearing grossly normal bilaterally HEAD & SCALP: normocephalic and atraumatic Neck/C-Spine: COMMON NORMALS: no JVD Resp: COMMON NORMALS: normal respiratory effort, No retractions, No use of accessory muscles and clear to auscultation bilaterally AUSCULTATION: clear to auscultation bilaterally Cardio: COMMON NORMALS: no JVD, regular rate and No murmurs present (Cardio) RATE: regular rate RHYTHM: abnormal rhythm irregularly irregular GI: COMMON NORMALS: Soft to palpation and No hepatosplenomegaly present AUSCULTATION: Yes normoactive bowel sounds PALPATION: Yes Soft to palpation, No Tenderness to palpation present (GI), No Guarding due to palpation present (GI) and Yes No hepatosplenomegaly present Extremity: COMMON NORMALS: normal to inspection, capillary refill normal, no clubbing, cyanosis or edema, no calf tenderness and no pedal edema Course Vital Signs: Vital signs: Vital Signs Temperature 96.6 F L 10/28/21 09:10 Pulse Rate 107 H 10/28/21 13:14 Respiratory Rate 15 10/28/21 13:14 Blood Pressure 145/90 10/28/21 13:14 Pulse Oximetry 100 10/28/21 13:14 MDM - Neuro Symptoms/Deficit MDM Narrative: Medical decision making narrative: Patient has acute embolic stroke I reviewed the CTA with Dr. Torres and then with on-call neurologist at [facility]. Neurology at [facility] in conjunction with her interventional radiology did not feel that this was amenable to embolectomy. Since that is the case patient will be admitted here for new acute stroke for further evaluation discussed with Dr. Sands orders written. Lab Data: Labs: Lab Results 10/28/21 10/28/21 10/28/21 09:30 09:30 09:30 WBC 9.9 10^3/uL 10^3/ uL (4.0-10.0) RBC 4.26 10^6/uL 10^6 /uL (4.1-5.3) Hgb 11.3 g/dL L g/dL (11.5-15.3) Hct 35.2 % L % (37.0-47.0) MCV 82.6 fl fl (81-99) MCH 26.5 pg L pg (28.0-34.0) MCHC 32.1 g/dL g/dL (30.0-36.0) RDW 17.7 % H % (12.1-15.1) Plt Count 279 10^3/cmm 10^3 /cmm (130-400) MPV 12.8 fL H fL (7.4-10.4) Neut % (Auto) 70.7 % % Lymph % (Auto) 16.3 % % [place] % (Auto) 9.5 % % Eos % (Auto) 2.7 % % Baso % (Auto) 0.6 % % Neut # (Auto) 6.96 10^3/uL 10^3 /uL (1.8-7.7) Lymph # (Auto) 1.6 10^3/uL 10^3/ uL (0.8-4.8) Rapides # (Auto) 0.9 10^3/uL 10^3/ uL (0.2-0.9) Eos # (Auto) 0.3 10^3/uL 10^3/ uL (0.0-0.8) Baso # (Auto) 0.1 10^3/uL 10^3/ uL (0.0-0.1) Nucleated RBC % (a uto) 0 % % Nucleated RBCs # 0.0 /100WBC /100W BC PT 14.30 SECONDS SEC ONDS (12.1-14.9) INR 1.07 (0.8-1.2) APTT 29.2 SECONDS SECO NDS (23.9-36.7) Sodium 137 mmol/L mmol/L (136-145) Potassium 4.7 mmol/L mmol/L (3.5-5.1) Chloride 103 mmol/L mmol/L (98-107) Carbon Dioxide 22 mmol/L mmol/L (22-29) Anion Gap 16.7 (5-19) BUN 16 mg/dL mg/dL (8-23) Creatinine 0.8 mg/dL mg/dL (0.5-0.9) GFR Calculation Not Reportable Glucose 97 mg/dL mg/dL (65-115) Calculated Osmolal ity 285 mOsm/kg mOsm/ kg (285-295) Calcium 9.0 mg/dL mg/dL (8.5-10.5) Total Bilirubin 0.5 mg/dL mg/dL (0.15-1.2) AST 24 U/L U/L (0-32) ALT 22 U/L U/L (0-33) Alkaline Phosphata se 185 IU/L H IU/L (35-105) Total Protein 6.7 g/dL g/dL (6.6-8.7) Albumin 3.4 g/dL L g/dL (3.5-5.2) Globulin 3.3 g/dL g/dL (1.3-4.6) Urine Color Urine Appearance Urine pH Ur Specific Gravit y Urine Protein Urine Glucose (UA) Urine Ketones Urine Blood Urine Nitrate Urine Bilirubin Urine Urobilinogen Ur Leukocyte Jadya ase Urine RBC Urine WBC Ur Squamous Epith Cells Amorphous Sediment Urine Bacteria Urine Opiates Scre en Ur Barbiturates Sc reen Ur Phencyclidine S crn Ur Amphetamines Sc reen U Benzodiazepines Scrn Urine Cocaine Scre en U Marijuana (THC) Screen 10/28/21 10/28/21 10:25 10:25 WBC RBC Hgb Hct MCV MCH MCHC RDW Plt Count MPV Neut % (Auto) Lymph % (Auto) Rapides % (Auto) Eos % (Auto) Baso % (Auto) Neut # (Auto) Lymph # (Auto) Rapides # (Auto) Eos # (Auto) Baso # (Auto) Nucleated RBC % (a uto) Nucleated RBCs # PT INR APTT Sodium Potassium Chloride Carbon Dioxide Anion Gap BUN Creatinine GFR Calculation Glucose Calculated Osmolal ity Calcium Total Bilirubin AST ALT Alkaline Phosphata se Total Protein Albumin Globulin Urine Color Yellow (Yellow) Urine Appearance Sl hazy (CLEAR) Urine pH 7 (5-7) Ur Specific Gravit y 1.015 (1.005-1.030) Urine Protein Neg (Negative) Urine Glucose (UA) Norm (Normal) Urine Ketones Negative (Negative) Urine Blood Neg (Negative) Urine Nitrate Positive H (Negative) Urine Bilirubin Neg (Negative) Urine Urobilinogen Norm mg/dL mg/dL (Negative) Ur Leukocyte Jayda ase Negative (Negative) Urine RBC None /hpf /hpf (0-2) Urine WBC 0-4 /hpf H /hpf (0-5) Ur Squamous Epith Cells 0-4 /hpf H /hpf (0-5) Amorphous Sediment Not Reportable Urine Bacteria 1+ /hpf H /hpf (NONE) Urine Opiates Scre en Negative ng/mL ng /mL (Negative) Ur Barbiturates Sc reen Negative ng/mL ng /mL (Negative) Ur Phencyclidine S crn Negative ng/mL ng /mL (Negative) Ur Amphetamines Sc reen Negative ng/mL ng /mL (Negative) U Benzodiazepines Scrn Negative ng/mL ng /mL (Negative) Urine Cocaine Scre en Negative ng/mL ng /mL (Negative) U Marijuana (THC) Screen Negative ng/mL ng /mL (Negative) Discharge Plan Discharge Patient Disposition: Admitted As Inpatient Clinical Impression: Cerebrovascular accident, CAD (coronary artery disease), HTN (hypertension) Condition: Stable Coding Level of Care Code ED [employer] 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
[2021-10-28 09:39] LABS: Basophils # 0.1 10^3/uL (0.0-0.1); Basophils % 0.6 %; Eosinophils # 0.3 10^3/uL (0.0-0.8); Eosinophils % 2.7 %; Hematocrit 35.2 % (37.0-47.0); Hemoglobin 11.3 g/dL (11.5-15.3); Lymphocytes # 1.6 10^3/uL (0.8-4.8); Lymphocytes % 16.3 %; Mean Corpuscular HGB Conc 32.1 g/dL (30.0-36.0); Mean Corpuscular Hemoglobin 26.5 pg (28.0-34.0); Mean Corpuscular Volume 82.6 fl (81-99); Mean Platelet Volume 12.8 fL (7.4-10.4); Monocytes # 0.9 10^3/uL (0.2-0.9); Monocytes % 9.5 %; Neutrophils # 6.96 10^3/uL (1.8-7.7); Neutrophils % 70.7 %; Nucleated Red Blood Cells % 0 %; Platelet Count 279 10^3/cmm (130-400); Red Blood Count 4.26 10^6/uL (4.1-5.3); Red Cell Distribution Width 17.7 % (12.1-15.1); White Blood Count 9.9 10^3/uL (4.0-10.0)
[2021-10-28 09:49] LABS: INR 1.07 (0.8-1.2)
[2021-10-28 09:50] LABS: Partial Thromboplastin Time 29.2 SECONDS (23.9-36.7)
[2021-10-28 10:00] LABS: Alanine Aminotransferase 22 U/L (0-33); Albumin Level 3.4 g/dL (3.5-5.2); Alkaline Phosphatase 185 IU/L (35-105); Anion Gap 16.7 (5-19); Aspartate Amino Transferase 24 U/L (0-32); Blood Urea Nitrogen 16 mg/dL (8-23); Carbon Dioxide 22 mmol/L (22-29); Chloride 103 mmol/L (98-107); Globulin 3.3 g/dL (1.3-4.6); Glucose 97 mg/dL (65-115); Osmolality Calculated 285 mOsm/kg (285-295); Potassium 4.7 mmol/L (3.5-5.1); Sodium 137 mmol/L (136-145); Total Bilirubin 0.5 mg/dL (0.15-1.2); Total Protein 6.7 g/dL (6.6-8.7)
[2021-10-28 10:38] LABS: Add Urine Microscopic? YES; Bilirubin Urine Neg (Negative); Blood Urine Neg (Negative); Glucose Urine UA Norm (Normal); Ketones Urine Negative (Negative); Leukocyte Esterase Urine Negative (Negative); Nitrate Urine Positive (Negative); Protein Urine Neg (Negative); Specific Gravity, Urine 1.015 (1.005-1.030); Urine Appearance SL Hazy (CLEAR); Urine Color Yellow (Yellow); Urobilinogen Urine Norm (Negative); pH Urine 7 (5-7)
[2021-10-28 10:47] LABS: Amphetamines Screen Urine Negative (Negative); Barbiturates Screen Urine Negative (Negative); Benzodiazepines Screen Urine Negative (Negative); Cocaine Screen Urine Negative (Negative); Opiate Screen Urine Negative (Negative); PCP Screen Urine Negative (Negative); THC Screen Urine Negative (Negative)
[2021-10-28 11:17] LABS: Bacteria Urine 1+ /hpf; Squamous Epithelial Cell Urine 0-4 /hpf (0-5); WBC Urine 0-4 /hpf (0-5)
[2021-10-28 11:18] LABS: Add Urine Culture? Yes
--- NOTE | 2021-10-28 14:11 | P.HP_ITS ---
Providers/Chief Complaint Primary Care Provider: Raul Schaeffer MD Chief Complaint: STROKE LIKE SYMPTOMS History of Present Illness Jennifer Sahu is a 71 year old female with past medical history of HTN, coronary artery disease status post stent, Atrial fibrillation, not on any anti- coagulation chronic migraine , senior living resident was brought in by EMS with after her roommate found her slumped over on the toilet this morning. 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 Upon arrival in the ER she was worked up for above-mentioned complaint: Pertinent imaging studies CT head without contrast: No acute intracranial hemorrhage or edema. CT angio headneck: No significant cervical carotid stenosis or atherosclerosis. Small amount of plaque in the LEFT proximal ICA.Complete occlusion with thrombus involving the distal LEFT M1 segment. Small amount of edema within the LEFT MCA territory noted on the postcontrast imaging. EKG: Atrial fibrillation Labs: WBC : 9.9, H&H : 11.3/35 , PLT : 279 , serum sodium 137 serum potassium 4.7 BUN serum creatinine: 16/0.8 , Urinalysis: Urine nitrite positive, urine bacteria 1+ History taking has been done by ER chart review. Review of Systems General: Reports: ROS unobtainable due to medical condition Medications/Allergies Home Medications Medication Instructions Recorded Confirmed Last Taken Type spironolactone 25 mg tablet 25 mg PO DAILY@0800 12/25/19 10/28/21 01/29/21 History pantoprazole 40 mg PO DAILY@0803/15/20 10/28/21 01/29/21 History tizanidine 2 mg PO BEDTIME 03/16/20 10/28/21 01/29/21 History tramadol 100 mg PO BID PRN 03/16/20 10/28/21 01/29/21 History clopidogrel 75 mg tablet 75 mg PO DAILY@0800 tab 06/17/20 10/28/21 01/29/21 History furosemide 40 mg tablet 40 mg PO DAILY PRN 12/17/20 10/28/21 01/29/21 History aspirin 81 mg PO DAILY@0801/30/21 10/28/21 01/29/21 History atorvastatin 40 mg PO DAILY@199901/30/21 10/28/21 01/29/21 History magnesium hydroxide [Milk of 30 ml PO DAILY PRN 01/30/21 10/28/21 01/29/21 History Magnesia] nitroglycerin 0.4 mg SUBLINGUAL Q5M PRN 01/30/21 10/28/21 Unknown History topiramate 25 mg PO BID 01/30/21 10/28/21 01/29/21 History docusate sodium [Stool Softener] 300 mg PO DAILY PRN 05/22/21 10/28/21 Unknown History fluticasone propionate [Flonase] 1 - 2 spray INTRANASAL DAILY PRN 05/22/2110/28 Unknown History metoprolol tartrate 12.5 mg PO BID 05/22/21 10/28/21 Unknown History propranolol 20 mg tablet See Rx Instructions .ROUTE 10/26/21 10/28/21 Unknown Rx .COMPLEX #60 tab Allergies Allergy/AdvReac Type Severity Reaction Status Date / Time Penicillins Allergy ALGY-Rash Verified 06/11/21 12:01 PFSH Acute PFSH: Medical History (Updated 10/28/21 @ 14:16 by Cleveland Sands MD) Abnormal stress test Atrial fibrillation Chronic migraine GERD (gastroesophageal reflux disease) HTN (hypertension) Postmenopausal osteoporosis Syncope and collapse Surgical History H/O: hysterectomy Hx of tonsillectomy Post-splenectomy S/P cholecystectomy Family History Other Diabetes Hypertension Social History Smoking and tobacco status: former smoker Alcohol intake: never Vitals/I&O/Wt Last Vital Signs Temp 96.6 F L 10/28/21 09:10 Pulse 107 H 10/28/21 13:14 Resp 15 10/28/21 13:14 BP 145/90 10/28/21 13:14 Pulse Ox 100 10/28/21 13:14 Weight last 48 hrs Weight 104.326 kg Physical Exam Narrative: EXAM NARRATIVE: GCS : 10 HENMT: COMMON NORMALS: normocephalic and atraumatic HEAD & SCALP: normocephalic and atraumatic Resp: COMMON NORMALS: clear to auscultation bilaterally AUSCULTATION: clear to auscultation bilaterally Cardio: COMMON NORMALS: regular rate, regular rhythm, S1 normal heart sound present, S2 normal heart sound present, No gallops present (Cardio), No murmurs present (Cardio), No rub (Cardio) and Peripheral pulses 2+ throughout RATE: regular rate RHYTHM: regular rhythm HEART SOUNDS: S1 normal heart sound present and S2 normal heart sound present PERIPHERAL PULSES: Peripheral pulses 2+ throughout GI: COMMON NORMALS: Normal to inspection, nondistended, normoactive bowel sounds present, Soft to palpation, non-tender, No hepatosplenomegaly present and no masses AUSCULTATION: Yes normoactive bowel sounds PALPATION: Yes Soft to palpation and Yes No hepatosplenomegaly present RECTAL EXAM: deferred Extremity: COMMON NORMALS: no clubbing, cyanosis or edema and no pedal edema Urinary Catheter Management^: Woody: Cath Placed During This Visit: yes Urinary Catheter Date of Insertion: 10/28/21 Urinary Catheter Time of Insertion: 10:52 Data : 10/28/21 09:30 10/28/21 09:30 A&P Assessment and plan (1) Cerebrovascular accident: Status: Acute (2) CAD (coronary artery disease): Status: Acute (3) HTN (hypertension): Status: Acute (4) Atrial fibrillation: Status: Acute Additional A&P Information 71 year old female with past medical history of HTN, coronary artery disease status post stent, Atrial fibrillation, not on any anti-coagulation chronic migraine , senior living resident was brought in by EMS with after her roommate found her slumped over on the toilet this morning. 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 #Acute CVA: Continue telemetry monitoring, 2D echo: Aspirin per rectal Dexamethasone 6 mg IV daily Permissive hypertension Speech and swallow evaluation PT OT evaluation Currently n.p.o. #Atrial fibrillation: Metoprolol 5 mg IV every 4 hours as needed for heart rate greater than 110 #History of coronary artery disease CODE STATUS: Full code Phone call was made on number in chart, line was busy. Attestations Medical Necessity Statement*: Patient needs to be in hospital for the management of Ac CVA.Anticipated LOS Greater then 2 midnights. 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
[2021-10-28] MEDS: dextrose 5%-sod chloride 0.9% 1,000 ML 50 ML IV (15:44)
[2021-10-28 17:56] LABS: Glucose Point of Care 110 mg/dL (70-110)
[2021-10-28 20:19] LABS: Glucose Point of Care 111 mg/dL (70-110)
[2021-10-28] MEDS: dexamethasone 10 mg/mL INJ 6 MG IVP (21:46)
[2021-10-29] VITALS (12 sets, daily range): BP systolic 108–190; BP diastolic 58–95; PULSE 103–130; RESP 16–20; TEMP 36.8–37.7; O2SAT 96–97
[2021-10-29] MEDS: metoprolol tartrate 1 mg/1 mL SDV 5 mL 5 MG IVP (00:05)
[2021-10-29 03:26] LABS: Basophils % 0.2 %; Hematocrit 33.5 % (37.0-47.0); Hemoglobin 10.6 g/dL (11.5-15.3); Lymphocytes # 1.2 10^3/uL (0.8-4.8); Lymphocytes % 10.3 %; Mean Corpuscular HGB Conc 31.6 g/dL (30.0-36.0); Mean Corpuscular Hemoglobin 26.4 pg (28.0-34.0); Mean Corpuscular Volume 83.5 fl (81-99); Mean Platelet Volume 13.1 fL (7.4-10.4); Monocytes # 0.3 10^3/uL (0.2-0.9); Monocytes % 2.1 %; Neutrophils # 10.34 10^3/uL (1.8-7.7); Neutrophils % 87.1 %; Nucleated Red Blood Cells % 0 %; Platelet Count 278 10^3/cmm (130-400); Positive M 1; Red Blood Count 4.01 10^6/uL (4.1-5.3); White Blood Count 11.9 10^3/uL (4.0-10.0)
[2021-10-29 03:31] LABS: INR 1.14 (0.8-1.2)
[2021-10-29 03:32] LABS: Partial Thromboplastin Time 30.7 SECONDS (23.9-36.7)
[2021-10-29 03:47] LABS: Alanine Aminotransferase 21 U/L (0-33); Alkaline Phosphatase 162 IU/L (35-105); Anion Gap 18.3 (5-19); Aspartate Amino Transferase 24 U/L (0-32); Blood Urea Nitrogen 14 mg/dL (8-23); Calcium 9.6 mg/dL (8.5-10.5); Carbon Dioxide 18 mmol/L (22-29); Chloride 105 mmol/L (98-107); Globulin 3.5 g/dL (1.3-4.6); Glucose 120 mg/dL (65-115); Osmolality Calculated 286 mOsm/kg (285-295); Potassium 4.3 mmol/L (3.5-5.1); Sodium 137 mmol/L (136-145); Total Bilirubin 0.6 mg/dL (0.15-1.2); Total Protein 6.5 g/dL (6.6-8.7)
[2021-10-29] MEDS: metoprolol tartrate 1 mg/1 mL SDV 5 mL 2.5 MG IVP ×2 (04:27→19:56)
[2021-10-29 06:37] LABS: Glucose Point of Care 118 mg/dL (70-110)
[2021-10-29] MEDS: labetalol 5 mg/mL SDV 20mL 10 MG IVP (08:06)
--- NOTE | 2021-10-29 08:12 | USCV_ITS ---
Jennifer Sahu Age: 71 Gender: F : 1950 Exam Date: 10/29/2021 13:16 Ordering Phys: Cleveland Sands MD Technologist: Exam Location: [facility] [place] Indication: CVA BP: 108 / 58 HR: 102 Rhythm: Sinus Technical Quality: Adequate MEASUREMENTS (Male / Female) Normal Values 2D ECHO LV Diastolic Diameter PLAX 3.5 cm 4.2 - 5.9 / 3.9 - 5.3 cm LV Systolic Diameter PLAX 2.3 cm IVS Diastolic Thickness 1.0 cm 0.6 - 1.0 / 0.6 - 0.9 cm IVS Systolic Thickness 1.1 cm LVPW Diastolic Thickness 0.9 cm 0.6 - 1.0 / 0.6 - 0.9 cm LVPW Systolic Thickness 1.2 cm LVOT Diameter 2.0 cm LV Ejection Fraction 2D Teich 66.6 % LA Diameter 3.8 cm LA Width 4.5 cm LA Height 5.1 cm RA Width 4.1 cm RA Height 4.6 cm M-MODE Aortic Annulus Diameter 3.1 cm LA Ao Ratio MM 1.4 MV E Point Septal Separation 0.7 cm DOPPLER AV Peak Velocity 163.7 cm/s LVOT Peak Velocity 88.3 cm/s AV Area Cont Eq vti 1.8 cm squared AV Area Cont Eq pk 1.7 cm squared MV Area PHT 5.0 cm squared Mitral E to A Ratio 2.5 MV E' Velocity 68.5 cm/s Mitral E to MV E' Ratio 10.0 Mitral E to LV E' Lateral Ratio 8.9 Mitral E to LV E' Septal Ratio 11.4 TR Peak Velocity 344.7 cm/s TR Peak Gradient 47.5 mmHg TV Peak E Velocity 123.0 cm/s Right Atrial Pressure 3.0 mmHg Pulmonary Artery Systolic Pressu 50.5 mmHg FINDINGS Left Ventricle Normal left ventricular cavity size. Normal left ventricular systolic function. Left ventricular ejection fraction is estimated at 55-60 %. This study is inadequate for estimation of regional wall motion normality. Rhythm precludes evaluation of diastolic function. Right Ventricle Right ventricle not well visualized. Right ventricular systolic pressure 50.5 mmHg. Right Atrium Normal right atrial size. Left Atrium Mildly increased left atrial size. Mitral Valve Moderate mitral annular calcification. Mildly thickened mitral valve. No mitral valve stenosis. Mild mitral valve regurgitation. Aortic Valve Aortic valve not well visualized. No aortic valve stenosis. Tricuspid Valve Mild tricuspid valve regurgitation. Pulmonic Valve Pulmonic valve not well visualized. Trace pulmonary valve regurgitation. Pericardium No pericardial effusion. Aorta Aorta not well visualized. CONCLUSIONS 1. This is a technically very difficult study. 2. Normal left ventricular cavity size. Normal left ventricular systolic function. Left ventricular ejection fraction is estimated at 55-60 %. This study is inadequate for estimation of regional wall motion normality. 3. Mild mitral and tricuspid valve regurgitation. 4. Moderate pulmonary hypertension with pulmonary artery pressure estimated at 51 mmHg. 5. When compared to previous echocardiogram dated 01/30/2021, there may not have been any significant change. Gena West MD (Electronically Signed) Final Date: 29 October 2021 17:00 S
[2021-10-29] MEDS: aspirin 300 mg Supp PR (09:34)
[2021-10-29] MEDS: dextrose 5%-sod chloride 0.9% 1,000 ML 50 ML IV (10:20)
--- NOTE | 2021-10-29 11:31 | PC.SLP ---
Attempted to see patient to assess for speech and swallowing based on orders received 10/28/2021. Patient was unable to be aroused to participate. Her nurse reported she is unresponsive to all stimuli. Will continue to monitor.
--- NOTE | 2021-10-29 13:55 | PM.CONSULT ---
Providers/Reason For Consult Consulting Physician/Specialty*: Kaden Bush MD Reason for Consult*: Feeding difficulty Requesting Physician: Dr. Sands Attending Physician: Cleveland Sands MD Primary Care Provider: Raul Schaeffer MD History of Present Illness History of Present Illness Chief Complaint: History of stroke History of present illness: Jennifer Sahu is a 71 year old female patient admitted to the hospitalist service with CVA and patient appears to be nonverbal with right hemiparesis. The history was obtained from Ms. Aissatou bolanos her sister over the phone as during the clinical encounter and noticed that the patient had upper abdominal scars right paramedian and upper midline, and appears that the patient had history of cholecystectomy and splenectomy and apparently she had a history of open gastric bypass per patient's sister description back in the 70s but she does not know exactly the exact type of the procedure when I asked her if would be a potential vertical gastroplasty as the sister describes that there was an attempt to remove the ashwin and then the splint started bleeding and he had to take it out. Unfortunately we do not have any operative report with the description of the procedure since it has been a long time. And also the sister describes that Ms. Jennifer bolanos had developed a liver abscess and was treated at [facility] back in 2009. CT scan of the head showed 1. No acute intracranial hemorrhage or edema. 2. Moderate atrophy and chronic ischemic disease. No acute area of sulcal effacement. CT angiogram cerebral and carotid arteries October 28, 2021 1. No significant cervical carotid stenosis or atherosclerosis. Small amount of plaque in the LEFT proximal ICA. 2. Complete occlusion with thrombus involving the distal LEFT M1 segment. Small amount of edema within the LEFT MCA territory noted on the postcontrast imaging. General surgery was consulted to evaluate the patient for potential PEG tube placement Review of Systems General: Reports: ROS unobtainable due to medical condition Meds/Allergies Home Medications and Allergies Home Medications Medication Instructions Recorded Confirmed Last Taken Type spironolactone 25 mg tablet 25 mg PO DAILY@0800 12/25/19 10/28/21 01/29/21 History pantoprazole 40 mg PO DAILY@0800 03/15/20 10/28/21 01/29/21 History tizanidine 2 mg PO BEDTIME 03/16/20 10/28/21 01/29/21 History tramadol 100 mg PO BID PRN 03/16/20 10/28/21 01/29/21 History clopidogrel 75 mg tablet 75 mg PO DAILY@0800 tab 06/17/20 10/28/21 01/29/21 History furosemide 40 mg tablet 40 mg PO DAILY PRN 12/17/20 10/28/21 01/29/21 History aspirin 81 mg PO DAILY@0800 01/30/21 10/28/21 01/29/21 History atorvastatin 40 mg PO DAILY@199901/30/21 10/28/21 01/29/21 History magnesium hydroxide [Milk of 30 ml PO DAILY PRN 01/30/21 10/28/21 01/29/21 History Magnesia] nitroglycerin 0.4 mg SUBLINGUAL Q5M PRN 01/30/21 10/28/21 Unknown History topiramate 25 mg PO BID 01/30/21 10/28/21 01/29/21 History docusate sodium [Stool Softener] 300 mg PO DAILY PRN 05/22/21 10/28/21 Unknown History fluticasone propionate [Flonase] 1 - 2 spray INTRANASAL DAILY PRN 05/22/21 10/28/21 Unknown History metoprolol tartrate 12.5 mg PO BID 05/22/21 10/28/21 Unknown History propranolol 20 mg tablet See Rx Instructions .ROUTE 10/26/21 10/28/21 Unknown Rx .COMPLEX #60 tab Allergies Allergy/AdvReac Type Severity Reaction Status Date / Time Penicillins Allergy ALGY-Rash Verified 10/29/21 13:57 Current Medications Current Medications Generic Name Dose Route Start Last Admin Trade Name Freq PRN Reason Stop Dose Admin Aspirin 300 mg 10/29/21 09:00 10/29/21 09:34 Aspirin 300 Mg Supp [place] 300 mg DAILY TAWANNA Administration Dexamethasone 6 mg 10/28/21 19:45 10/28/21 21:46 Dexamethasone 10 Mg/Ml Inj IVP 6 mg Q24H TAWANNA Administration Dextrose/Sodium Chloride 1,000 mls @ 50 mls/hr 10/28/21 14:00 10/29/21 10:20 Dextrose 5%-Sod Chloride 0.9% IV 50 mls/hr .Q20H TAWANNA Administration Labetalol HCl 10 mg 10/29/21 07:58 10/29/21 08:06 Labetalol 5 Mg/Ml Sdv 20ml IVP 10 mg Q4H PRN Administration HYPERTENSION Metoprolol Tartrate 2.5 mg 10/29/21 04:16 10/29/21 04:27 Metoprolol Tartrate 1 Mg/1 Ml Sdv 5 Ml IVP 2.5 mg Q4H PRN Administration HYPERTENSION PFSH Acute PFSH: Medical History Abnormal stress test Atrial fibrillation Chronic migraine GERD (gastroesophageal reflux disease) HTN (hypertension) Postmenopausal osteoporosis Syncope and collapse Surgical History (Updated 10/29/21 @ 16:44 by Kaden Bush MD) H/O: hysterectomy Hx of tonsillectomy Post-splenectomy S/P cholecystectomy Family History Other Diabetes Hypertension Social History Smoking and tobacco status: former smoker Alcohol intake: never Vitals/I&O/Wt Last Vital Signs Temp 99.8 F H 10/29/21 11:35 Pulse 103 H 10/29/21 11:35 Resp 16 10/29/21 11:35 BP 108/58 10/29/21 11:35 Pulse Ox 97 10/29/21 11:35 10/28/21 10/29/21 10/29/21 22:59 06:59 14:59 Intake Total 930 / 930 Output Total 800 / 800 350 / 1150 Balance -800 / -800 -350 / -1150 930 / 930 Weight last 48 hrs Weight 230 lb Physical Exam Narrative: EXAM NARRATIVE: Patient is conscious alert nonverbal Follows commands in the form squeezing fingers with the left hand BMI 46.5 Head and neck examination PERRLA no masses no cervical lymphadenopathy no jaundice Cardiac examination audible S1-S2 no murmurs no gallops no arrhythmias Chest left side of the chest reveals crackles and clear entry on the right side Abdomen nontender nondistended soft no organomegaly guarding or rigidity/no signs of peritonitis Upper right paramedian and upper midline scar Woody catheter in place Urinary Catheter Management^: Woody: Cath Placed During This Visit: yes Reason for Continuing Indwelling Catheter: Acute Urinary Retention or Obstruction Urinary Catheter Date of Insertion: 10/28/21 Urinary Catheter Time of Insertion: 10:52 A&P Assessment and plan (1) Feeding difficulty: After history taking and physical examination and further discussing the case with the patient's sister, certainly the patient will require some sort of feeding access but in the light of previous gastric surgery which I am not sure about the nature of the surgery we will have to investigate it more before we plan for any potential intervention. The original thought is to perform a PEG tube procedure but after knowing that the patient had previous foregut surgery it would be very pertinent to have a better understanding of the underlying surgical anatomy Thank you for consulting general surgery to participate taking care Ms. Sahu Status: Acute (2) History of bariatric surgery: We will continue to continue coordinating care with Dr. Sands and we will plan to request a CT scan of the abdomen and pelvis with IV contrast only as patient is not able to swallow oral contrast which would have been more convenient if we can have oral contrast to delineate the underlying gastric anatomy. Will review the CT scan and will determine with the family and the hospitalist service the best approach for feeding access, as to my understanding the patient is not able to have appropriate evaluation per speech pathology due to inability to communicate swallow efficiently. Status: Acute Consult Attestations Medical Necessity Statement: Per admitting service Time Spent in Patient Care: 16 - 35 minutes (>than 50% of time spent in counselling and/or direct pt care on unit). Coding Level of Care Code Acute Die Try Out Worker for Chg Fwd Diagnoses Feeding difficulty R63.30 History of bariatric surgery Z98.84
[2021-10-29] MEDS: enoxaparin 40 mg/0.4 mL Syringe SUBCUT (15:25)
--- NOTE | 2021-10-29 16:42 | CTR_ITS ---
PROCEDURE INFORMATION: Exam: CT Abdomen And Pelvis With Contrast Exam date and time: 10/29/2021 4:42 PM Age: 71 years old Clinical indication: Screening exam; Other: Need for peg tube; Prior surgery; Surgery date: 6+ months; Surgery type: Need peg tube placement. HX of open gastric bypass; Additional info: H/o prior open gatric bypass, need for peg tube placement TECHNIQUE: Imaging protocol: Computed tomography of the abdomen and pelvis with contrast. Radiation optimization: All CT scans at this facility use at least one of these dose optimization techniques: automated exposure control; mA and/or kV adjustment per patient size (includes targeted exams where dose is matched to clinical indication); or iterative reconstruction. Contrast material: OMNI 300; Contrast volume: 95 ml; Contrast route: INTRAVENOUS (IV); COMPARISON: CT abdomen pelvis w con* [id number] 02/18/2016 1:53 PM RADIATION DOSE METRICS: Total DLP (mGy-cm): 1733.63 FINDINGS: Heart: Coronary artery atherosclerotic calcifications. Liver: Normal. No mass. Gallbladder and bile ducts: Normal. No calcified stones. No ductal dilation. Pancreas: Normal. No ductal dilation. Spleen: Normal. No splenomegaly. Adrenal glands: Normal. No mass. Kidneys and ureters: Horseshoe kidney, normal variant. Stomach and bowel: Surgical sutures seen about the stomach. Diverticulosis without diverticulitis. Appendix: No evidence of appendicitis. Intraperitoneal space: Unremarkable. No free air. No significant fluid collection. Vasculature: Unremarkable. No abdominal aortic aneurysm. Lymph nodes: Unremarkable. No enlarged lymph nodes. Urinary bladder: Woody catheter in the urinary bladder with air presumed iatrogenic. Reproductive: Unremarkable as visualized. Bones/joints: Severe right hip osteoarthritis. Soft tissues: Unremarkable. CT/CT abdomen pelvis w con* [id number] IMPRESSION: 1. Negative for focal acute inflammatory process in the abdomen or pelvis. 2. Coronary artery atherosclerotic calcifications. 3. Surgical sutures seen about the stomach. 4. Horseshoe kidney, normal variant. 5. Diverticulosis without diverticulitis. 6. Woody catheter in the urinary bladder with air presumed iatrogenic. 7. Severe right hip osteoarthritis.
--- NOTE | 2021-10-29 16:52 | P.PN_ITS ---
Subjective Subjective: Interval history: Patient was seen and examined this morning, continues to be nonverbal, though she has a spontaneous eye opening, squeezes fingers with left hand. Continues to be in A. fib with heart rate in 110-120s. SPL evaluation: Was not completed as the patient was minimally responsive at that time. No other acute events Medications: Medication Review Details: Generic Name Dose Route Start Last Admin Trade Name Freq PRN Reason Stop Dose Admin Aspirin 300 mg 10/29/21 09:00 10/29/21 09:34 Aspirin 300 Mg S upp MI 300 mg DAILY TAWANNA Administration Dexamethasone 6 mg 10/28/21 19:45 10/28/21 21:46 Dexamethasone 10 Mg/Ml Inj IVP 6 mg Q24H TAWANNA Administration Enoxaparin Sodium 40 mg 10/29/21 14:00 10/29/21 15:25 Enoxaparin 40 Mg /0.4 Ml Syringe SUBCUT 40 mg Q24H TAWANNA Administration Dextrose/Sodium Ch loride 1,000 mls @ 50 ml s/hr 10/28/21 14:00 10/29/21 10:20 Dextrose 5%-Sod Chloride 0.9% IV 50 mls/hr .Q20H TAWANNA Administration Labetalol HCl 10 mg 10/29/21 07:58 10/29/21 08:06 Labetalol 5 Mg/M l Sdv 20ml IVP 10 mg Q4H PRN Administration HYPERTENSION Metoprolol Tartrat e 2.5 mg 10/29/21 04:16 10/29/21 04:27 Metoprolol Tartr ate 1 Mg/1 Ml Sdv 5 Ml IVP 2.5 mg Q4H PRN Administration HYPERTENSION Vitals/I&O/Wt Last Vital Signs Temp 98.2 F 10/29/21 15:51 Pulse 116 H 10/29/21 15:51 Resp 16 10/29/21 15:51 BP 142/74 10/29/21 15:51 Pulse Ox 96 10/29/21 15:51 10/29/21 10/29/21 10/29/21 06:59 14:59 22:59 Intake Total 930 / 930 Output Total 350 / 1150 Balance -350 / -1150 930 / 930 Weight last 48 hrs Weight 104.326 kg Physical Exam Narrative: EXAM NARRATIVE: GCS : 10 HENMT: COMMON NORMALS: normocephalic and atraumatic HEAD & SCALP: normocephalic and atraumatic Resp: COMMON NORMALS: clear to auscultation bilaterally EFFORT & INSPECTION : Yes symmetric chest movement AUSCULTATION: clear to auscultation bilaterally Cardio: COMMON NORMALS: regular rate, regular rhythm, S1 normal heart sound present, S2 normal heart sound present, No gallops present (Cardio), No murmurs present (Cardio), No rub (Cardio) and Peripheral pulses 2+ throughout RATE: regular rate RHYTHM: regular rhythm HEART SOUNDS: S1 normal heart sound present and S2 normal heart sound present PERIPHERAL PULSES: Peripheral pulses 2+ throughout GI: COMMON NORMALS: Normal to inspection, nondistended, normoactive bowel sounds present, Soft to palpation, non-tender, No hepatosplenomegaly present and no masses AUSCULTATION: Yes normoactive bowel sounds PALPATION: Yes Soft to palpation and Yes No hepatosplenomegaly present RECTAL EXAM: deferred Extremity: COMMON NORMALS: no clubbing, cyanosis or edema and no pedal edema Urinary Catheter Management^: Woody: Cath Placed During This Visit: yes Reason for Continuing Indwelling Catheter: Acute Urinary Retention or Obstruction Urinary Catheter Date of Insertion: 10/28/21 Urinary Catheter Time of Insertion: 10:52 Data : 10/29/21 03:05 10/29/21 03:05 Micro: Microbiology 10/28/21 10:25 Urine Culture - Preliminary Urine,Clean Catch Gram Negative Rods A&P Assessment and plan (1) Cerebrovascular accident: Status: Acute (2) CAD (coronary artery disease): Status: Acute (3) HTN (hypertension): Status: Acute (4) Atrial fibrillation: Status: Acute Additional A&P Information 71 year old female with past medical history of HTN, coronary artery disease status post stent, Atrial fibrillation, not on any anti-coagulation chronic migraine , alf resident was brought in by EMS with after her roommate found her slumped over on the toilet this morning. 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 #Acute CVA: Continue telemetry monitoring, 2D echo: Aspirin per rectal Dexamethasone 6 mg IV daily Permissive hypertension Speech and swallow evaluation Evaluation performed evaluation for possible PEG tube placement: CT abdomen and pelvis with IV contrast: Given the history of gastric surgery in the past, for better delineation of the anatomy, in case of PEG Tube placement. PT OT evaluation Currently n.p.o. #Atrial fibrillation: Metoprolol 2.5 mg IV every 4 hours as needed for heart rate greater than 110 #History of coronary artery disease CODE STATUS: AND Attestations Medical Necessity Statement*: Patient needs to be in the hospital for management of acute CVA. Coding Level of Care Code Acute Administrative Office Assistant for Chg Fwd Diagnoses Cerebrovascular accident I63.9 CAD (coronary artery disease) I25.10 HTN (hypertension) I10 Atrial fibrillation I48.91
[2021-10-29] MEDS: iohexol 300 mg/mL 100 mL Btl IV (17:42)
[2021-10-29] MEDS: dexamethasone 10 mg/mL INJ 6 MG IVP (21:43)
[2021-10-30] VITALS (16 sets, daily range): BP systolic 111–144; BP diastolic 58–88; PULSE 93–133; RESP 20–26; TEMP 36.6–37.4; O2SAT 88–96
[2021-10-30 04:35] LABS: Basophils % 0.1 %; Hematocrit 30.3 % (37.0-47.0); Hemoglobin 10.2 g/dL (11.5-15.3); Lymphocytes # 1.4 10^3/uL (0.8-4.8); Lymphocytes % 9.1 %; Mean Corpuscular HGB Conc 33.7 g/dL (30.0-36.0); Mean Corpuscular Hemoglobin 27.7 pg (28.0-34.0); Mean Corpuscular Volume 82.3 fl (81-99); Mean Platelet Volume 13.4 fL (7.4-10.4); Monocytes # 0.7 10^3/uL (0.2-0.9); Monocytes % 4.6 %; Neutrophils # 13.44 10^3/uL (1.8-7.7); Neutrophils % 85.6 %; Nucleated Red Blood Cells % 0 %; Platelet Count 310 10^3/cmm (130-400); Red Blood Count 3.68 10^6/uL (4.1-5.3); Red Cell Distribution Width 18.4 % (12.1-15.1); White Blood Count 15.7 10^3/uL (4.0-10.0)
[2021-10-30] MEDS: metoprolol tartrate 1 mg/1 mL SDV 5 mL 2.5 MG IVP ×2 (04:58→11:18)
[2021-10-30] MEDS: dextrose 5%-sod chloride 0.9% 1,000 ML 50 ML IV (06:48)
[2021-10-30 07:38] LABS: Alanine Aminotransferase 27 U/L (0-33); Albumin Level 2.9 g/dL (3.5-5.2); Alkaline Phosphatase 142 IU/L (35-105); Anion Gap 16.3 (5-19); Aspartate Amino Transferase 39 U/L (0-32); Blood Urea Nitrogen 15 mg/dL (8-23); Calcium 8.4 mg/dL (8.5-10.5); Carbon Dioxide 18 mmol/L (22-29); Chloride 107 mmol/L (98-107); Glucose 120 mg/dL (65-115); Osmolality Calculated 286 mOsm/kg (285-295); Potassium 4.3 mmol/L (3.5-5.1); Sodium 137 mmol/L (136-145); Total Bilirubin 0.9 mg/dL (0.15-1.2); Total Protein 5.9 g/dL (6.6-8.7)
[2021-10-30] MEDS: aspirin 300 mg Supp PR (09:17)
--- NOTE | 2021-10-30 11:40 | XRR_ITS ---
PROCEDURE INFORMATION: Exam: XR Chest Exam date and time: 10/30/2021 11:40 AM Age: 71 years old Clinical indication: Shortness of breath; Additional info: SOB TECHNIQUE: Imaging protocol: XR of the chest. Views: 1 view. COMPARISON: CR XR chest 1V portable [id number] 10/28/2021 9:47 AM FINDINGS: Lungs: Unremarkable. No consolidation. Pleural spaces: Unremarkable. No pleural effusion. No pneumothorax. Heart/Mediastinum: Unremarkable. No cardiomegaly. Bones/joints: There are degenerative changes in the thoracic spine and across the acromioclavicular joints. XR/XR chest 1V portable [id number] IMPRESSION: No evidence for acute cardiopulmonary disease.
[2021-10-30] MEDS: cefTRIAXone 1,000 MG in sodium chloride 0.9% (plus) 50 ML 100 MG IV (12:58)
[2021-10-30] MEDS: digoxin 250 mcg/ml INJ 2 mL IVP (13:30)
[2021-10-30] MEDS: ipratropium-albuterol 3 mL Neb INHALATION ×2 (14:45→20:53)
[2021-10-30] MEDS: acetylcysteine 200 mg/mL SDV 4 mL INHALATION (14:45)
[2021-10-30] MEDS: enoxaparin 40 mg/0.4 mL Syringe SUBCUT (15:11)
--- NOTE | 2021-10-30 17:27 | P.PN_ITS ---
Subjective Subjective: Interval history: Seems responding more today Medications: Reviewed: Yes Vitals/I&O/Wt Last Vital Signs Temp 98.7 F 10/30/21 16:00 Pulse 102 H 10/30/21 16:00 Resp 26 H 10/30/21 16:00 BP 143/78 10/30/21 16:00 Pulse Ox 92 10/30/21 16:00 10/30/21 10/30/21 10/30/21 06:59 14:59 22:59 Intake Total 1000 / 1930 Output Total 900 / 900 Balance 100 / 1030 Physical Exam Narrative: EXAM NARRATIVE: Patient is more conscious alert nonverbal Still Follows commands in the form squeezing fingers with the left hand BMI 46.5 Head and neck examination PERRLA no masses no cervical lymphadenopathy no jaundice Abdomen nontender nondistended soft no organomegaly guarding or rigidity/no signs of peritonitis Upper right paramedian and upper midline scar Right Hemiparesis Woody catheter in place Urinary Catheter Management^ Woody: Cath Placed During This Visit: yes Reason for Continuing Indwelling Catheter: Acute Urinary Retention or Obstruction Urinary Catheter Date of Insertion: 10/28/21 Urinary Catheter Time of Insertion: 10:52 Urinary Catheter Management^: Woody: Cath Placed During This Visit: yes Reason for Continuing Indwelling Catheter: Acute Urinary Retention or Obstruction Urinary Catheter Date of Insertion: 10/28/21 Urinary Catheter Time of Insertion: 10:52 Data : 10/30/21 04:18 10/30/21 07:00 Micro: Microbiology 10/28/21 10:25 Urine Culture - Final Urine,Clean Catch Escherichia coli A&P Assessment and plan (1) Feeding difficulty: Plan of care; After thorough history and physical examination and reviewing the chart, plan to perform a diagnostic esophagogastroduodenoscopy with possible biopsy in the GI lab. Plan of care; After thorough history and physical examination and reviewing the chart And images of the CT scan of the abdomen and pelvis and discussing those images with Dr.Smetko Cueva-radiologist over the phone,whom he agreed with me that the patient does not have a gallbladder or spleen and also he does not believe that the patient has history of gastric bypass likely some sort of vertical banded gastroplasty. Also I did discuss the case with Ms. Sahu sister's Ms. Aissatou Sahu over the phone and I did not obtain an informed consent from her as she has been the power of workers compensation attorney, in the presence of caring nurse Ms. Pippa COLBY. Ms. Reyez is interested to proceed with percutaneous endoscopic guided gastrostomy feeding Placement. I discussed with the patient's POA in detail the risk,benefits,alternatives and indications.The risk of aspiration, bleeding, soft tissue injury, perforation of the stomach/esophagus and other potential concomitant complications were explained to the patient's POA in details,aslo the potential need for Thoracic and/or Abdominal surgery to repair any complications.The patient's POA understood this well and did agree to proceed. Rationale was carefully and clearly discussed with the patient's POA.Appropriate informed consent have been reviewed and signed All questions have been answered and all concerns have been addressed to patient's satisfaction. Thank you for consulting general surgery to participate taking care Ms. Sahu Status: Acute (2) History of bariatric surgery: Recommending tomorrow the PEG tube placement if that was not successful, will discuss further options with the family about potential laparoscopic placement of gastrostomy feeding tube or endoscopic/image guided Dobbhoff tube. As of now the patient's power of workers compensation attorney is interested only to proceed with PEG tube attempt. 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 Coding Level of Care Code Acute Tour Bus Driver for Chg Fwd Diagnoses Feeding difficulty R63.30 History of bariatric surgery Z98.84 Post-splenectomy Z90.81
--- NOTE | 2021-10-30 19:10 | PM.PN ---
Subjective Subjective: Interval history: Patient is more responsive today, currently she is in A. fib with RVR , x-ray chest done today: No infiltrates , no pulmonary congestion , Medications: Reviewed: Yes Medication Review Details: Generic Name Dose Route Start Last Admin Trade Name Freq PRN Reason Stop Dose Admin Aspirin 300 mg 10/29/21 09:00 10/29/21 09:34 Aspirin 300 Mg S upp [place] 300 mg DAILY TAWANNA Administration Dexamethasone 6 mg 10/28/21 19:45 10/28/21 21:46 Dexamethasone 10 Mg/Ml Inj IVP 6 mg Q24H TAWANNA Administration Enoxaparin Sodium 40 mg 10/29/21 14:00 10/29/21 15:25 Enoxaparin 40 Mg /0.4 Ml Syringe SUBCUT 40 mg Q24H TAWANNA Administration Dextrose/Sodium Ch loride 1,000 mls @ 50 ml s/hr 10/28/21 14:00 10/29/21 10:20 Dextrose 5%-Sod Chloride 0.9% IV 50 mls/hr .Q20H TAWANNA Administration Labetalol HCl 10 mg 10/29/21 07:58 10/29/21 08:06 Labetalol 5 Mg/M l Sdv 20ml IVP 10 mg Q4H PRN Administration HYPERTENSION Metoprolol Tartrat e 2.5 mg 10/29/21 04:16 10/29/21 04:27 Metoprolol Tartr ate 1 Mg/1 Ml Sdv 5 Ml IVP 2.5 mg Q4H PRN Administration HYPERTENSION Vitals/I&O/Wt Last Vital Signs Temp 98.7 F 10/30/21 16:00 Pulse 95 10/30/21 18:22 Resp 26 H 10/30/21 16:00 BP 129/79 10/30/21 18:22 Pulse Ox 92 10/30/21 16:00 10/30/21 10/30/21 10/30/21 06:59 14:59 22:59 Intake Total 1000 / 1930 Output Total 900 / 900 500 / 500 Balance 100 / 1030 -500 / -500 Physical Exam Narrative: EXAM NARRATIVE: GCS : 10 HENMT: COMMON NORMALS: normocephalic and atraumatic HEAD & SCALP: normocephalic and atraumatic Resp: COMMON NORMALS: clear to auscultation bilaterally EFFORT & INSPECTION: Yes symmetric chest movement AUSCULTATION: clear to auscultation bilaterally Cardio: COMMON NORMALS: regular rate, regular rhythm, S1 normal heart sound present, S2 normal heart sound present, No gallops present (Cardio), No murmurs present (Cardio), No rub (Cardio) and Peripheral pulses 2+ throughout RATE: regular rate RHYTHM: regular rhythm HEART SOUNDS: S1 normal heart sound present and S2 normal heart sound present PERIPHERAL PULSES: Peripheral pulses 2+ throughout GI: COMMON NORMALS: Normal to inspection, nondistended, normoactive bowel sounds present, Soft to palpation, non-tender, No hepatosplenomegaly present and no masses AUSCULTATION: Yes normoactive bowel sounds PALPATION: Yes Soft to palpation and Yes No hepatosplenomegaly present RECTAL EXAM: deferred Extremity: COMMON NORMALS: no clubbing, cyanosis or edema and no pedal edema Urinary Catheter Management^: Woody: Cath Placed During This Visit: yes Reason for Continuing Indwelling Catheter: Acute Urinary Retention or Obstruction Urinary Catheter Date of Insertion: 10/28/21 Urinary Catheter Time of Insertion: 10:52 Data : 10/30/21 04:18 10/30/21 07:00 Micro: Microbiology 10/28/21 10:25 Urine Culture - Final Urine,Clean Catch Escherichia coli A&P Assessment and plan (1) Cerebrovascular accident: Status: Acute (2) Atrial fibrillation with RVR: Status: Acute (3) CAD (coronary artery disease): Status: Acute (4) HTN (hypertension): Status: Acute Additional A&P Information 71 year old female with past medical history of HTN, coronary artery disease status post stent, Atrial fibrillation, not on any anti-coagulation chronic migraine , care home resident was brought in by EMS with after her roommate found her slumped over on the toilet this morning. 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 #Acute CVA: Continue telemetry monitoring, 2D echo: Normal left ventricular cavity size. Normal left ventricular systolic function. Left ventricular ejection fraction is estimated at 55-60 %. This study is inadequate for estimation of regional wall motion normality. Mild mitral and tricuspid valve regurgitation. Moderate pulmonary hypertension with pulmonary artery pressure estimated at 51 mmHg. Aspirin per rectal Dexamethasone 6 mg IV daily Permissive hypertension Speech and swallow evaluation Evaluation performed evaluation for possible PEG tube placement: CT abdomen and pelvis with IV contrast: Given the history of gastric surgery in the past, for better delineation of the anatomy, in case of PEG Tube placement. PT OT evaluation Currently n.p.o. #Atrial fibrillation with RVR: Patient received digoxin to 250 mcg IV x1 dose Currently she is on Cardizem drip fixed rate. #History of coronary artery disease CODE STATUS: AND Attestations Medical Necessity Statement*: Patient is in hospital for management of acute CVA, due for possible PEG tube placement tomorrow. Coding Level of Care Code Acute Supervisor Quilting for Chg Fwd Diagnoses Cerebrovascular accident I63.9 Atrial fibrillation with RVR I48.91 CAD (coronary artery disease) I25.10 HTN (hypertension) I10
--- NOTE | 2021-10-30 22:51 | PC.NURSE ---
Call from provider Call from provider to increase Cardizem to 7.5mg/hr.
--- NOTE | 2021-10-30 22:53 | P.ANESASSM_ITS ---
Pre-Anesthetic Assessment Pre-Anesthetic Assessment: Height/Weight: Height 1.5 m Weight 104.326 kg Temp Pulse Resp BP Pulse Ox 99.1 F 93 20 H 135/76 93 10/30/21 20:00 10/30/21 22:38 10/30/21 20:53 10/30/21 20:00 10/30/21 20:53 Preop Diagnosis: Dysphagia Proposed Procedure: Operation Date: 10/31/21 08:00 Proposed Procedures p PEG Tube Insertion(Not Applicable) - Kaden Bush MD Familial anesthetic complications: Per sister Aissatou Sahu hx of PONV no allergies to anesthesia known Was Beta Axel taken within 24 hours: Yes Was Clonidine taken within 24 hours: N/A Social: Social History: No tobacco Exam: Pre-Anes Outpt Exam: clear to auscultation bilaterally Additional Exam Findings (including area of procedure): Atrial fibrillation on diltiazem infusion Airway: Dentition: False Additional comments: Unable to cooperate with airway exam due to AMS s/p CVA Pulmonary: Pulmonary: None reported Comments: CXR 10/30/21 XR/XR chest 1V portable [id number] IMPRESSION: No evidence for acute cardiopulmonary disease. CV/HEM: CV/HEM: Afib, CAD and HTN Comments: Anemia Afib w/ RVR on diltizem TTE 10/29/21 CONCLUSIONS 1. This is a technically very difficult study. 2. Normal left ventricular cavity size. Normal left ventricular systolic function. Left ventricular ejection fraction is estimated at 55-60 %. This study is inadequate for estimation of regional wall motion normality. 3. Mild mitral and tricuspid valve regurgitation. 4. Moderate pulmonary hypertension with pulmonary artery pressure estimated at 51 mmHg. 5. When compared to previous echocardiogram dated 01/30/2021, there may not have been any significant change. EKG 10/29/21 ATRIAL FIBRILLATION ABNORMAL RHYTHM ECG Compared to ECG 05/22/2021 17:50:39 No significant changes Electronically Signed On 10-28-2021 20:31:01 KILN LOADER by Gena West M.D. [email or web address] : Comments: S/P cholecystectomy S/P splenectommy Hepatic: Hepatic: None reported GI: GI: GERD Metabolic: Metabolic: Morbid obesity Musc/skel: Musc/skel: Weakness Neuropsych: Neuropsych: CVA (AMS Does not respond to command, non verbal, spontaneously breathing, eyes open) Comments: Migraines Head CT 10/28/21 CT/CT head wo con* [id number] IMPRESSION: 1. No acute intracranial hemorrhage or edema. 2. Moderate atrophy and chronic ischemic disease. No acute area of sulcal effacement. Anesthetic Plan: ASA status: 4 Anesthesia: Anesthesia Evaluation and MAC Other: Anesthesia risk and benefits discussed with patient's sister and POA who consents to anesthesia for patient. Risk of > 500 ml blood loss (7ml/kg in children): No Meds/Allergies Current Medications: Current Medications Generic Name Dose Route Start Last Admin Trade Name Freq PRN Reason Stop Dose Admin Albuterol/Ipratrop ium 3 ml 10/30/21 15:00 10/30/21 20:53 Ipratropium-Albu terol 3 Ml Neb INHALATION 3 ml Q6H.RESPIRATORY S CH Administration Aspirin 300 mg 10/29/21 09:00 10/30/21 09:17 Aspirin 300 Mg S upp [place] 300 mg DAILY TAWANNA Administration Enoxaparin Sodium 40 mg 10/29/21 14:00 10/30/21 15:11 Enoxaparin 40 Mg /0.4 Ml Syringe SUBCUT 40 mg Q24H TAWANNA Administration Ceftriaxone Sodium 1,000 mg/ 50 mls @ 100 mls/ hr 10/30/21 12:00 10/30/21 12:58 Sodium Chloride IV 100 mls/hr Q24H TAWANNA Administration Protocol Diltiazem HCl 125 mg/ Sodium 125 mls @ 0 mls/h r 10/30/21 17:30 10/30/21 17:51 Chloride IV 5 mg/hr .Q0M TAWANNA 5 mls/hr Administration Protocol Per Protocol Additional Medication Information: Generic Name Dose Route Start Last Admin Trade Name Freq PRN Reason Stop Dose Admin Aspirin 300 mg 10/29/21 09:00 10/29/21 09:34 Aspirin 300 Mg S upp [place] 300 mg DAILY TAWANNA Administration Dexamethasone 6 mg 10/28/21 19:45 10/28/21 21:46 Dexamethasone 10 Mg/Ml Inj IVP 6 mg Q24H TAWANNA Administration Enoxaparin Sodium 40 mg 10/29/21 14:00 10/29/21 15:25 Enoxaparin 40 Mg /0.4 Ml Syringe SUBCUT 40 mg Q24H TAWANNA Administration Dextrose/Sodium Ch loride 1,000 mls @ 50 ml s/hr 10/28/21 14:00 10/29/21 10:20 Dextrose 5%-Sod Chloride 0.9% IV 50 mls/hr .Q20H TAWANNA Administration Labetalol HCl 10 mg 10/29/21 07:58 10/29/21 08:06 Labetalol 5 Mg/M l Sdv 20ml IVP 10 mg Q4H PRN Administration HYPERTENSION Metoprolol Tartrat e 2.5 mg 10/29/21 04:16 10/29/21 04:27 Metoprolol Tartr ate 1 Mg/1 Ml Sdv 5 Ml IVP 2.5 mg Q4H PRN Administration HYPERTENSION PFSH Anesthesia PFSH: Medical History Abnormal stress test Atrial fibrillation Chronic migraine GERD (gastroesophageal reflux disease) HTN (hypertension) Postmenopausal osteoporosis Syncope and collapse Surgical History H/O: hysterectomy Hx of tonsillectomy Post-splenectomy S/P cholecystectomy Family History Other Diabetes Hypertension Social History Smoking and tobacco status: former smoker Alcohol intake: never Data Anesthesia CBC & Chem 7: 10/31/21 06:15 10/31/21 06:15 Other Labs: Laboratory Results - last 48 hr 10/29/21 10/29/21 10/29/21 03:05 03:05 03:05 WBC 11.9 H RBC 4.01 L Hgb 10.6 L Hct 33.5 L MCV 83.5 MCH 26.4 L MCHC 31.6 RDW 18.0 H Plt Count 278 MPV 13.1 H Neut % (Auto) 87.1 Lymph % (Auto) 10.3 Schuyler % (Auto) 2.1 Eos % (Auto) 0.0 Baso % (Auto) 0.2 Neut # (Auto) 10.34 H Lymph # (Auto) 1.2 Schuyler # (Auto) 0.3 Eos # (Auto) 0.0 Baso # (Auto) 0.0 Nucleated RBC % (auto) 0 Nucleated RBCs # 0.0 PT 15.00 H INR 1.14 APTT 30.7 Sodium 137 Potassium 4.3 Chloride 105 Carbon Dioxide 18 L Anion Gap 18.3 BUN 14 Creatinine 0.6 GFR Calculation Not Reportable Glucose 120 H POC Glucose Calculated Osmolality 286 Calcium 9.6 Total Bilirubin 0.6 AST 24 ALT 21 Alkaline Phosphatase 162 H Total Protein 6.5 L Albumin 3.0 L Globulin 3.5 10/29/21 10/30/21 10/30/21 06:32 04:18 04:18 WBC 15.7 H RBC 3.68 L Hgb 10.2 L Hct 30.3 L MCV 82.3 MCH 27.7 L MCHC 33.7 D RDW 18.4 H Plt Count 310 MPV 13.4 H Neut % (Auto) 85.6 Lymph % (Auto) 9.1 Schuyler % (Auto) 4.6 Eos % (Auto) 0.0 Baso % (Auto) 0.1 Neut # (Auto) 13.44 H Lymph # (Auto) 1.4 Schuyler # (Auto) 0.7 Eos # (Auto) 0.0 Baso # (Auto) 0.0 Nucleated RBC % (auto) 0 Nucleated RBCs # 0.0 PT INR APTT Sodium Cancelled Potassium Cancelled Chloride Cancelled Carbon Dioxide Cancelled Anion Gap Cancelled BUN Cancelled Creatinine Cancelled GFR Calculation Cancelled Glucose Cancelled POC Glucose 118 H Calculated Osmolality Cancelled Calcium Cancelled Total Bilirubin Cancelled AST Cancelled ALT Cancelled Alkaline Phosphatase Cancelled Total Protein Cancelled Albumin Cancelled Globulin Cancelled 10/30/21 07:00 WBC RBC Hgb Hct MCV MCH MCHC RDW Plt Count MPV Neut % (Auto) Lymph % (Auto) Schuyler % (Auto) Eos % (Auto) Baso % (Auto) Neut # (Auto) Lymph # (Auto) Schuyler # (Auto) Eos # (Auto) Baso # (Auto) Nucleated RBC % (auto) Nucleated RBCs # PT INR APTT Sodium 137 Potassium 4.3 Chloride 107 Carbon Dioxide 18 L Anion Gap 16.3 BUN 15 Creatinine 0.7 GFR Calculation Not Reportable Glucose 120 H POC Glucose Calculated Osmolality 286 Calcium 8.4 L Total Bilirubin 0.9 AST 39 H ALT 27 Alkaline Phosphatase 142 H Total Protein 5.9 L Albumin 2.9 L Globulin 3.0 Micro: Microbiology 10/28/21 10:25 Urine Culture - Final Urine,Clean Catch Escherichia coli Cardiac Studies: Echocardiogram 10/29/21 Echocardiogram Ultrasound 01/30/21 Sestamibi Stress Test (Cardiology) 02/11/20 Holter Monitor 02/26/20
[2021-10-31] VITALS (18 sets, daily range): BP systolic 109–156; BP diastolic 54–79; PULSE 80–117; RESP 16–40; TEMP 36.6–38.2; O2SAT 90–96
[2021-10-31] MEDS: ipratropium-albuterol 3 mL Neb INHALATION ×3 (02:36→20:59)
--- NOTE | 2021-10-31 04:17 | PC.NURSE ---
0200 IV to R forearm noted to be infiltrated. IV removed and new IV placed in L Fa with 2 attempts, 22 ga.
--- NOTE | 2021-10-31 04:19 | PC.NURSE ---
Pt noted to be flushed, temp 99.0. covers removed. Room noted to be very warm at this time. Will monitor.
--- NOTE | 2021-10-31 05:53 | PC.NURSE ---
Summary IV to R forearm infiltrated, IV restarted to L fa. Woody remains intact draining dark zara urine. Pt had low grade temperature this am but room was very warm, covers removed. Cardizem increased to 7.5 mg/hr per provider conversation.
[2021-10-31 06:59] LABS: Basophils % 0.2 %; Hematocrit 31.3 % (37.0-47.0); Hemoglobin 9.9 g/dL (11.5-15.3); Lymphocytes # 1.7 10^3/uL (0.8-4.8); Lymphocytes % 7.1 %; Mean Corpuscular HGB Conc 31.6 g/dL (30.0-36.0); Mean Corpuscular Hemoglobin 26.5 pg (28.0-34.0); Mean Corpuscular Volume 83.7 fl (81-99); Monocytes # 1.9 10^3/uL (0.2-0.9); Neutrophils # 20.37 10^3/uL (1.8-7.7); Neutrophils % 84.2 %; Nucleated Red Blood Cells % 0.1 %; Platelet Count 236 10^3/cmm (130-400); Red Blood Count 3.74 10^6/uL (4.1-5.3); Red Cell Distribution Width 19.3 % (12.1-15.1); White Blood Count 24.2 10^3/uL (4.0-10.0)
[2021-10-31 07:19] LABS: Alanine Aminotransferase 33 U/L (0-33); Albumin Level 2.9 g/dL (3.5-5.2); Alkaline Phosphatase 169 IU/L (35-105); Anion Gap 15.9 (5-19); Aspartate Amino Transferase 45 U/L (0-32); Blood Urea Nitrogen 20 mg/dL (8-23); Calcium 8.4 mg/dL (8.5-10.5); Carbon Dioxide 17 mmol/L (22-29); Chloride 111 mmol/L (98-107); Globulin 3.1 g/dL (1.3-4.6); Glucose 104 mg/dL (65-115); Osmolality Calculated 293 mOsm/kg (285-295); Potassium 3.9 mmol/L (3.5-5.1); Sodium 140 mmol/L (136-145)
[2021-10-31] MEDS: sodium chloride 0.9% 1,000 ML 30 ML IV (07:50)
--- NOTE | 2021-10-31 08:37 | SUR.OPER ---
pt given 4ml 1% lidocaine locally into abdomen. lidocaine supplied with standard peg kit.
--- NOTE | 2021-10-31 08:57 | ANE.PACU2 ---
Inpatient post-anesthesia follow up: Vital signs: Temperature 100.7 F Pulse Rate 104 Respiratory Rate 22 Blood Pressure 142/63 Pulse Oximetry 94 Oxygen Delivery Me thod Nasal Cannula Oxygen Flow Rate 3 Fraction of Inspir ed Oxygen 21
--- NOTE | 2021-10-31 12:49 | PC.NUTR ---
Pt is currently NPO. If proceed with PEG tube placement, recommend consideration of Jevity 1.2 to start at 10 ml/hr - assuming continuous drip - advancing as tolerated until goal rate of 40 ml/hr is reached, with FW flushes of 120 ml Q4H or per MD discretion. See RD assessment for further details.
--- NOTE | 2021-10-31 14:18 | PM.PN ---
Subjective Subjective: Interval history: Patient was seen and examined this morning, heart rate is better controlled, continue to be in A. fib, low-grade temperature spike last night: Noted T-max:100.7, leukocytosis: WBC count increased to : 24, could be some contribution from dexamethasone, which has been stopped now. Medications: Reviewed: Yes Medication Review Details: Generic Name Dose Route Start Last Admin Trade Name Freq PRN Reason Stop Dose Admin Aspirin 300 mg 10/29/21 09:00 10/29/21 09:34 Aspirin 300 Mg S upp [place] 300 mg DAILY TAWANNA Administration Dexamethasone 6 mg 10/28/21 19:45 10/28/21 21:46 Dexamethasone 10 Mg/Ml Inj IVP 6 mg Q24H TAWANNA Administration Enoxaparin Sodium 40 mg 10/29/21 14:00 10/29/21 15:25 Enoxaparin 40 Mg /0.4 Ml Syringe SUBCUT 40 mg Q24H TAWANNA Administration Dextrose/Sodium Ch loride 1,000 mls @ 50 ml s/hr 10/28/21 14:00 10/29/21 10:20 Dextrose 5%-Sod Chloride 0.9% IV 50 mls/hr .Q20H TAWANNA Administration Labetalol HCl 10 mg 10/29/21 07:58 10/29/21 08:06 Labetalol 5 Mg/M l Sdv 20ml IVP 10 mg Q4H PRN Administration HYPERTENSION Metoprolol Tartrat e 2.5 mg 10/29/21 04:16 10/29/21 04:27 Metoprolol Tartr ate 1 Mg/1 Ml Sdv 5 Ml IVP 2.5 mg Q4H PRN Administration HYPERTENSION Vitals/I&O/Wt Last Vital Signs Temp 99.5 F 10/31/21 12:00 Pulse 103 H 10/31/21 12:00 Resp 18 10/31/21 12:00 BP 115/54 10/31/21 12:00 Pulse Ox 95 10/31/21 12:00 10/30/21 10/31/21 10/31/21 22:59 06:59 14:59 Intake Total 25.667 / 25.667 1082.375 / 1082.375 Output Total 500 / 500 275 / 775 0 / 0 Balance -474.333 / -474.333 -275 / -002.151 1734.375 / 1082.375 Physical Exam Narrative: EXAM NARRATIVE: GCS : 10 Const: COMMON NORMALS: patient oriented x3 HENMT: COMMON NORMALS: normocephalic and atraumatic HEAD & SCALP: normocephalic and atraumatic Resp: COMMON NORMALS: clear to auscultation bilaterally EFFORT & INSPECTION: Yes symmetric chest movement AUSCULTATION: clear to auscultation bilaterally Cardio: COMMON NORMALS: regular rate, regular rhythm, S1 normal heart sound present, S2 normal heart sound present, No gallops present (Cardio), No murmurs present (Cardio), No rub (Cardio) and Peripheral pulses 2+ throughout RATE: regular rate RHYTHM: regular rhythm HEART SOUNDS: S1 normal heart sound present and S2 normal heart sound present PERIPHERAL PULSES: Peripheral pulses 2+ throughout GI: COMMON NORMALS: Normal to inspection, nondistended, normoactive bowel sounds present, Soft to palpation, non-tender, No hepatosplenomegaly present and no masses AUSCULTATION: Yes normoactive bowel sounds PALPATION: Yes Soft to palpation and Yes No hepatosplenomegaly present RECTAL EXAM: deferred Extremity: COMMON NORMALS: no clubbing, cyanosis or edema and no pedal edema Neuro: COMMON NORMALS: patient oriented x3 Urinary Catheter Management^: Woody: Cath Placed During This Visit: yes Reason for Continuing Indwelling Catheter: Other Urinary Catheter Date of Insertion: 10/28/21 Urinary Catheter Time of Insertion: 10:52 Data : 10/31/21 06:15 10/31/21 06:15 Micro: Microbiology 10/28/21 10:25 Urine Culture - Final Urine,Clean Catch Escherichia coli A&P Assessment and plan (1) Cerebrovascular accident: Status: Acute (2) Atrial fibrillation with RVR: Status: Acute (3) CAD (coronary artery disease): Status: Acute (4) HTN (hypertension): Status: Acute (5) UTI (urinary tract infection): Status: Acute Additional A&P Information 71 year old female with past medical history of HTN, coronary artery disease status post stent, Atrial fibrillation, not on any anti-coagulation chronic migraine , detention resident was brought in by EMS with after her roommate found her slumped over on the toilet this morning. 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 #Acute CVA: CT head without contrast: No acute intracranial hemorrhage or edema. CT angio headneck: No significant cervical carotid stenosis or atherosclerosis. Small amount of plaque in the LEFT proximal ICA.Complete occlusion with thrombus involving the distal LEFT M1 segment. Small amount of edema within the LEFT MCA territory noted on the postcontrast imaging. EKG: Atrial fibrillation 2D echo: Normal left ventricular cavity size. Normal left ventricular systolic function. Left ventricular ejection fraction is estimated at 55-60 %. This study is inadequate for estimation of regional wall motion normality. Mild mitral and tricuspid valve regurgitation. Moderate pulmonary hypertension with pulmonary artery pressure estimated at [address] abdomen and pelvis with IV contrast: Given the history of gastric surgery in the past, for better delineation of the anatomy: Stomach and bowel: Surgical sutures seen about the stomach. Continue telemetry monitoring, Aspirin per rectal Was on Dexamethasone 6 mg IV daily for cerebral edema Started on Primaxin on 10/31, for possible aspiration pneumonia. Permissive hypertension Speech and swallow evaluation s/p PEG tube placement: Nutrition consult PT OT evaluation Currently n.p.o. #Atrial fibrillation with RVR: Patient received digoxin to 250 mcg IV x1 dose Currently she is on Cardizem drip fixed rate. Will Transition to Cardizem through PEG tube Heart rate is better controlled. #UTI: Urine culture E. coli: Pansensitive #History of coronary artery disease # CODE STATUS: AND #Currently awaiting detention placement Attestations Medical Necessity Statement*: Patient is to be in hospital for management of acute CVA, awaiting detention placement. Coding Level of Care Code Acute Meat Cooler for Rogelio Sultana Diagnoses Cerebrovascular accident I63.9 Atrial fibrillation with RVR I48.91 CAD (coronary artery disease) I25.10 HTN (hypertension) I10 UTI (urinary tract infection) N39.0
--- NOTE | 2021-10-31 15:25 | PC.SOCIAL ---
IMM UPDATED IMM initialed and dated and copy given to patient
[2021-10-31] MEDS: famotidine 20 mg/2 mL INJ IVP (16:44)
[2021-11-01] VITALS (17 sets, daily range): BP systolic 119–157; BP diastolic 54–86; PULSE 90–104; RESP 17–24; TEMP 36.5–37.1; O2SAT 89–97
[2021-11-01] MEDS: sodium chloride 0.9% 1,000 ML 30 ML IV (02:20)
[2021-11-01] MEDS: ipratropium-albuterol 3 mL Neb INHALATION ×4 (02:40→21:40)
[2021-11-01] MEDS: famotidine 20 mg/2 mL INJ IVP (06:48)
[2021-11-01] MEDS: aspirin 300 mg Supp PR (09:14)
--- NOTE | 2021-11-01 11:20 | PC.NUTR ---
MD ordered TF of Jevity 1.2 starting @ 10 mls/hr with 100 ml FW flushes Q4H, to be titrated by Dietitian. Recommend advancing TF 10 mls Q8H as tolerated, until goal rate of Jevity 1.2 @ 40 ml/hr is reached. Details in RD assessment.
[2021-11-01] MEDS: dilTIAZem 30 mg Tablet PEG-TUBE ×3 (11:59→22:01)
--- NOTE | 2021-11-01 13:48 | PM.PN ---
Subjective Subjective: Interval history: Patient was seen this morning, she opens her eyes to her names, but does not follow her command, she leans to the right, has right-sided neglect, nonverbal Vitals/I&O/Wt Last Vital Signs Temp 98.8 F 11/01/21 11:36 Pulse 96 11/01/21 11:36 Resp 22 H 11/01/21 11:36 BP 149/82 11/01/21 11:36 Pulse Ox 94 11/01/21 12:19 10/31/21 11/01/21 11/01/21 22:59 06:59 14:59 Intake Total 200 / 1282.375 125 / 1407.375 200 / 200 Output Total 0 / 0 Balance 200 / 1282.375 125 / 1407.375 200 / 200 Physical Exam Narrative: EXAM NARRATIVE: Nonverbal, right-sided neglect, does open her eyes at times, does have spontaneous movement of left upper extremity, does not follow commands, Resp: COMMON NORMALS: normal respiratory effort, No retractions, No use of accessory muscles and clear to auscultation bilaterally AUSCULTATION: clear to auscultation bilaterally Cardio: COMMON NORMALS: regular rate, regular rhythm, S1 normal heart sound present and S2 normal heart sound present RATE: regular rate RHYTHM: regular rhythm HEART SOUNDS: S1 normal heart sound present and S2 normal heart sound present GI: COMMON NORMALS: Normal to inspection, nondistended, normoactive bowel sounds present, Soft to palpation and non-tender PALPATION: Yes Soft to palpation : COMMON NORMALS: Yes no CVA tenderness BLADDER/KIDNEY EXAM: Yes no CVA tenderness Back/Pelvis: COMMON NORMALS: no CVA tenderness Extremity: COMMON NORMALS: no pedal edema Urinary Catheter Management^: Woody: Cath Placed During This Visit: yes Reason for Continuing Indwelling Catheter: Other Urinary Catheter Date of Insertion: 10/28/21 Urinary Catheter Time of Insertion: 10:52 Data : 10/31/21 06:15 10/31/21 06:15 A&P Assessment and plan (1) Cerebrovascular accident: Status: Acute (2) Atrial fibrillation with RVR: Status: Acute (3) CAD (coronary artery disease): Status: Acute (4) HTN (hypertension): Status: Acute (5) UTI (urinary tract infection): Status: Acute Additional A&P Information 71 year old female with past medical history of HTN, coronary artery disease status post stent, Atrial fibrillation, not on any anti-coagulation chronic migraine , shelter resident was brought in by EMS with after her roommate found her slumped over on the toilet this morning. 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 #Acute CVA: CT head without contrast: No acute intracranial hemorrhage or edema. CT angio headneck: No significant cervical carotid stenosis or atherosclerosis. Small amount of plaque in the LEFT proximal ICA.Complete occlusion with thrombus involving the distal LEFT M1 segment. Small amount of edema within the LEFT MCA territory noted on the postcontrast imaging. EKG: Atrial fibrillation 2D echo: Normal left ventricular cavity size. Normal left ventricular systolic function. Left ventricular ejection fraction is estimated at 55-60 %. This study is inadequate for estimation of regional wall motion normality. Mild mitral and tricuspid valve regurgitation. Moderate pulmonary hypertension with pulmonary artery pressure estimated at [address] abdomen and pelvis with IV contrast: Given the history of gastric surgery in the past, for better delineation of the anatomy: Stomach and bowel: Surgical sutures seen about the stomach. Continue telemetry monitoring, Aspirin 81 mg, atorvastatin Was on Dexamethasone 6 mg IV daily for cerebral edema, which has been discontinued Started on Primaxin on 10/31, for possible aspiration pneumonia. Permissive hypertension Speech and swallow evaluation s/p PEG tube placement: Nutrition consult PT OT evaluation PEG tube in place, start PEG tube feedings at 10 cc an hour, with free water flushes 100 cc every 4 hours, SCDs for DVT prophylaxis Lovenox currently relatively contraindicated given large embolic CVA #Atrial fibrillation with RVR: Patient received digoxin to 250 mcg IV x1 dose Currently she is on Cardizem drip fixed rate. Will Transition to Cardizem through PEG tube Heart rate is better controlled. Given the severity and how extensive patient's CVA is, will hold off on anticoagulation for now #UTI: Urine culture E. 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
[2021-11-01] MEDS: famotidine 20 mg Tablet PEG-TUBE (17:53)
[2021-11-01] MEDS: atorvastatin 40 mg Tablet PEG-TUBE (22:01)
[2021-11-02] VITALS (9 sets, daily range): BP systolic 116–157; BP diastolic 63–81; PULSE 88–108; RESP 16–24; TEMP 36.7–37.2; O2SAT 92–98
[2021-11-02] MEDS: ipratropium-albuterol 3 mL Neb INHALATION ×2 (02:29→09:34)
[2021-11-02] MEDS: dilTIAZem 30 mg Tablet PEG-TUBE ×2 (05:18→11:28)
[2021-11-02 06:02] LABS: Basophils % 0.2 %; Hematocrit 35.7 % (37.0-47.0); Hemoglobin 10.2 g/dL (11.5-15.3); Lymphocytes # 1.5 10^3/uL (0.8-4.8); Lymphocytes % 7.2 %; Mean Corpuscular HGB Conc 28.6 g/dL (30.0-36.0); Mean Corpuscular Hemoglobin 27.1 pg (28.0-34.0); Mean Corpuscular Volume 94.7 fl (81-99); Mean Platelet Volume 12.9 fL (7.4-10.4); Monocytes # 1.5 10^3/uL (0.2-0.9); Monocytes % 7.4 %; Neutrophils # 17.12 10^3/uL (1.8-7.7); Neutrophils % 84.5 %; Nucleated Red Blood Cells # 0.3 /100WBC; Nucleated Red Blood Cells % 1.3 %; Platelet Count 214 10^3/cmm (130-400); Red Blood Count 3.77 10^6/uL (4.1-5.3); Red Cell Distribution Width 21.6 % (12.1-15.1); White Blood Count 20.3 10^3/uL (4.0-10.0)
[2021-11-02 06:27] LABS: Alanine Aminotransferase 90 U/L (0-33); Albumin Level 2.4 g/dL (3.5-5.2); Alkaline Phosphatase 247 IU/L (35-105); Anion Gap 16.5 (5-19); Aspartate Amino Transferase 185 U/L (0-32); Blood Urea Nitrogen 20 mg/dL (8-23); Carbon Dioxide 16 mmol/L (22-29); Chloride 113 mmol/L (98-107); Globulin 3.2 g/dL (1.3-4.6); Glucose 132 mg/dL (65-115); Magnesium 2.1 mg/dL (1.7-2.3); Osmolality Calculated 298 mOsm/kg (285-295); Potassium 3.5 mmol/L (3.5-5.1); Sodium 142 mmol/L (136-145); Total Bilirubin 1.4 mg/dL (0.15-1.2); Total Protein 5.6 g/dL (6.6-8.7)
[2021-11-02] MEDS: aspirin 81 mg Chew Tablet PEG-TUBE (09:01)
[2021-11-02] MEDS: famotidine 20 mg Tablet PEG-TUBE (09:01)
--- NOTE | 2021-11-02 11:11 | PC.SOCIAL ---
IMM Updated Updated pt on IMM. No questions voiced. Provided pt a copy. Initialed, dated, & timed copy in chart.
--- NOTE | 2021-11-02 11:13 | US_ITS ---
WS: [id number] ULTRASOUND ABDOMEN LIMITED CLINICAL INFORMATION: elevated lft. alkphos COMPARISON: None. FINDINGS: Technically difficult examination. Limited study Liver Size: Normal. Craniocaudal length: 14.5 cm. Echogenicity: Normal. Surface nodularity: None. Mass (size and location): None. Bile ducts Intrahepatic ducts: Normal. Common bile duct diameter: 0.5 cm. Gallbladder Not well visualized appears normal Gallstones: None. Gallbladder sludge: None. Gallbladder wall thickening: None. Pericholecystic fluid: None. Sonographic Oliva sign: Absent. Pancreas Normal as visualized.. 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 Hydronephrosis: None. Size: 8.6 cm Abdominal aorta and IVC Visualized portions are normal. Ascites: None. US/US gall bladder [id number] IMPRESSION: Technically difficult examination 1. Normal liver. 2. Gallbladder is not well-visualized but appears normal and contracted. Rafia l common bile duct. 3. Horseshoe kidneys. No hydronephrosis in right kidney. 4. Gastrostomy tube is noted.
--- NOTE | 2021-11-02 11:21 | PM.DCS ---
Discharge Providers Date of Admission: 10/28/21 17:34 Date of Discharge: November 02, 2021 Attending Provider at Admission: Cleveland Sands MD Attending Provider at Discharge: Aj Renner MD Primary Care Provider: Raul Schaeffer MD Diagnoses at Discharge Discharge Diagnosis (1) Cerebrovascular accident: Status: Acute (2) Atrial fibrillation with RVR: Status: Acute (3) CAD (coronary artery disease): Status: Acute (4) HTN (hypertension): Status: Acute (5) UTI (urinary tract infection): Status: Acute Reason for Visit Reason for Visit: STROKE LIKE SYMPTOMS Hospital Course Hospital Course This is a 71-year-old female with a past medical history of hypertension, CAD status post stenting, atrial fibrillation not on anticoagulation, who presents to [facility] as she was found nonresponsive at [facility], with right-sided neglect, nonverbal Patient was admitted to [facility] for acute left MCA infarct, CT of the head did not show any acute intracranial hemorrhage or edema, CT angiogram of the head showed complete occlusion with thrombus above the distal left M1 segment, small amount of edema, EKG showed atrial fibrillation. Patient was admitted received heart rate control with digoxin, transition to Cardizem, allow for permissive hypertension, IV fluids, clinically monitored. 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 Patient will be discharged to the [place] [facility] with PEG tube feedings, continues to feedings, Jevity 1.2 at 40 cc an hour and free water flushes 100 cc every 4 hours. In terms of anticoagulation, given that patient has not had a large MCA distribution stroke, decision was made to start her on anticoagulation after 3 to 4 weeks given risk of hemorrhagic transformation. Nonetheless patient will be discharged on aspirin, statin. Follow-up with neurology in 3 to 4 weeks. Decision to start Eliquis 5 mg twice daily in 3 to 4 weeks. There were also concerns for aspiration, managed with Primaxin, discharged on cefdinir For atrial fibrillation discharged on Cardizem She had a UTI, discharged on cefdinir She is status post splenectomy, received flu vaccine and PPSV23 vaccination in-house Physical Exam Const: COMMON NORMALS: no acute distress ORIENTATION/CONSCIOUSNESS: Yes awake and Yes oriented to time; not oriented to person and not oriented to place Resp: COMMON NORMALS: normal respiratory effort, No retractions, No use of accessory muscles and clear to auscultation bilaterally AUSCULTATION: clear to auscultation bilaterally Cardio: COMMON NORMALS: regular rate, S1 normal heart sound present and S2 normal heart sound present RATE: regular rate RHYTHM: abnormal rhythm irregularly irregular HEART SOUNDS: S1 normal heart sound present and S2 normal heart sound present GI: COMMON NORMALS: Normal to inspection, nondistended, normoactive bowel sounds present and non-tender OTHER: Abdominal binder in place Extremity: COMMON NORMALS: no pedal edema Neuro: SENSORIUM/ORIENTATION: No oriented to person, No oriented to place and Yes oriented to time Psych: COMMON NORMALS: mental status grossly normal Urinary Catheter Management^: Woody: Cath Placed During This Visit: yes Reason for Continuing Indwelling Catheter: Other Urinary Catheter Date of Insertion: 10/28/21 Urinary Catheter Time of Insertion: 10:52 Discharge Data Data Completed and Pending: Completed Studies During Hospitalization Category Date Time Status CT abdomen pelvis w con* [id number] Rout ine Cat Scan 10/29/21 16:[address] angio headneck * [id number] Urge nt Cat Scan 10/28/[address] head wo con* [id number] Stat Cat Scan 10/28/21 09:19 Completed XR chest 1V [place] ble [id number] Routine Exams 10/30/21 11:40 Completed XR chest 1V mil[place] ble [id number] Stat Exams 10/28/21 09:19 Completed CV. echo complete * [id number] Routine Ultrasound 10/29/21 08:12 Completed Pending at discharge Category Date Time Status COVID OZH [Campos virus PCR] Stat Lab 11/02/21 08:34 Ordered Complete Blood Co unt w/Auto AM LABS Lab 11/03/21 04:00 Ordered Complete Blood Co unt w/Auto AM LABS Lab 11/04/21 04:00 Ordered Comprehensive Met abolic Panel AM LA BS Lab 11/03/21 04:00 Ordered Comprehensive Met abolic Panel AM LA BS Lab 11/04/21 04:00 Ordered Magnesium AM LABS Lab 11/03/21 04:00 Ordered Magnesium AM LABS Lab 11/04/21 04:00 Ordered Phosphorus AM LAB S Lab 11/03/21 04:00 Ordered Phosphorus AM LAB S Lab 11/04/21 04:00 Ordered Pathology: Surgic al [PTH] Routine Pth 11/01/21 10:07 Received US gall bladder 7 [id number] Stat Ultrasound 11/02/21 11:13 Ordered Labs from last 24 hours 11/02/21 11/02/21 05:42 05:42 WBC 20.3 H RBC 3.77 L Hgb 10.2 L Hct 35.7 L MCV 94.7 MCH 27.1 L MCHC 28.6 L RDW 21.6 H Plt Count 214 MPV 12.9 H Neut % (Auto) 84.5 Lymph % (Auto) 7.2 Dewey % (Auto) 7.4 Eos % (Auto) 0.0 Baso % (Auto) 0.2 Neut # (Auto) 17.12 H Lymph # (Auto) 1.5 Dewey # (Auto) 1.5 H Eos # (Auto) 0.0 Baso # (Auto) 0.0 Nucleated RBC % (a uto) 1.3 Nucleated RBCs # 0.3 Sodium 142 Potassium 3.5 Chloride 113 H Carbon Dioxide 16 L Anion Gap 16.5 BUN 20 Creatinine 0.5 GFR Calculation Not Reportable Glucose 132 H Calculated Osmolal ity 298 H Calcium 9.0 Phosphorus 2.0 L Magnesium 2.1 Total Bilirubin 1.4 H AST 185 H ALT 90 H Alkaline Phosphata se 247 H Total Protein 5.6 L Albumin 2.4 L Globulin 3.2 Vitals: Last Vital Signs Temp 98.0 F 11/02/21 07:55 Pulse 105 H 11/02/21 09:40 Resp 16 11/02/21 09:39 BP 137/69 11/02/21 07:55 Pulse Ox 98 11/02/21 09:39 Discharge Plan Discharge Patient Disposition: Xfer SNF Condition: Stable Prescriptions: New atorvastatin 40 mg Tablet 40 mg peg-tube BEDTIME 30 Days Qty: 30 RF: 0 famotidine 20 mg Tablet 20 mg peg-tube BID 30 Days Qty: 60 RF: 0 Children's Aspirin 81 mg Tablet,Chewable 81 mg peg-tube DAILY 30 Days Qty: 30 RF: 0 diltiazem HCl 30 mg Tablet 30 mg peg-tube Q6H 30 Days Qty: 120 RF: 0 cefdinir 300 mg capsule 300 mg PO BID 5 Days Qty: 10 RF: 0 Continued spironolactone 25 mg tablet 25 mg PO DAILY@0800 RF: 0 furosemide 40 mg tablet 40 mg PO DAILY PRN (Reason: Edema) RF: 0 pantoprazole 40 mg Tablet,Delayed Release (Dr/Ec) 40 mg PO DAILY@0800 RF: 0 tizanidine 2 mg Tablet 2 mg PO BEDTIME RF: 0 tramadol 50 mg Tablet 100 mg PO BID PRN (Reason: Pain) RF: 0 topiramate 25 mg tablet 25 mg PO BID RF: 0 magnesium hydroxide [Milk of Magnesia] 400 mg/5 mL Suspension 30 ml PO DAILY PRN (Reason: Constipation) RF: 0 nitroglycerin 0.4 mg tablet, sublingual 0.4 mg sublingual Q5M PRN (Reason: Chest Pain) RF: 0 docusate sodium [Stool Softener] 100 mg Capsule 300 mg PO DAILY PRN (Reason: Constipation) RF: 0 fluticasone propionate 50 mcg/actuation [place],Suspension 1 - 2 spray INTRANASAL DAILY PRN (Reason: Allergy Symptoms) RF: 0 Discontinued clopidogrel [Plavix] 75 mg tablet 75 mg PO DAILY@0800 RF: 0 propranolol 20 mg tablet See Rx Instructions .ROUTE .COMPLEX Qty: 60 RF: 0 atorvastatin 40 mg tablet 40 mg PO DAILY@2000 RF: 0 aspirin 81 mg tablet,delayed release (DR/EC) 81 mg PO DAILY@0800 RF: 0 metoprolol tartrate 25 mg tablet 12.5 mg PO BID RF: 0 Discharge Orders: Discharge Order (Routine); Ordered 11/02/21 Ordered By: Aj Renner Referrals: Raul Schaeffer MD [Primary Care Provider] - Discharge Diet: Cardiac Discharge Activity: Resume usual activity Patient Instructions: GI Discharge Instructions Activity Restrictions/Additional Instructions: - Monitor liver function studies, repeat complete metabolic panel tomorrow -Tube feeds -Continues tube feeds, Jevity 1.2, 40 cc an hour, free water flushes 100 cc every 4 hours -Patient had an embolic stroke, wait at least 3 to 4 weeks before starting Eliquis 5 mg twice daily -Follow-up with neurology in 3 to 4 weeks -PT OT, speech therapy at [facility] Discharge Attestations Time Spent in Discharge Care*: less than 30 min Quality Metrics Clinical Quality Measures During this hospital stay, did patient experience: Stroke Contraindication to Antithrombotic: Antithrombotic prescribed Contraindication to Anticoagulation: Medical contraindication Contraindication to Statin: Statin prescribed Coding Level of Care Code Acute Chg FW DC note Diagnoses Cerebrovascular accident I63.9 Atrial fibrillation with RVR I48.91 CAD (coronary artery disease) I25.10 HTN (hypertension) I10 UTI (urinary tract infection) N39.0
[2021-11-02] MEDS: pneumococcal (23 valent) SDV 0.5 mL IM (11:25)
[2021-11-02 11:29] LABS: Adenovirus Not Detected (NOT DETECT); Chlamydia Pneumoniae Not Detected (NOT DETECT); Coronavirus 229E,HKU1,NL63,OC4 Not Detected (NOT DETECT); Human Metapneumovirus Not Detected (NOT DETECT); Human Rhinovirus/Enterovirus Not Detected (NOT DETECT); Influenza A Not Detected (NOT DETECT); Influenza A H1 Not Detected (NOT DETECT); Influenza A H1-2009 Not Detected (NOT DETECT); Influenza A H3 Not Detected (NOT DETECT); Influenza B Not Detected (NOT DETECT); Mycoplasma Pneumoniae Not Detected (NOT DETECT); Parainfluenza Virus Type 1 Not Detected (NOT DETECT); Parainfluenza Virus Type 2 Not Detected (NOT DETECT); Parainfluenza Virus Type 3 Not Detected (NOT DETECT); Parainfluenza Virus Type 4 Not Detected (NOT DETECT); Respiratory Syncytial Virus A Not Detected (NOT DETECT); Respiratory Syncytial Virus B Not Detected (NOT DETECT); SARS-COV-2 Not Detected (NOT DETECT)
--- NOTE | 2021-11-02 13:05 | PC.NURSE ---
Report called to EARENSTINE Dempsey at [facility] and all questions answered.
--- NOTE | 2021-11-02 14:47 | PC.NURSE ---
Sister, Aissatou took watch home yesterday
== END 2021-11-02 14:47 | disposition home or self-care (01) | DRG 64 ==
LOC: ER 13:48 → MEDSURG 18:48
PROVIDERS: Surgery; Admitting Provider Internal Medicine; Emergency Provider Family Medicine; PCP Family Medicine; Visit Provider Family Medicine
PROC: 0DH63UZ Insertion of Feeding Device into Stomach, Percutaneous Approach (ICD-10-PCS; CPT 43246; principal; 2021-10-31 08:00)
DX: I63.312 Cerebral infarction due to thrombosis of left middle cerebral artery (principal); J69.0 Pneumonitis due to inhalation of food and vomit; N39.0 Urinary tract infection, site not specified; Z68.42 Body mass index [BMI] 45.0-49.9, adult; G81.90 Hemiplegia, unspecified affecting unspecified side; R40.4 Transient alteration of awareness; I48.91 Unspecified atrial fibrillation; I10 Essential (primary) hypertension; R29.727 NIHSS score 27; I25.10 Atherosclerotic heart disease of native coronary artery without angina pectoris; Z95.5 Presence of coronary angioplasty implant and graft; Z79.82 Long term (current) use of aspirin; Z90.81 Acquired absence of spleen; Z87.891 Personal history of nicotine dependence; Z98.84 Bariatric surgery status; I27.20 Pulmonary hypertension, unspecified; I34.0 Nonrheumatic mitral (valve) insufficiency; I07.1 Rheumatic tricuspid insufficiency; R13.10 Dysphagia, unspecified; K21.9 Gastro-esophageal reflux disease without esophagitis; E66.01 Morbid (severe) obesity due to excess calories; R47.01 Aphasia; R29.810 Facial weakness; R63.30 Feeding difficulties, unspecified; B96.20 Unspecified Escherichia coli [E. coli] as the cause of diseases classified elsewhere; K31.7 Polyp of stomach and duodenum; K29.70 Gastritis, unspecified, without bleeding; K44.9 Diaphragmatic hernia without obstruction or gangrene
CPT/HCPCS: 36415; 36416; 43246; 51702; 70450; 70496; 70498; 71045; 74177; 76705; 80053; 80306; 81001; 82962; 83735; 84100; 85025; 85610; 85730; 87077; 87086; 87186; 87635; 88305; 90471; 90686; 90732; 92507; 92523; 92526; 92610; 93005; 93306; 94640; 96360; 96361; 96372; 97110; 97161; 97530; 99285; J0696; J0743; J1100; J1160; J1650; J2704; J3490; J7030; J7608; Q9967

== ENCOUNTER 2022-01-02 01:14 | Emergency (ER) | payer MEDICARE, MEDICAID, SELFPAY ==
[2022-01-02 01:20] VITALS: BP 149/83; PULSE 103; RESP 16; TEMP 36.7; O2SAT 98
--- NOTE | 2022-01-02 03:11 | PC.NURSE ---
16Fr G-Tube placed by Dr. Hoff. Flushes easily.
--- NOTE | 2022-01-02 03:22 | W.ED.GENADLT ---
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 She presents after having pulled out her G-tube that is used for feeding and drug ministration she is nonverbal. She does not appear in pain. Bleeding to the site is controlled Onset (ago): hour(s) Location: abdomen Radiation: non-radiation Severity: mild Quality: other Relieving factors: other Exacerbating factors: other Associated symptoms: Deny fevers/chills Review of Systems General: Reports: ROS unobtainable due to mental status PFSH ED PFSH: Medical History Abnormal stress test Atrial fibrillation Chronic migraine GERD (gastroesophageal reflux disease) HTN (hypertension) Postmenopausal osteoporosis Syncope and collapse Surgical History H/O: hysterectomy Hx of tonsillectomy Post-splenectomy S/P cholecystectomy Family History Other Diabetes Hypertension Social History Smoking and tobacco status: former smoker Alcohol intake: never Physical Exam Const: COMMON NORMALS: no acute distress GENERAL APPEARANCE: not ill appearing NUTRITIONAL APPEARANCE: obese ORIENTATION/CONSCIOUSNESS: Yes awake HENMT: COMMON NORMALS: normocephalic, atraumatic and Normal external nose present HEAD & SCALP: normocephalic and atraumatic FACE & SINUS: face symmetric NOSE: Normal external nose present Eye: COMMON NORMALS: Equal, round and reactive pupils present and EOMs intact bilaterally PUPIL: Yes Equal, round and reactive pupils present Chest: COMMONS NORMALS: normal inspection of the chest Resp: COMMON NORMALS: normal respiratory effort, No use of accessory muscles and clear to auscultation bilaterally AUSCULTATION: clear to auscultation bilaterally Cardio: COMMON NORMALS: regular rate and regular rhythm RATE: regular rate RHYTHM: regular rhythm GI: COMMON NORMALS: Soft to palpation INSPECTION: No abdominal wall ecchymosis, No Abdominal wall edema and No abdominal distension PALPATION: Yes Soft to palpation and No Guarding due to palpation present (GI) OTHER: Tube site without laceration. Tiny amount of controlled bleeding. Tract appears intact Psych: ATTITUDE: Yes calm Procedures Feeding Tube Replacement Type of Tube: gastrostomy Insertion Site Prior to Procedure: clean Albanian Tube Size (F): 18 Balloon size (mL): 10 Verification of Placement: auscultation Tube Secured by: tape/dressing Patient Tolerated Procedure: well and no complications Course Vital Signs: Vital signs: Vital Signs Temperature 98.1 F 01/02/22 01:20 Pulse Rate 103 H 01/02/22 01:20 Respiratory Rate 16 01/02/22 01:20 Blood Pressure 149/83 01/02/22 01:20 Pulse Oximetry 98 01/02/22 01:20 MDM - General Adult Medical Decision Making Tube replaced with new tube. Flushed well. Auscultation confirms site. Discharge Plan Discharge Patient Disposition: Home Clinical Impression: Encounter for feeding tube placement Condition: Stable Prescriptions: No Action spironolactone 25 mg tablet 25 mg PO DAILY@0800 0RF furosemide 40 mg tablet 40 mg PO DAILY PRN (Reason: Edema) 0RF pantoprazole 40 mg Tablet,Delayed Release (Dr/Ec) 40 mg PO DAILY@0800 0RF tizanidine 2 mg Tablet 2 mg PO BEDTIME 0RF tramadol 50 mg Tablet 100 mg PO BID PRN (Reason: Pain) 0RF topiramate 25 mg tablet 25 mg PO BID 0RF magnesium hydroxide [Milk of Magnesia] 400 mg/5 mL Suspension 30 ml PO DAILY PRN (Reason: Constipation) 0RF nitroglycerin 0.4 mg tablet, sublingual 0.4 mg sublingual Q5M PRN (Reason: Chest Pain) 0RF docusate sodium [Stool Softener] 100 mg Capsule 300 mg PO DAILY PRN (Reason: Constipation) 0RF fluticasone propionate 50 mcg/actuation [place],Suspension 1 - 2 spray INTRANASAL DAILY PRN (Reason: Allergy Symptoms) 0RF Discharge Orders: Discharge ED (Routine); Ordered 01/02/22 Ordered By: Gonzalo Hoff Referrals: Raul Schaeffer MD [Primary Care Provider] - Activity Restrictions/Additional Instructions: Return for fever, problems with tube, any other concerning symptoms. Coding Level of Care Code ED Filenet P8 Developer for Chg 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
--- NOTE | 2022-01-02 06:22 | PC.NURSE ---
Called [facility] to give report. Spoke to Nurse usha.
== END 2022-01-02 06:10 | disposition home or self-care (01) ==
PROVIDERS: Emergency Provider Emergency Medicine; PCP Family Medicine
DX: Z43.1 Encounter for attention to gastrostomy (principal); I10 Essential (primary) hypertension; Z87.891 Personal history of nicotine dependence
CPT/HCPCS: 43762; 99282

== ENCOUNTER → 2022-01-19 13:27 | Outpatient (BNVA) | payer MEDICARE, MEDICAID, SELFPAY | PROVIDERS: PCP Family Medicine; Visit Provider Thoracic Surgery (Cardiothoracic Vascular Surgery) | DX: I96 Gangrene, not elsewhere classified (principal); L89.154 Pressure ulcer of sacral region, stage 4; Z87.891 Personal history of nicotine dependence | CPT/HCPCS: 11042; 11045; 87070; 87077; 87176; 87186; 87205; 99203; 99214 ==

== ENCOUNTER → 2022-01-26 10:44 | Outpatient (BNVA) | payer MEDICARE, MEDICAID, SELFPAY | PROVIDERS: PCP Family Medicine; Visit Provider Thoracic Surgery (Cardiothoracic Vascular Surgery) | DX: I96 Gangrene, not elsewhere classified (principal); L89.154 Pressure ulcer of sacral region, stage 4 | CPT/HCPCS: 11043; 11046 ==

== ENCOUNTER 2022-01-31 16:56 | Inpatient (IN) | payer MEDICARE, MEDICAID, SELFPAY ==
[2022-01-31] VITALS (15 sets, daily range): BP systolic 86–125; BP diastolic 53–99; PULSE 85–134; RESP 14–26; TEMP 36.7–36.8; O2SAT 90–98; BMI 37.1
--- NOTE | 2022-01-31 17:16 | XRR_ITS ---
PROCEDURE INFORMATION: Exam: XR Chest Exam date and time: 01/31/2022 5:30 PM Age: 71 years old Clinical indication: Pain; Other: Bed sore; Additional info: Dyspnea/cough TECHNIQUE: Imaging protocol: XR of the chest. Views: 1 view. COMPARISON: CR XR chest 1V portable [id number] 10/30/2021 12:17 PM FINDINGS: Lungs: Unchanged hyperinflation with mild fibrosis. No consolidation. Pulmonary vascularity is within normal limits. Pleural spaces: Unremarkable. No pleural effusion. No pneumothorax. Heart/Mediastinum: Unchanged cardiomegaly. Ectatic aorta. Bones/joints: No acute abnormality. Intraperitoneal space: Postoperative clips in the left upper quadrant are noted. XR/XR chest 1V portable [id number] IMPRESSION: No acute findings.
--- NOTE | 2022-01-31 17:19 | CTR_ITS ---
PROCEDURE INFORMATION: Exam: CT Abdomen And Pelvis With Contrast Exam date and time: 01/31/2022 6:26 PM Age: 71 years old Clinical indication: Other: Ulcer and bed sores; Prior surgery; Surgery date: 6+ months; Surgery type: Carmelina, splenectomy, hysterectomy; Additional info: Stage 4 pressure ulcer lumbar/posterior illiac crest TECHNIQUE: Imaging protocol: Computed tomography of the abdomen and pelvis with contrast. Radiation optimization: All CT scans at this facility use at least one of these dose optimization techniques: automated exposure control; mA and/or kV adjustment per patient size (includes targeted exams where dose is matched to clinical indication); or iterative reconstruction. Contrast material: OMNI 300; Contrast volume: 95 ml; Contrast route: INTRAVENOUS (IV); COMPARISON: CT abdomen pelvis w con* [id number] 10/29/2021 5:42 PM RADIATION DOSE METRICS: Total DLP (mGy-cm): 1556.67 FINDINGS: Tubes, catheters and devices: There is a gastrostomy tube in good position. Multiple postoperative clips are noted in the left upper quadrant. Liver: Unremarkable.No mass. Gallbladder and bile ducts: There has been a cholecystectomy. There is no common bile duct dilation. Pancreas: The pancreas is normal. Spleen: There has been a splenectomy. Adrenal glands: The adrenal glands are normal. Kidneys and ureters: There is a horseshoe kidney. No hydronephrosis or nephrolithiasis. Stomach and bowel: There is no evidence of intestinal perforation or obstruction. Extensive diverticulosis is present in the distal colon. There is no evidence of colitis/diverticulitis. There is a large amount of stool in the rectum without impaction. Appendix: The appendix is not definitively identified. However, there is no CT evidence of a right lower quadrant inflammatory process. Intraperitoneal space: Unremarkable. No free air. No significant fluid collection. Arteries: The aorta demonstrates mild atherosclerotic calcification. Lymph nodes: Unremarkable.No enlarged lymph nodes. Urinary bladder: The bladder is normal. Reproductive: There has been a hysterectomy. Bones/joints: There is no new bony destruction or osteomyelitis of the right ilium. Severe degenerative changes in the spine, right hip and moderate degenerative changes in the remaining pelvis and left hip are stable. No acute bony abnormality. Soft tissues: There is a large decubitus ulcer overlying the right lower flank/upper buttock extending to the medial aspect of the right iliac crest. There is skin thickening and induration of the adjacent subcutaneous fat compatible with cellulitis without fluid collection or abscess. Multiple calcified nodules are noted in the subcutaneous fat of both buttock compatible with prior injections. Other findings: No deep extension or sinus tract is identified outside of the large open defect. CT/CT abdomen pelvis w con* [id number] IMPRESSION: 1. There is a new large decubitus ulcer overlying the lower right flank/upper right buttock with large defect extending to the outer cortex of the right medial ilium. No fluid collection or abscess. 2. There is no new bony destruction or osteomyelitis of the right ilium. The right ilium especially the outer cortex is unchanged compared to the prior exam. 3. No acute abnormality within the abdomen or pelvis. Incidental findings are noted as above and are unchanged.
--- NOTE | 2022-01-31 17:21 | ED_ITS ---
HPI - Wound/Laceration General: Chief Complaint: Wound/Laceration Stated Complaint: ulcer, bed sore Time Seen by Provider: 01/31/22 16:57 Source: RN notes reviewed and old records reviewed Mode of arrival: EMS Limitations: altered mental status History of Present Illness: 71-year-old female presents emergency room she is obtunded at this time. She has a known large stage IV sacral ulcer per her report. She is also in A. fib with RVR. She recently had cultures done she has been tachycardic and poorly responsive she usually sees Dr. Yeager according to old wound care notes. Cultures dated 01/19 are in the chart and were reviewed. Onset (ago): unknown Location: back Place: other ([facility]) Context: other (Decubitus ulcer from prolonged immobilization) Review of Systems General: Reports: ROS unobtainable due to mental status PFS ED PFSH: Medical History Abnormal stress test Atrial fibrillation CAD (coronary artery disease) Chronic migraine GERD (gastroesophageal reflux disease) HTN (hypertension) Postmenopausal osteoporosis Syncope and collapse Surgical History H/O: hysterectomy Hx of tonsillectomy Post-splenectomy S/P cholecystectomy Stented coronary artery Family History Other Diabetes Hypertension Social History Smoking and tobacco status: former smoker Alcohol intake: never Physical Exam HENMT: COMMON NORMALS: normocephalic and atraumatic HEAD & SCALP: normocephalic and atraumatic Neck/C-Spine: COMMON NORMALS: no JVD Resp: COMMON NORMALS: normal respiratory effort, No retractions, No use of accessory muscles and clear to auscultation bilaterally AUSCULTATION: clear to auscultation bilaterally Cardio: COMMON NORMALS: no JVD and No murmurs present (Cardio) RATE: tachycardic RHYTHM: abnormal rhythm irregularly irregular GI: COMMON NORMALS: Soft to palpation and No hepatosplenomegaly present AUSCULTATION: Yes normoactive bowel sounds PALPATION: Yes Soft to palpation, No Tenderness to palpation present (GI), No Guarding due to palpation present (GI) and Yes No hepatosplenomegaly present Extremity: COMMON NORMALS: normal to inspection, capillary refill normal, no clubbing, cyanosis or edema, no calf tenderness and no pedal edema Skin: OTHER: Large decubitus ulcer over the right superior iliac crest in the lower lumbar area there is wound packing in place very foul-smelling edges are irritated red and erythematous. Course Vital Signs: Vital signs: Vital Signs Temperature 98.2 F 01/31/22 17:38 Pulse Rate 110 H 01/31/22 22:00 Respiratory Rate 20 H 01/31/22 20:42 Blood Pressure 98/60 01/31/22 20:42 Pulse Oximetry 98 01/31/22 20:42 MDM - Wound/Laceration Medical Decision Making Patient appears to be septic on arrival. She is tachycardic with an elevated white count. She is also in atrial fibrillation with rapid ventricular response. Started on Cardizem and titrated up discussed with Dr. Kerr orders written. Of also discussed with Dr. Yeager he will see the patient during hospitalization. Medical Records I reviewed the patient's medical records. Lab Data I reviewed the patient's lab results. : 01/31/22 16:00 01/31/22 16:00 Radiology Impressions Chest X-Ray 01/31/22 17:16 IMPRESSION: No acute findings. Abdomen/Pelvis CT 01/31/22 17:19 IMPRESSION: 1. There is a new large decubitus ulcer overlying the lower right flank/upper right buttock with large defect extending to the outer cortex of the right medial ilium. No fluid collection or abscess. 2. There is no new bony destruction or osteomyelitis of the right ilium. The right ilium especially the outer cortex is unchanged compared to the prior exam. 3. No acute abnormality within the abdomen or pelvis. Incidental findings are noted as above and are unchanged. Laboratory Results WBC 14.0 10^3/uL (4.0-10.0) H 01/31/22 16:00 RBC 4.11 10^6/uL (4.1-5.3) 01/31/22 16:00 Hgb 11.5 g/dL (11.5-15.3) 01/31/22 16:00 Hct 35.0 % (37.0-47.0) L 01/31/22 16:00 MCV 85.2 fl (81-99) 01/31/22 16:00 MCH 28.0 pg (28.0-34.0) 01/31/22 16:00 MCHC 32.9 g/dL (30.0-36.0) 01/31/22 16:00 RDW 17.2 % (12.1-15.1) H 01/31/22 16:00 Plt Count 488 10^3/cmm (130-400) H 01/31/22 16:00 MPV 11.9 fL (7.4-10.4) H 01/31/22 16:00 Neut % (Auto) 72.8 % 01/31/22 16:00 Lymph % (Auto) 15.5 % 01/31/22 16:00 Dixon % (Auto) 11.0 % 01/31/22 16:00 Eos % (Auto) 0.1 % 01/31/22 16:00 Baso % (Auto) 0.3 % 01/31/22 16:00 Neut # (Auto) 10.19 10^3/uL (1.8-7.7) H 01/31/22 16:00 Lymph # (Auto) 2.2 10^3/uL (0.8-4.8) 01/31/22 16:00 Dixon # (Auto) 1.5 10^3/uL (0.2-0.9) H 01/31/22 16:00 Eos # (Auto) 0.0 10^3/uL (0.0-0.8) 01/31/22 16:00 Baso # (Auto) 0.0 10^3/uL (0.0-0.1) 01/31/22 16:00 Nucleated RBC % (auto) 0 % 01/31/22 16:00 Nucleated RBCs # 0.0 /100WBC 01/31/22 16:00 Sodium 130 mmol/L (136-145) L 01/31/22 16:00 Potassium 4.5 mmol/L (3.5-5.1) 01/31/22 16:00 Chloride 96 mmol/L (98-107) L 01/31/22 16:00 Carbon Dioxide 25 mmol/L (22-29) 01/31/22 16:00 Anion Gap 13.5 (5-19) 01/31/22 16:00 BUN 14 mg/dL (8-23) 01/31/22 16:00 Creatinine 0.4 mg/dL (0.5-0.9) L 01/31/22 16:00 GFR Calculation Not Reportable 01/31/22 16:00 Glucose 116 mg/dL (65-115) H 01/31/22 16:00 Calculated Osmolality 271 mOsm/kg (285-295) L 01/31/22 16:00 Lactic Acid 1.6 mmol/L (0.5-2.2) 01/31/22 17:50 Calcium 9.1 mg/dL (8.5-10.5) 01/31/22 16:00 Magnesium 1.9 mg/dL (1.7-2.3) 01/31/22 16:00 Total Bilirubin 0.6 mg/dL (0.15-1.2) 01/31/22 16:00 AST 39 U/L (0-32) H 01/31/22 16:00 ALT 24 U/L (0-33) 01/31/22 16:00 Alkaline Phosphatase 148 IU/L (35-105) H 01/31/22 16:00 Creatine Kinase 83 U/L (26-192) 01/31/22 16:00 Troponin T Baseline 44 ng/L (0-10) H 01/31/22 16:00 Troponin T 120 Minute 45.37 ng/L (0-10) H 01/31/22 17:50 Delta Troponin T 1.37 ABS# (0-10) 01/31/22 17:50 Troponin T Hi Sens 6Hr 58.08 ng/L (0-10) H 01/30/22 23:47 Troponin T Hi Sens 6Hr Delta 14.08 ng/L (0-12) H* 01/30/22 23:47 Total Protein 6.2 g/dL (6.6-8.7) L 01/31/22 16:00 Albumin 2.3 g/dL (3.5-5.2) L 01/31/22 16:00 Globulin 3.9 g/dL (1.3-4.6) 01/31/22 16:00 TSH 3.98 uIU/mL (0.27-4.20) 01/31/22 16:00 Urine Color Yellow (Yellow) 01/31/22 18:45 Urine Appearance Clear (CLEAR) 01/31/22 18:45 Urine pH 6.5 (5-7) 01/31/22 18:45 Ur Specific [place] 1.010 (1.005-1.030) 01/31/22 18:45 Urine Protein Neg (Negative) 01/31/22 18:45 Urine Glucose (UA) Norm (Normal) 01/31/22 18:45 Urine Ketones Negative (Negative) 01/31/22 18:45 Urine Blood Neg (Negative) 01/31/22 18:45 Urine Nitrate Negative (Negative) 01/31/22 18:45 Urine Bilirubin Neg (Negative) 01/31/22 18:45 Urine Urobilinogen 4 mg/dL (Negative) H 01/31/22 18:45 Ur Leukocyte Esterase Negative (Negative) 01/31/22 18:45 Critical Care Time Critical Care Time: Critical Care Time: Yes Total Critical Care Time: 40 Attestation: The high probability of a clinically significant, sudden or life threatening de terioration of the patient's cardiovascular/sepsis system(s) required my full and direct attention, intervention and personal management. The critical care time is as shown. This time is in addition to time spent performing any reported procedures but includes the following: [x] Data and vital sign review and interpretation [x] Patient assessment, examination and intervention [x] Documentation [x] Medication orders and management Discharge Plan Discharge Patient Disposition: Admitted As Inpatient Admit Provider: Mario Kerr Clinical Impression: Sepsis, CAD (coronary artery disease), Status post coronary artery stent placement, HTN (hypertension), Cerebrovascular accident, History of bariatric surgery, Infected decubitus ulcer, Atrial fibrillation Condition: Stable Coding Level of Care Code 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
[2022-01-31] MEDS: cefTRIAXone 2,000 MG in sodium chloride 0.9% (plus) 50 ML 100 MG IV (17:32)
[2022-01-31 17:34] LABS: Basophils % 0.3 %; Eosinophils % 0.1 %; Hemoglobin 11.5 g/dL (11.5-15.3); Lymphocytes # 2.2 10^3/uL (0.8-4.8); Lymphocytes % 15.5 %; Mean Corpuscular HGB Conc 32.9 g/dL (30.0-36.0); Mean Corpuscular Volume 85.2 fl (81-99); Mean Platelet Volume 11.9 fL (7.4-10.4); Monocytes # 1.5 10^3/uL (0.2-0.9); Neutrophils # 10.19 10^3/uL (1.8-7.7); Neutrophils % 72.8 %; Nucleated Red Blood Cells % 0 %; Platelet Count 488 10^3/cmm (130-400); Red Blood Count 4.11 10^6/uL (4.1-5.3); Red Cell Distribution Width 17.2 % (12.1-15.1)
--- NOTE | 2022-01-31 17:38 | ECG_ITS ---
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 Measurements Intervals Arjay Rate: 132 P: CA: QRS: 37 QRSD: 76 T: 25 QT: 288 QTc: 427 Interpretive Statements ATRIAL FIBRILLATION WITH RAPID VENTRICULAR RESPONSE POSSIBLE ANTERIOR MYOCARDIAL INFARCTION , PROBABLY OLD [30 ms Q WAVE IN V3/V4, OR R < 0.2 mV IN V4] ABNORMAL RHYTHM ECG Heavy baseline artifact Compared to ECG 10/28/2021 09:28:54 Myocardial infarct finding now present Electronically Signed On 01-31-2022 23:02:12 CDT by Shaw Beltran M.D. [email or web address]
[2022-01-31 17:53] LABS: Alanine Aminotransferase 24 U/L (0-33); Albumin Level 2.3 g/dL (3.5-5.2); Alkaline Phosphatase 148 IU/L (35-105); Blood Urea Nitrogen 14 mg/dL (8-23); Calcium 9.1 mg/dL (8.5-10.5); Carbon Dioxide 25 mmol/L (22-29); Chloride 96 mmol/L (98-107); Creatine Phosphokinase 83 U/L (26-192); Globulin 3.9 g/dL (1.3-4.6); Glucose 116 mg/dL (65-115); Osmolality Calculated 271 mOsm/kg (285-295); Sodium 130 mmol/L (136-145); Total Bilirubin 0.6 mg/dL (0.15-1.2); Total Protein 6.2 g/dL (6.6-8.7)
[2022-01-31 17:56] LABS: Anion Gap 13.5 (5-19); Aspartate Amino Transferase 39 U/L (0-32); Potassium 4.5 mmol/L (3.5-5.1)
[2022-01-31 18:10] LABS: Troponin(5th) Baseline 44 ng/L (0-10)
[2022-01-31 18:25] LABS: Lactic Sepsis W/Reflex 1.6 mmol/L (0.5-2.2)
[2022-01-31 18:28] LABS: Troponin 5 2HR 45.37 ng/L (0-10)
[2022-01-31 18:30] LABS: Troponin 5 2HR Delta 1.37 ABS# (0-10)
[2022-01-31] MEDS: cefepime 2,000 MG in sodium chloride 0.9% (plus) 50 ML 100 MG IV (18:40)
[2022-01-31 18:53] LABS: Add Urine Microscopic? NO; Charge for UA Resulting for Rev
[2022-01-31 18:58] LABS: Blood Urine Neg (Negative); Glucose Urine UA Norm (Normal); Ketones Urine Negative (Negative); Nitrate Urine Negative (Negative); Protein Urine Neg (Negative); Urine Appearance Clear (CLEAR); Urine Color Yellow (Yellow); pH Urine 6.5 (5-7)
[2022-01-31 18:59] LABS: Bilirubin Urine Neg (Negative); Leukocyte Esterase Urine Negative (Negative); Urobilinogen Urine 4 mg/dL (Negative)
--- NOTE | 2022-01-31 19:12 | P.HP_ITS ---
Providers/Chief Complaint Admitting Physician: Mario Kerr Primary Care Provider: Raul Schaeffer MD Chief Complaint: ulcer, bed sore History of Present Illness 71-year-old lady [facility] resident, bedbound, requiring full assistance, at baseline alert but disoriented, was brought for evaluation to ER due to tachycardia and soft blood pressure, systolic in the 90s, heart rates into 120s. On presentation noted to be in atrial fibrillation with RVR. Leukocytosis noted of 14,000. Afebrile. She is awake, noncommunicative, not cooperative. On examination noted to have deep left gluteal decub with foul-smelling slough. She started on Cardizem scratch that she received Cardizem push, and started on Cardizem drip due to persistent A. fib with RVR. He is given antibiotic coverage after blood cultures for possible sepsis. Lactic acid is 1.6. Medications/Allergies Home Medications Medication Instructions Recorded Confirmed Last Taken Type tramadol 50 mg tablet 100 mg PO BID PRN 03/16/20 01/31/22 01/31/22 10:26 History magnesium hydroxide 400 mg/5 mL 30 ml PO DAILY PRN 01/30/21 01/31/22 01/29/21 History oral suspension (Milk of Magnesia) docusate sodium 100 mg capsule 300 mg PO DAILY PRN 05/22/21 01/31/22 Unknown History (Stool Softener) alprazolam 0.5 mg tablet (Xanax) 0.5 mg PO BID 01/31/22 01/31/22 01/30/22 13:02 History aspirin 81 mg tablet,delayed 81 mg FEEDING TUBE DAILY 01/31/22 01/31/22 01/31/22 10:25 History release atorvastatin 40 mg tablet 40 mg FEEDING TUBE BEDTIME 01/31/22 01/31/22 01/31/22 00:19 History diltiazem HCl 30 mg tablet 30 mg FEEDING TUBE QID 01/31/22 01/31/22 01/31/22 14:00 History levofloxacin 500 mg tablet 500 mg FEEDING TUBE DAILY 01/31/22 01/31/22 01/31/22 10:25 History nystatin 100,000 unit/gram topical 100,000 unit TOPICAL BID 01/31/22 01/31/22 01/31/22 12:19 History powder (Nyamyc) ondansetron 4 mg disintegrating 4 mg FEEDING TUBE Q8H 01/31/22 01/31/22 01/31/22 08:30 History tablet sodium hypochlorite 0.125 % 1 applic TOPICAL BID 01/31/22 01/31/22 01/31/22 00:19 History solution (Dakin's Solution) Allergies Allergy/AdvReac Type Severity Reaction Status Date / Time Penicillins Allergy ALGY-Rash Verified 10/29/21 13:57 PFSH Acute PFSH: Medical History (Updated 01/31/22 @ 19:17 by Mario Kerr MD) Abnormal stress test Atrial fibrillation CAD (coronary artery disease) Chronic migraine GERD (gastroesophageal reflux disease) HTN (hypertension) Postmenopausal osteoporosis Syncope and collapse Surgical History (Updated 01/31/22 @ 19:17 by Mario Kerr MD) H/O: hysterectomy Hx of tonsillectomy Post-splenectomy S/P cholecystectomy Stented coronary artery Family History Other Diabetes Hypertension Social History Smoking and tobacco status: former smoker Alcohol intake: never Vitals/I&O/Wt Last Vital Signs Temp 98.2 F 01/31/22 17:38 Pulse 111 H 01/31/22 18:55 Resp 16 01/31/22 18:55 BP 107/85 01/31/22 18:55 Pulse Ox 96 01/31/22 18:55 01/31/22 01/31/22 01/31/22 06:59 14:59 22:59 Intake Total 5.833 / 5.833 Balance 5.833 / 5.833 Weight last 48 hrs Weight 83.461 kg Physical Exam Const: COMMON NORMALS: alert; negative for patient oriented x3 GENERAL APPEARANCE: not cooperative ORIENTATION/CONSCIOUSNESS: Yes awake HENMT: COMMON NORMALS: normocephalic, EAC's normal, Normal external nose present and moist oral mucous membranes HEAD & SCALP: normocephalic NOSE: Normal external nose present EXTERNAL AUDITORY CANAL: EAC's normal Neck/C-Spine: COMMON NORMALS: no meningeal signs Chest: CHEST: Yes Symmetrical chest wall rise Resp: COMMON NORMALS: clear to auscultation bilaterally AUSCULTATION: clear to auscultation bilaterally Cardio: COMMON NORMALS: No murmurs present (Cardio) RATE: regular rate and tachycardic RHYTHM: abnormal rhythm irregularly irregular GI: COMMON NORMALS: Normal to inspection, nondistended, normoactive bowel sounds present, Soft to palpation and non-tender PALPATION: Yes Soft to palpation Extremity: COMMON NORMALS: no pedal edema Neuro: COMMON NORMALS: moves all extremities SENSORIUM/ORIENTATION: Yes alert MENINGEAL SIGNS: Yes no meningeal signs Psych: COMMON NORMALS: mental status grossly normal Skin: COMMON NORMALS: no wounds NARRATIVE SKIN EXAM: Large and deep ulceration of R upper buttock, L lower flank, with foul smelling slough patches adherent to inner bird, undermining, bone exposure. Size of about [id number]. RASHES: no rashes Urinary Catheter Management: Woody: Cath Placed During This Visit: yes Urinary Catheter Date of Insertion: 01/31/22 Urinary Catheter Time of Insertion: 18:49 Data : 01/31/22 16:00 01/31/22 16:00 Micro: Microbiology 01/31/22 17:53 Blood Culture - Preliminary Blood SPECIMEN COLLECTED 01/31/22 17:50 Blood Culture - Preliminary Blood SPECIMEN COLLECTED A&P Assessment and plan (1) Atrial fibrillation: A. fib with RVR. Troponin mildly elevated 44-45. Possible Q-wave in lead 4. Sister reports history of CA, stent placement. Cardizem drip. Resume p.o. Cardizem. Increase to 60 mg 4 times daily. Wean off drip. Cardiac monitoring. Treat decub infection. Check magnesium, TSH. Potassium is okay. Status: Acute (2) Infected decubitus ulcer: Foul-smelling slough at large decub ulcer with noted undermining. With bone exposure. Cefepime, vancomycin. May end up requiring surgical debridement. For now start with enzymatic debridement. Alginate. Cover with foam. Repositioning. Continue tube feeds. Status: Acute (3) Sepsis: Possible sepsis with leukocytosis, tachycardia. She is afebrile. Tachycardia may be secondary to atrial fibrillation with RVR. Blood cultures collected. Lactic acid 1.6. Antibiotics as above. Source would not be infected decub of right gluteal/flank area. Chest x-ray, UA not suggestive of acute infection. Does not appear to have cellulitis elsewhere. Discussed with her sister. Status: Acute Plan CAD status post stenting GERD HTN Bedbound, total assist Tube feeds Attestations Medical Necessity Statement*: Admission of over 2 midnights is inspected for possible sepsis, with infection of decubitus ulcer, A. fib with RVR. 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
--- NOTE | 2022-01-31 19:31 | PC.NURSE ---
Patient in bed resting with eyes closed, breathing even and non-labored. No distress noted.
[2022-01-31] MEDS: iohexol 300 mg/mL 100 mL Btl IV (19:36)
--- NOTE | 2022-01-31 19:37 | PC.NURSE ---
Attempted to call report to ICU, RN in another room at this time and will call back to get report.
--- NOTE | 2022-01-31 20:24 | PC.NURSE ---
Report given to Eloise COLBY.
--- NOTE | 2022-01-31 21:27 | PC.PHAR ---
Vancomycin is dosed at 1000mg IVPB every 12 hours to produce a predicted trough level of 11.53 (population based pharmacokinetic analysis). A trough level has been ordered from the lab to be obtained before the fourth dose to confirm and adjust if needed.
[2022-01-31] MEDS: dilTIAZem 30 mg Tablet 60 MG PEG-TUBE (21:41)
[2022-01-31] MEDS: ondansetron 4 MG Tablet PEG-TUBE (21:41)
[2022-01-31] MEDS: atorvastatin 40 mg Tablet PEG-TUBE (21:41)
[2022-01-31] MEDS: vancomycin 1,000 MG in sodium chloride 0.9% 250 ML 1000 MG IV (21:49)
[2022-01-31 22:10] LABS: Magnesium 1.9 mg/dL (1.7-2.3); Thyroid Stimulating Hormone 3.98 uIU/mL (0.27-4.20)
[2022-02-01] VITALS (38 sets, daily range): BP systolic 80–109; BP diastolic 47–85; PULSE 68–113; RESP 10–46; TEMP 36.4–37.1; O2SAT 90–100
[2022-02-01 00:22] LABS: Troponin 5 6HR 58.08 ng/L (0-10)
[2022-02-01 01:12] LABS: Troponin 5 6HR Delta 14.08 ng/L (0-12)
--- NOTE | 2022-02-01 05:34 | P.CONIM_ITS ---
Providers/Reason For Consult Consulting Physician/Specialty*: Dr. Yeager/cardiothoracic surgery Reason for Consult*: Gluteal/sacral decubitus Requesting Physician: Dr. Kerr Attending Physician: Mario Kerr Primary Care Provider: Raul Schaeffer MD History of Present Illness History of Present Illness Jennifer Sahu is a 71 year old female whom I saw originally during a presentation to [facility] wound care services on January 19. She is a 71-year-old resident of [facility] skilled care [facility] and presented with a stage IV right medial gluteal ulcer. She has dementia and is minimally communicative. It is reported by her attendant that she frequently lays on her right side and it is very difficult to keep her off of this area. At her original visit she had a quite malodorous decubitus which appeared to have a anaerobic component by smell. She underwent sharp debridement while in that clinic visit. She had originally been cared for through wound care service visits at the [facility] care [facility]. I had a return to our clinic on January 26 for reassessment and another debridement. Original cultures included a Proteus therefore we changed her oral Bactrim to Levaquin. She underwent further debridement at that time and I noted that I felt more debridement would be required. Due to her cognitive limitat ions, it has been a challenge to unload this region. She presented back to the emergency department yesterday evening with a blood pressure to the 90s and with tachycardia and was found to be in A. fib with RVR. White count was 14,000. She was afebrile. She is awake but not communicative and was not cooperative. This appears to, from understanding, be her baseline. She is initiated on diltiazem drip at the time of my evaluation at bedside this morning she is still in A. fib though nursing service reports she does have intermittent episodes of sinus rhythm. Her heart rate is now in the 90s. Blood pressure is also in the 90s. Again, she does not cooperate or answer any questions. She has been receiving tube feedings up until the time of my examination this morning. Diagnostic imaging has included a chest x-ray which was unremarkable and abdominal/pelvic CT scan confirmed this large decubitus with extensive soft tissue defect involving the right flank and upper right buttock and extending to the outer cortex of the right medial ilium. No fluid collection or abscess was noted. There is no new bony destruction or osteomyelitis of the right ilium. Review of Systems General: Reports: ROS unobtainable due to mental status Medications/Allergies Home Medications Medication Instructions Recorded Confirmed Last Taken Type tramadol 50 mg tablet 100 mg PO BID PRN 03/16/20 01/31/22 01/31/22 10:26 History magnesium hydroxide 400 mg/5 mL 30 ml PO DAILY PRN 01/30/21 01/31/22 01/29/21 History oral suspension (Milk of Magnesia) docusate sodium 100 mg capsule 300 mg PO DAILY PRN 05/22/21 01/31/22 Unknown History (Stool Softener) alprazolam 0.5 mg tablet (Xanax) 0.5 mg PO BID 01/31/22 01/31/22 01/30/22 13:02 History aspirin 81 mg tablet,delayed 81 mg FEEDING TUBE DAILY 01/31/22 01/31/22 01/31/22 10:25 History release atorvastatin 40 mg tablet 40 mg FEEDING TUBE BEDTIME 01/31/22 01/31/22 01/31/22 00:19 History diltiazem HCl 30 mg tablet 30 mg FEEDING TUBE QID 01/31/22 01/31/22 01/31/22 14:00 History levofloxacin 500 mg tablet 500 mg FEEDING TUBE DAILY 01/31/22 01/31/22 01/31/22 10:25 History nystatin 100,000 unit/gram topical 100,000 unit TOPICAL BID 01/31/22 01/31/22 01/31/22 12:19 History powder (Nyamyc) ondansetron 4 mg disintegrating 4 mg FEEDING TUBE Q8H 01/31/22 01/31/22 01/31/22 08:30 History tablet sodium hypochlorite 0.125 % 1 applic TOPICAL BID 01/31/22 01/31/22 01/31/22 00:19 History solution (Dakin's Solution) Allergies Allergy/AdvReac Type Severity Reaction Status Date / Time Penicillins Allergy ALGY-Rash Verified 10/29/21 13:57 Current Medications Generic Name Dose Route Start Last Admin Trade Name Freq PRN Reason Stop Dose Admin Atorvastatin Calcium 40 mg 01/31/22 21:11 01/31/22 21:41 Atorvastatin 40 Mg Tablet PEG-TUBE 40 mg BEDTIME TAWANNA Administration Diltiazem HCl 60 mg 01/31/22 21:11 01/31/22 21:41 Diltiazem 30 Mg Tablet PEG-TUBE 60 mg QID TAWANNA Administration Diltiazem HCl 125 mg/ Sodium 125 mls @ 0 mls/hr 01/31/22 17:30 01/31/22 21:35 Chloride IV 15 mg/hr .Q0M TAWANNA 15 mls/hr Titration Protocol Per Protocol Ondansetron HCl 4 mg 01/31/22 21:11 01/31/22 21:41 Ondansetron 4 Mg Tablet PEG-TUBE 4 mg Q8H TAWANNA Administration PFSH Acute PFSH: Medical History Abnormal stress test Atrial fibrillation CAD (coronary artery disease) Chronic migraine GERD (gastroesophageal reflux disease) HTN (hypertension) Postmenopausal osteoporosis Syncope and collapse Surgical History H/O: hysterectomy Hx of tonsillectomy Post-splenectomy S/P cholecystectomy Stented coronary artery Family History Other Diabetes Hypertension Social History Smoking and tobacco status: former smoker Alcohol intake: never Vitals/I&O/Wt Last Vital Signs Temp 98.2 F 01/31/22 17:38 Pulse 110 H 01/31/22 22:00 Resp 20 H 01/31/22 20:42 BP 98/60 01/31/22 20:42 Pulse Ox 98 01/31/22 20:42 01/31/22 01/31/22 02/01/22 14:59 22:59 06:59 Intake Total 32.400 / 32.400 Output Total 150 / 150 Balance -117.600 / -117.600 Weight last 48 hrs Weight 184 lb Physical Exam HENMT: COMMON NORMALS: normocephalic and atraumatic HEAD & SCALP: normocephalic and atraumatic Neck/C-Spine: COMMON NORMALS: no lymphadenopathy Resp: COMMON NORMALS: normal respiratory effort, No retractions and No use of accessory muscles Cardio: RHYTHM: abnormal rhythm irregularly irregular GI: COMMON NORMALS: Normal to inspection, nondistended, normoactive bowel sounds present Back/Pelvis: OTHER: Dressing in place from known large right gluteal/sacral decubitus with malodor. Urinary Catheter Management: Woody: Cath Placed During This Visit: yes Reason for Continuing Indwelling Catheter: Accurate Measurement of Urinary Output in Critically Ill Patients Urinary Catheter Date of Insertion: 01/31/22 Urinary Catheter Time of Insertion: 18:49 Data : 01/31/22 16:00 01/31/22 16:00 Micro: Microbiology 01/31/22 17:53 Blood Culture - Preliminary Blood SPECIMEN COLLECTED 01/31/22 17:50 Blood Culture - Preliminary Blood SPECIMEN COLLECTED A&P Assessment and plan (1) Infected decubitus ulcer: Plan: We will plan for surgical debridement of this decubitus ulcer late this evening. Given the contamination of the wound, we will do this at the end of the operative schedule for today as a infectious control measure. As noted from my original exam during her visit to wound care services, I think this will be an exceptional challenge to heal this wound related to her cognitive dysfunction and the chronic pressure that is applied. We had previously had a low loss air mattress recommended at her skilled facility. I believe it will be doubtful that we will ever heal this wound, but hopefully we can assist in control. Status: Acute Consult Attestations Medical Necessity Statement: Large right gluteal/sacral infected decubitus. 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
[2022-02-01] MEDS: lactated ringers 1,000 ML 150 ML IV ×4 (06:00→22:00)
[2022-02-01] MEDS: ondansetron 4 MG Tablet PEG-TUBE ×3 (06:13→20:12)
[2022-02-01] MEDS: cefepime 2,000 MG in sodium chloride 0.9% (plus) 50 ML 100 MG IV ×2 (06:13→17:18)
[2022-02-01 06:30] LABS: Blood Urea Nitrogen 12 mg/dL (8-23); Calcium 8.8 mg/dL (8.5-10.5); Carbon Dioxide 21 mmol/L (22-29); Chloride 102 mmol/L (98-107); Glucose 83 mg/dL (65-115); Osmolality Calculated 273 mOsm/kg (285-295); Sodium 132 mmol/L (136-145)
[2022-02-01 06:32] LABS: Anion Gap 13.2 (5-19); Potassium 4.2 mmol/L (3.5-5.1)
[2022-02-01] MEDS: dilTIAZem 30 mg Tablet 60 MG PEG-TUBE (08:27)
[2022-02-01] MEDS: aspirin 81 mg EC Tablet XX (08:27)
[2022-02-01 08:51] LABS: Basophils % 0.4 %; Eosinophils # 0.1 10^3/uL (0.0-0.8); Eosinophils % 0.6 %; Lymphocytes # 2.3 10^3/uL (0.8-4.8); Lymphocytes % 21.7 %; Mean Corpuscular HGB Conc 31.3 g/dL (30.0-36.0); Mean Corpuscular Hemoglobin 27.5 pg (28.0-34.0); Mean Corpuscular Volume 88.2 fl (81-99); Mean Platelet Volume 10.8 fL (7.4-10.4); Monocytes # 1.5 10^3/uL (0.2-0.9); Neutrophils # 6.54 10^3/uL (1.8-7.7); Neutrophils % 62.8 %; Nucleated Red Blood Cells % 0.2 %; Platelet Count 413 10^3/cmm (130-400); Red Blood Count 3.63 10^6/uL (4.1-5.3); Red Cell Distribution Width 17.5 % (12.1-15.1); White Blood Count 10.4 10^3/uL (4.0-10.0)
[2022-02-01] MEDS: nystatin powder 15 gm Btl 1 APPLIC TOPICAL ×2 (08:59→17:19)
[2022-02-01] MEDS: vancomycin 1,000 MG in sodium chloride 0.9% 250 ML 250 MG IV ×2 (09:45→21:36)
--- NOTE | 2022-02-01 11:02 | P.ANESASSM_ITS ---
Pre-Anesthetic Assessment Height/Weight: Height 1.5 m Weight 83.461 kg Temp Pulse Resp BP Pulse Ox 98.2 F 95 20 H 98/60 99 01/31/22 17:38 02/01/22 09:31 01/31/22 20:42 01/31/22 20:42 02/01/22 09:31 Preop Diagnosis: Dysphagia Operation Date: 02/01/22 20:25 Proposed Procedures p Gluteal and sacral decubitus debridement(Not Applicable) - Gustabo Yeager MD Was Beta Axel taken within 24 hours: N/A Was Clonidine taken within 24 hours: N/A Last Intake: 06:00 Social No alcohol and No tobacco Exam alert (confused), clear to auscultation bilaterally and regular rate & rhythm (converted to NSR) Airway Submandibular: within normal limits Cervical ROM: within normal limits Mallampati: Class II Dentition: false Pulmonary None reported CV/HEM Atrial Fibrillation (with RVR on cardizem gtt), Coronary Artery Disease (PTCA), Congestive Heart Failure and Hypertension None reported Hepatic None reported GI Gastroesophageal Reflux Disease Metabolic None reported Musc/skel Lower Back Pain and Osteoarthritis/DJD Neuropsych Cerebrovascular Accident (right side ) and Dementia Anesthetic Plan ASA status: 4 Anesthesia: MAC Risk of > 500 ml blood loss (7ml/kg in children): No Medications/Allergies Home Medications Medication Instructions Recorded Confirmed Last Taken Type tramadol 50 mg tablet 100 mg PO BID PRN 03/16/20 01/31/22 01/31/22 10:26 History magnesium hydroxide 400 mg/5 mL 30 ml PO DAILY PRN 01/30/21 01/31/22 01/29/21 History oral suspension (Milk of Magnesia) docusate sodium 100 mg capsule 300 mg PO DAILY PRN 05/22/21 01/31/22 Unknown History (Stool Softener) alprazolam 0.5 mg tablet (Xanax) 0.5 mg PO BID 01/31/22 01/31/22 01/30/22 13:02 History aspirin 81 mg tablet,delayed 81 mg FEEDING TUBE DAILY 01/31/22 01/31/22 01/31/22 10:25 History release atorvastatin 40 mg tablet 40 mg FEEDING TUBE BEDTIME 01/31/22 01/31/22 01/31/22 00:19 History diltiazem HCl 30 mg tablet 30 mg FEEDING TUBE QID 01/31/22 01/31/22 01/31/22 14:00 History levofloxacin 500 mg tablet 500 mg FEEDING TUBE DAILY 01/31/22 01/31/22 01/31/22 10:25 History nystatin 100,000 unit/gram topical 100,000 unit TOPICAL BID 01/31/22 01/31/22 01/31/22 12:19 History powder (Nyamyc) ondansetron 4 mg disintegrating 4 mg FEEDING TUBE Q8H 01/31/22 01/31/22 01/31/22 08:30 History tablet sodium hypochlorite 0.125 % 1 applic TOPICAL BID 01/31/22 01/31/22 01/31/22 00:19 History solution (Dakin's Solution) Allergies Allergy/AdvReac Type Severity Reaction Status Date / Time Penicillins Allergy ALGY-Rash Verified 10/29/21 13:57 Current Medications Generic Name Dose Route Start Last Admin Trade Name Freq PRN Reason Stop Dose Admin Aspirin 81 mg 02/01/22 09:00 02/01/22 08:27 Aspirin 81 Mg Ec Tablet XX 81 mg DAILY TAWANNA Administration Atorvastatin Calcium 40 mg 01/31/22 21:11 01/31/22 21:41 Atorvastatin 40 Mg Tablet PEG-TUBE 40 mg BEDTIME TAWANNA Administration Diltiazem HCl 60 mg 01/31/22 21:11 02/01/22 08:27 Diltiazem 30 Mg Tablet PEG-TUBE 60 mg QID TAWANNA Administration Diltiazem HCl 125 mg/ Sodium 125 mls @ 0 mls/hr 01/31/22 17:30 02/01/22 05:01 Chloride IV 0 mg/hr .Q0M TAWANNA 0 mls/hr Titration Protocol Per Protocol Cefepime HCl 2,000 mg/ Sodium 50 mls @ 100 mls/hr 02/01/22 06:00 02/01/22 07:00 Chloride IV Infused Q12H TAWANNA Infusion Protocol Lactated Ringer's 1,000 mls @ 150 mls/hr 02/01/22 05:45 02/01/22 06:00 Lactated Ringers IV 150 mls/hr .Q6H40M TAWANNA Administration Vancomycin HCl 1,000 mg/ 250 mls @ 250 mls/hr 02/01/22 10:00 02/01/22 09:45 Sodium Chloride IV 250 mls/hr Q12H TAWANNA Administration Nystatin 1 applic 02/01/22 09:00 02/01/22 08:59 Nystatin Powder 15 Gm Btl TOPICAL 1 applic BID TAWANNA Administration Ondansetron HCl 4 mg 01/31/22 21:11 02/01/22 06:13 Ondansetron 4 Mg Tablet PEG-TUBE 4 mg Q8H TAWANNA Administration PFSH Anesthesia Medical History Abnormal stress test Atrial fibrillation CAD (coronary artery disease) Chronic migraine GERD (gastroesophageal reflux disease) HTN (hypertension) Postmenopausal osteoporosis Syncope and collapse Surgical History H/O: hysterectomy Hx of tonsillectomy Post-splenectomy S/P cholecystectomy Stented coronary artery Family History Other Diabetes Hypertension Social History Smoking and tobacco status: former smoker Alcohol intake: never Data Anesthesia : 02/01/22 08:36 02/01/22 05:21 Short CBC 01/31/22 02/01/22 02/01/22 Range/Units 16:00 05:21 08:36 WBC 14.0 H Cancelled 10.4 H (4.0-10.0) 10^3/uL Hgb 11.5 Cancelled 10.0 L (11.5-15.3) g/dL Hct 35.0 L Cancelled 32.0 L (37.0-47.0) % MCV 85.2 Cancelled 88.2 (81-99) fl Plt Count 488 H Cancelled 413 H (130-400) 10^3/cmm Neut % (Auto) 72.8 Cancelled 62.8 % Neut # (Auto) 10.19 H Cancelled 6.54 (1.8-7.7) 10^3/uL BMP 01/31/22 02/01/22 16:00 05:21 Sodium 130 L 132 L Potassium 4.5 4.2 Chloride 96 L 102 Carbon Dioxide 25 21 L BUN 14 12 Creatinine 0.4 L 0.3 L Glucose 116 H 83 Calcium 9.1 8.8 Cardiac Enzymes 01/30/22 01/31/22 01/31/22 Range/Units 23:47 16:00 16:00 Creatine Kinase 83 (26-192) U/L Troponin T Baseline 44 H (0-10) ng/L Troponin T 120 Minute (0-10) ng/L Delta Troponin T (0-10) ABS# Troponin T Hi Sens 6Hr 58.08 H (0-10) ng/L Troponin T Hi Sens 6Hr Delta 14.08 H* (0-12) ng/L 01/31/22 Range/Units 17:50 Creatine Kinase (26-192) U/L Troponin T Baseline (0-10) ng/L Troponin T 120 Minute 45.37 H (0-10) ng/L Delta Troponin T 1.37 (0-10) ABS# Troponin T Hi Sens 6Hr (0-10) ng/L Troponin T Hi Sens 6Hr Delta (0-12) ng/L Liver Function 01/31/22 Range/Units 16:00 Total Bilirubin 0.6 (0.15-1.2) mg/dL AST 39 H (0-32) U/L ALT 24 (0-33) U/L Alkaline Phosphatase 148 H (35-105) IU/L Albumin 2.3 L (3.5-5.2) g/dL Urine 01/31/22 Range/Units 18:45 Urine Color Yellow (Yellow) Urine Appearance Clear (CLEAR) Urine pH 6.5 (5-7) Ur Specific [place] 1.010 (1.005-1.030) Urine Protein Neg (Negative) Urine Glucose (UA) Norm (Normal) Urine Ketones Negative (Negative) Urine Nitrate Negative (Negative) Urine Bilirubin Neg (Negative) Ur Leukocyte Esterase Negative (Negative) Microbiology 01/31/22 17:53 Blood Culture - Preliminary Blood SPECIMEN COLLECTED 01/31/22 17:50 Blood Culture - Preliminary Blood SPECIMEN COLLECTED Cardiac Studies: Echocardiogram 10/29/21 Echocardiogram Ultrasound 01/30/21 Sestamibi Stress Test (Cardiology) 02/11/20 Holter Monitor 02/26/20
--- NOTE | 2022-02-01 11:45 | PM.PN ---
Subjective Subjective: She is noninteractive, noncommunicative, although is little bit more alert today, appears to respond to voice with vocalizations. Vitals/I&O/Wt Last Vital Signs Temp 98.2 F 01/31/22 17:38 Pulse 95 02/01/22 09:31 Resp 20 H 01/31/22 20:42 BP 98/60 01/31/22 20:42 Pulse Ox 99 02/01/22 09:31 01/31/22 02/01/22 02/01/22 22:59 06:59 14:59 Intake Total 38.650 / 38.650 47.667 / 86.317 710 / 710 Output Total 150 / 150 250 / 400 Balance -111.350 / -111.350 -202.333 / -313.683 710 / 710 Weight last 48 hrs Weight 83.461 kg Physical Exam Const: COMMON NORMALS: alert; negative for patient oriented x3 GENERAL APPEARANCE: not cooperative ORIENTATION/CONSCIOUSNESS: Yes awake HENMT: COMMON NORMALS: normocephalic, EAC's normal, Normal external nose present and moist oral mucous membranes HEAD & SCALP: normocephalic NOSE: Normal external nose present EXTERNAL AUDITORY CANAL: EAC's normal Neck/C-Spine: COMMON NORMALS: no meningeal signs Chest: CHEST: Yes Symmetrical chest wall rise Resp: COMMON NORMALS: clear to auscultation bilaterally AUSCULTATION: clear to auscultation bilaterally Cardio: COMMON NORMALS: No murmurs present (Cardio) RATE: tachycardic RHYTHM: abnormal rhythm irregularly irregular GI: COMMON NORMALS: Normal to inspection, nondistended, normoactive bowel sounds present, Soft to palpation and non-tender PALPATION: Yes Soft to palpation Extremity: COMMON NORMALS: no pedal edema Neuro: COMMON NORMALS: moves all extremities; negative for patient oriented x3 SENSORIUM/ORIENTATION: Yes alert MENINGEAL SIGNS: Yes no meningeal signs Psych: COMMON NORMALS: mental status grossly normal Skin: COMMON NORMALS: no wounds NARRATIVE SKIN EXAM: Large and deep ulceration of R upper buttock, L lower flank, with foul smelling slough patches adherent to inner bird, undermining, bone exposure. RASHES: no rashes Urinary Catheter Management: Woody: Cath Placed During This Visit: yes Reason for Continuing Indwelling Catheter: Accurate Measurement of Urinary Output in Critically Ill Patients Urinary Catheter Date of Insertion: 01/31/22 Urinary Catheter Time of Insertion: 18:49 Data : 02/01/22 08:36 02/01/22 05:21 Micro: Microbiology 01/31/22 17:53 Blood Culture - Preliminary Blood SPECIMEN COLLECTED 01/31/22 17:50 Blood Culture - Preliminary Blood SPECIMEN COLLECTED A&P Assessment and plan (1) Infected decubitus ulcer: Appreciate surgical consultation, she is going for debridement tonight of the infected large decub ulcer. Continue antibiotic coverage. Foul-smelling slough at large decub ulcer with noted undermining. With bone exposure. Dressing changes. Repositioning. Continue tube feeds. Status: Acute (2) Sepsis: Improving. Improvement in leukocytosis. Resolution of tachycardia. Afebrile. More alert. Blood cultures collected. Antibiotics as above. Source would not be infected decub of right gluteal/flank area. Chest x-ray, UA not suggestive of acute infection. Does not appear to have cellulitis elsewhere. Status: Acute (3) Atrial fibrillation: Rate now better controlled. In the 80s. Weaned off Cardizem drip. P.o. Cardizem held for now prior to surgery. A. fib with RVR. Troponin mildly elevated 44-45. Possible Q-wave in lead 4. Sister reports history of [place], stent placement. Mild-moderate troponin elevation likely secondary to demand ischemia with RVR, sepsis. Continue cardiac monitoring. Treat decub infection. Check magnesium, TSH. Potassium is okay. Status: Acute Plan CAD status post stenting GERD HTN Bedbound, total assist Tube feeds Attestations Medical Necessity Statement*: Continue admission for assessment management of infection of large decub ulcer, optimization of control of A. fib with RVR. Coding Level of Care Code Acute Upper Leather Sorter for [facility] Diagnoses Atrial fibrillation I48.91 Infected decubitus ulcer L89.90; L08.9 Sepsis A41.9
--- NOTE | 2022-02-01 13:41 | PC.NURSE ---
Addendum entered by aWng Nayak RN 02/01/22 13:47: Tube feedings restarted after surgery per previous orders. Original Note: Pt returned from surgery at 1330. Wound vac to R buttocks in place. 125mmhg suction. Pt toleratedprocedure well per [employer]. VSS. Will monitor.
--- NOTE | 2022-02-01 13:49 | PM.OP ---
Operative Report Date of procedure: February 01, 2022 Pre-op diagnosis: Preop Diagnosis right gluteal/sacral decubitus Post-op diagnosis: same Procedure done: Debridement of right gluteal/sacral decubitus Placement of wound VAC Specimens removed/disposition: Tissue collected for culture Pathology: none sent Surgeon: Gustabo Yeager Anesthesia: MAC Condition: stable Disposition: ICU Brief History: Ms. reilly is a 71-year-old female with a resident of a local skilled care facility. She has advanced dementia. She has a large right gluteal/sacral decubitus which is being cared for on site as well as during the last 2 weeks having 2 prior visits to the [facility] wound care services. She was admitted with worsening of her decubitus as well as fever. She is been placed on broad-spectrum antibiotics and I have been asked to perform surgical debridement. Consent was obtained from Ms. reilly sister. Procedure: Ms. reilly was taken operating theater carefully positioned in the left lateral cubitus position over axillary protective padding. She received IV conscious sedation with continuous anesthesia monitoring. The wound underwent sharp debridement with Metzenbaum scissors and forceps as well as the use of a recent curette. Devitalized tissue was removed on all quadrants. There is some exposed osseous posterior aspect of the ilium. No reta purulence was encountered and there was no substantial malodor has been noted previously on 2 prior visits to the wound care service. Subarterial was collected for culture. All devitalized tissue was removed. Following this, after careful irrigation antibiotic solution, wound VAC dressing was placed and connected to continuous suction. Final wound dimensions are 10 cm in length by 12 cm in width by 2 cm in depth by 3.5 cm in undermining cranially. There is still saw the procedure well and was carefully returned to the ICU bed where she was awakened from conscious sedation. Vital signs remained stable throughout the procedure. She has now returned to the ICU. I recommend wound VAC dressing changes at 3-day intervals.
--- NOTE | 2022-02-01 15:28 | ANE.PACU2 ---
Inpatient post-anesthesia follow up: Airway intact: Yes Vital signs: Temperature 97.6 F Pulse Rate 79 Respiratory Rate 23 Blood Pressure 108/65 Pulse Oximetry 100 Oxygen Delivery Me thod [ Nasal Cannula Current Rate & Del romi] Oxygen Delivery Me thod Room Air Oxygen Flow Rate [ Current Rate 2 & Delivery] Fraction of Inspir ed Oxygen Hydration adequate: Yes Nausea and vomiting: No Pain level: 1 Mental status: Baseline
[2022-02-01] MEDS: morphine 4 mg/mL SDV 1 mL 2 MG IVP (16:44)
[2022-02-01] MEDS: TRAMadol 50 mg Tablet 100 MG PO (20:10)
[2022-02-01] MEDS: atorvastatin 40 mg Tablet PEG-TUBE (20:13)
[2022-02-02] VITALS (13 sets, daily range): BP systolic 82–111; BP diastolic 46–66; PULSE 82–111; RESP 15–22; TEMP 36.4–36.7; O2SAT 92–96
[2022-02-02] MEDS: morphine 4 mg/mL SDV 1 mL 2 MG IVP ×2 (00:31→20:24)
[2022-02-02] MEDS: cefepime 2,000 MG in sodium chloride 0.9% (plus) 50 ML 100 MG IV ×2 (03:49→18:27)
[2022-02-02] MEDS: lanolin oint 7 gm 1 APPLIC TOPICAL (03:49)
[2022-02-02] MEDS: ondansetron 4 MG Tablet PEG-TUBE ×3 (04:08→20:24)
[2022-02-02] MEDS: TRAMadol 50 mg Tablet 100 MG PO ×2 (04:10→14:44)
--- NOTE | 2022-02-02 04:38 | PC.NURSE ---
Patient grimaces and moans when being repositioned. PRN pain medication given as needed.
[2022-02-02 06:55] LABS: Basophils # 0.1 10^3/uL (0.0-0.1); Basophils % 0.8 %; Eosinophils # 0.2 10^3/uL (0.0-0.8); Eosinophils % 2.1 %; Hematocrit 28.7 % (37.0-47.0); Hemoglobin 9.3 g/dL (11.5-15.3); Lymphocytes # 2.1 10^3/uL (0.8-4.8); Lymphocytes % 22.7 %; Mean Corpuscular HGB Conc 32.4 g/dL (30.0-36.0); Mean Corpuscular Hemoglobin 28.2 pg (28.0-34.0); Mean Platelet Volume 12.1 fL (7.4-10.4); Monocytes # 1.2 10^3/uL (0.2-0.9); Monocytes % 13.5 %; Neutrophils # 5.49 10^3/uL (1.8-7.7); Neutrophils % 60.5 %; Nucleated Red Blood Cells % 0 %; Platelet Count 352 10^3/cmm (130-400); Red Cell Distribution Width 17.4 % (12.1-15.1); White Blood Count 9.1 10^3/uL (4.0-10.0)
[2022-02-02 07:00] LABS: Alanine Aminotransferase 20 U/L (0-33); Albumin Level 1.7 g/dL (3.5-5.2); Alkaline Phosphatase 127 IU/L (35-105); Aspartate Amino Transferase 39 U/L (0-32); Blood Urea Nitrogen 12 mg/dL (8-23); Calcium 8.4 mg/dL (8.5-10.5); Carbon Dioxide 23 mmol/L (22-29); Chloride 104 mmol/L (98-107); Globulin 2.7 g/dL (1.3-4.6); Glucose 117 mg/dL (65-115); Osmolality Calculated 279 mOsm/kg (285-295); Sodium 134 mmol/L (136-145); Total Bilirubin 0.4 mg/dL (0.15-1.2); Total Protein 4.4 g/dL (6.6-8.7)
[2022-02-02 07:03] LABS: Anion Gap 11.4 (5-19); Potassium 4.4 mmol/L (3.5-5.1)
--- NOTE | 2022-02-02 07:37 | PC.NURSE ---
received report, pt appears to be resting comfortably, no needs identified at this time. reviewed poc, assumed care of pt.
[2022-02-02 09:07] LABS: Cortisol Random 5.49 ug/dL (2.47-19.5)
--- NOTE | 2022-02-02 09:34 | PC.NUTR ---
Consult for Tube Feeding recommendations appreciated. Please consider Jevity 1.2 starting at 10 ml/hr, increasing 10 mls Q8H as tolerated until goal rate of 40 mls/hr is reached, as well as flushes 100 mls Q6H. Details in RD assessment.
[2022-02-02] MEDS: vancomycin 1,000 MG in sodium chloride 0.9% 250 ML 250 MG IV ×2 (10:11→20:25)
[2022-02-02] MEDS: lactated ringers 1,000 ML 150 ML IV ×3 (10:13→20:25)
[2022-02-02] MEDS: nystatin powder 15 gm Btl 1 APPLIC TOPICAL ×2 (10:14→18:28)
[2022-02-02] MEDS: aspirin 81 mg EC Tablet XX (10:14)
--- NOTE | 2022-02-02 10:20 | PM.PN ---
Subjective Subjective: She is more awake and alert. Vocalizes when spoken to, although did not appear to reliably answer for me. Does not appear in discomfort or pain. Does not follow commands. Vitals/I&O/Wt Last Vital Signs Temp 98.0 F 02/02/22 07:46 Pulse 90 02/02/22 07:46 Resp 15 02/02/22 07:46 BP 82/46 02/02/22 07:46 Pulse Ox 92 02/02/22 07:46 02/01/22 02/02/22 02/02/22 22:59 06:59 14:59 Intake Total 1795.0 / 3505.0 1050 / 4555.0 Output Total 800 / 800 400 / 1200 Balance 995.0 / 2705.0 650 / 3355.0 Weight last 48 hrs Weight 83.461 kg Physical Exam Const: COMMON NORMALS: alert; negative for patient oriented x3 GENERAL APPEARANCE: not cooperative ORIENTATION/CONSCIOUSNESS: Yes awake HENMT: COMMON NORMALS: normocephalic, EAC's normal, Normal external nose present and moist oral mucous membranes HEAD & SCALP: normocephalic NOSE: Normal external nose present EXTERNAL AUDITORY CANAL: EAC's normal Neck/C-Spine: COMMON NORMALS: no meningeal signs Chest: CHEST: Yes Symmetrical chest wall rise Resp: COMMON NORMALS: clear to auscultation bilaterally AUSCULTATION: clear to auscultation bilaterally Cardio: COMMON NORMALS: No murmurs present (Cardio) RATE: tachycardic RHYTHM: abnormal rhythm irregularly irregular GI: COMMON NORMALS: Normal to inspection, nondistended, normoactive bowel sounds present, Soft to palpation and non-tender PALPATION: Yes Soft to palpation Extremity: COMMON NORMALS: no pedal edema Neuro: COMMON NORMALS: moves all extremities; negative for patient oriented x3 SENSORIUM/ORIENTATION: Yes alert MENINGEAL SIGNS: Yes no meningeal signs Psych: COMMON NORMALS: mental status grossly normal Skin: COMMON NORMALS: no wounds NARRATIVE SKIN EXAM: Wound VAC over large and deep ulceration of R upper buttock/lower flank RASHES: no rashes Urinary Catheter Management: Woody: Cath Placed During This Visit: yes Reason for Continuing Indwelling Catheter: Assist Healing of Perineal & Sacral Wounds- Incontinent Patients Urinary Catheter Date of Insertion: 01/31/22 Urinary Catheter Time of Insertion: 18:49 Data : 04/13/22 05:45 02/02/22 05:45 Micro: Microbiology 02/01/22 13:06 Gram Stain - Final Buttock 01/31/22 17:53 Blood Culture - Preliminary Blood NEGATIVE TO DATE 01/31/22 17:50 Blood Culture - Preliminary Blood NEGATIVE TO DATE A&P Assessment and plan (1) Hypotension: SBP scratch that blood pressure 90/60, heart rate in the high 90s. Has been receiving LR infusion at 150 mill per hour. Cardizem has not been resumed due to low blood pressures. Continue to hold Cardizem for now. Monitor heart rates. In case heart rates rising into RVR range may need alternative therapy, possibly digoxin. Serum cortisol not suppressed, but lower than expected. 5.49. Discussed with her sister cosyntropin stim study. Status: Acute (2) Infected decubitus ulcer: Underwent sharp debridement of large deep decub of right upper buttock/lower flank. Wound VAC was applied. Tissue cultures were sent. Follow-up. Continue empiric antibiotic coverage at this time with cefepime, vancomycin. On presentation foul-smelling slough at large decub ulcer with noted undermining. With bone exposure. Repositioning. Resumed tube feeds. Appreciate stone chimney mason recommendations. Status: Acute (3) Sepsis: Resolved. Leukocytosis resolved. Tachycardia had resolved, although currently heart rates rising as she had not been able to restart on Cardizem due to hypotension. She is afebrile. Remains alert. Follow-up cultures and continue antibiotics as above. Source would not be infected decub of right gluteal/flank area. Chest x-ray, UA not suggestive of acute infection. Does not appear to have cellulitis elsewhere. Status: Acute (4) Atrial fibrillation: Rate has been controlled, however, has been off Cardizem due to low blood pressures which is so far not resumed. Continue to monitor on telemetry. In case he develops RVR again may consider additional measures, possibly digoxin. A. fib with RVR. Troponin mildly elevated 44-45. Possible Q-wave in lead 4. Sister reports history of [place], stent placement. Mild-moderate troponin elevation likely secondary to demand ischemia with RVR, sepsis. Continue cardiac monitoring. Treat decub infection. Unremarkable magnesium, TSH. Potassium is okay. Status: Acute Plan CAD status post stenting GERD HTN Bedbound, total assist: Given her overall condition, noncommunicative, bedbound, dependent for all care, discussed further goals of care with sister. She is interested in pursuing hospice care upon return to halfway. Case management will assist in getting this set up. Tube feeds resumed. Appreciate nutrition's recommendations. Attestations Medical Necessity Statement*: Continue admission for assessment of management of hypotension, optimization of control of atrial fibrillation. Coding Level of Care Code Acute Ballistician for [facility] 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 Diagnoses Infected decubitus ulcer L89.90; L08.9 Sepsis A41.9 Atrial fibrillation I48.91 Hypotension I95.9
[2022-02-02 10:55] LABS: Vancomycin Trough 12.6 ug/mL (10-15)
[2022-02-02] MEDS: cosyntropin 0.25 mg SDV IVP (14:44)
[2022-02-02 15:21] LABS: Cosyntropin Baseline 6.81 mcg/dL
[2022-02-02 16:08] LABS: Cosyntropin 30 Minute 15.58 mcg/dL
[2022-02-02 16:16] LABS: Cosyntropin 1 Hour 18.19 mcg/dL
[2022-02-02] MEDS: atorvastatin 40 mg Tablet PEG-TUBE (20:25)
[2022-02-03] VITALS (7 sets, daily range): BP systolic 83–114; BP diastolic 56–87; PULSE 86–103; RESP 14–24; TEMP 36.4–36.6; O2SAT 92–99
[2022-02-03] MEDS: cefepime 2,000 MG in sodium chloride 0.9% (plus) 50 ML 100 MG IV (04:35)
[2022-02-03] MEDS: ondansetron 4 MG Tablet PEG-TUBE (04:36)
[2022-02-03] MEDS: TRAMadol 50 mg Tablet 100 MG PO (04:36)
[2022-02-03 05:15] LABS: Basophils % 0.4 %; Eosinophils # 0.1 10^3/uL (0.0-0.8); Eosinophils % 0.9 %; Hematocrit 30.5 % (37.0-47.0); Hemoglobin 9.2 g/dL (11.5-15.3); Lymphocytes # 2.5 10^3/uL (0.8-4.8); Lymphocytes % 25.2 %; Mean Corpuscular HGB Conc 30.2 g/dL (30.0-36.0); Mean Corpuscular Hemoglobin 27.4 pg (28.0-34.0); Mean Corpuscular Volume 90.8 fl (81-99); Mean Platelet Volume 11.5 fL (7.4-10.4); Monocytes % 10.1 %; Neutrophils # 6.32 10^3/uL (1.8-7.7); Nucleated Red Blood Cells % 0 %; Platelet Count 396 10^3/cmm (130-400); Red Blood Count 3.36 10^6/uL (4.1-5.3); Red Cell Distribution Width 17.2 % (12.1-15.1)
[2022-02-03 05:40] LABS: Alanine Aminotransferase 23 U/L (0-33); Albumin Level 1.5 g/dL (3.5-5.2); Alkaline Phosphatase 133 IU/L (35-105); Anion Gap 10.4 (5-19); Aspartate Amino Transferase 41 U/L (0-32); Blood Urea Nitrogen 13 mg/dL (8-23); Calcium 8.7 mg/dL (8.5-10.5); Carbon Dioxide 24 mmol/L (22-29); Chloride 105 mmol/L (98-107); Globulin 3.4 g/dL (1.3-4.6); Glucose 122 mg/dL (65-115); Osmolality Calculated 281 mOsm/kg (285-295); Potassium 4.4 mmol/L (3.5-5.1); Sodium 135 mmol/L (136-145); Total Bilirubin 0.2 mg/dL (0.15-1.2); Total Protein 4.9 g/dL (6.6-8.7)
[2022-02-03] MEDS: vancomycin 1,000 MG in sodium chloride 0.9% 250 ML 250 MG IV (09:06)
[2022-02-03] MEDS: aspirin 81 mg EC Tablet XX (09:14)
[2022-02-03] MEDS: nystatin powder 15 gm Btl 1 APPLIC TOPICAL (10:09)
--- NOTE | 2022-02-03 10:31 | PC.SOCIAL ---
IMM update IMM updated with patient's sister. Verbalized an understanding. Initialled, dated, timed, and placed in chart.
--- NOTE | 2022-02-03 13:18 | PM.DCS ---
Discharge Providers Date of Admission: 01/31/22 21:11 Date of Discharge: February 03, 2022 Attending Provider at Admission: Mario Kerr Attending Provider at Discharge: Mario Kerr Primary Care Provider: Raul Schaeffer MD Diagnoses at Discharge Discharge Diagnosis (1) Hypotension: Status: Acute (2) Infected decubitus ulcer: Status: Acute (3) Sepsis: Status: Acute (4) Atrial fibrillation: Status: Acute Reason for Visit Reason for Visit: ulcer, bed sore Hospital Course Hospital Course 71-year-old lady half-way resident, bedbound, requiring full assistance at baseline following CVA, with dysphagia, feeding tube, was hospitalized and treated for sepsis, with infection of large deep decubitus ulcer at upper right buttock/lower flank, with bone exposure at the deep aspect of the wound. On presentation with sepsis, with leukocytosis, tachycardia, tachypnea, wound infection as the source. On presentation also with atrial fibrillation with RVR which transiently required Cardizem drip. Eventually weaned off drip, resumed on oral Cardizem, started on antibiotics for sepsis with cefepime, vancomycin, wound care, underwent surgical debridement of the wound. Sepsis resolved. Heart rates have remained in the 90s. Blood pressure has been soft, so Cardizem for now has been held. Please resume her usual Cardizem dose of 30 mg 4 times daily per feeding tube if blood pressure remains above 100 systolic, above 50 diastolic. Given her overall condition as per further discussions of goals of care with her sister she will be started under hospice care upon return to half-way. Physical Exam Const: COMMON NORMALS: alert; negative for patient oriented x3 GENERAL APPEARANCE: comfortable; not cooperative ORIENTATION/CONSCIOUSNESS: Yes awake HENMT: COMMON NORMALS: normocephalic, EAC's normal, Normal external nose present and moist oral mucous membranes HEAD & SCALP: normocephalic NOSE: Normal external nose present EXTERNAL AUDITORY CANAL: EAC's normal Neck/C-Spine: COMMON NORMALS: no meningeal signs Chest: CHEST: Yes Symmetrical chest wall rise Resp: COMMON NORMALS: clear to auscultation bilaterally AUSCULTATION: clear to auscultation bilaterally Cardio: COMMON NORMALS: No murmurs present (Cardio) RATE: tachycardic RHYTHM: abnormal rhythm irregularly irregular GI: COMMON NORMALS: Normal to inspection, nondistended, normoactive bowel sounds present, Soft to palpation and non-tender PALPATION: Yes Soft to palpation Extremity: COMMON NORMALS: no pedal edema Neuro: COMMON NORMALS: moves all extremities; negative for patient oriented x3 SENSORIUM/ORIENTATION: Yes alert MENINGEAL SIGNS: Yes no meningeal signs Psych: COMMON NORMALS: mental status grossly normal Skin: COMMON NORMALS: no wounds NARRATIVE SKIN EXAM: Dressing over large and deep ulceration of R upper buttock/lower flank RASHES: no rashes Urinary Catheter Management: Woody: Cath Placed During This Visit: yes Reason for Continuing Indwelling Catheter: Assist Healing of Perineal & Sacral Wounds- Incontinent Patients Urinary Catheter Date of Insertion: 01/31/22 Urinary Catheter Time of Insertion: 18:49 Discharge Data Studies Completed and Pending Completed Studies During Hospitalization Category Date Time Status CT abdomen pelvis w con* [id number] Stat Cat Scan 01/31/22 17:19 Completed XR chest 1V portable [id number] Stat Exams 01/31/22 17:16 Completed Pending at discharge Category Date Time Status Blood Culture Stat Lab 01/31/22 17:53 Results Complete Blood Count w/Auto AM LABS Lab 02/04/22 04:00 Ordered Comprehensive Metabolic Panel AM LABS Lab 02/04/22 04:00 Ordered SARS Covid-2 Antigen Routine Lab 02/03/22 10:50 Uncollected Tissue Culture and Gram Stain Routine Lab 02/01/22 13:06 Results Wound Culture Routine Lab 01/31/22 21:11 Results Radiology Impressions Chest X-Ray 01/31/22 17:16 IMPRESSION: No acute findings. Abdomen/Pelvis CT 01/31/22 17:19 IMPRESSION: 1. There is a new large decubitus ulcer overlying the lower right flank/upper right buttock with large defect extending to the outer cortex of the right medial ilium. No fluid collection or abscess. 2. There is no new bony destruction or osteomyelitis of the right ilium. The right ilium especially the outer cortex is unchanged compared to the prior exam. 3. No acute abnormality within the abdomen or pelvis. Incidental findings are noted as above and are unchanged. Laboratory Results WBC 10.0 10^3/uL (4.0-10.0) 02/03/22 04:15 Corrected WBC Cancelled 02/01/22 05:21 RBC 3.36 10^6/uL (4.1-5.3) L 02/03/22 04:15 Hgb 9.2 g/dL (11.5-15.3) L 02/03/22 04:15 Hct 30.5 % (37.0-47.0) L 02/03/22 04:15 MCV 90.8 fl (81-99) 02/03/22 04:15 MCH 27.4 pg (28.0-34.0) L 02/03/22 04:15 MCHC 30.2 g/dL (30.0-36.0) D 02/03/22 04:15 RDW 17.2 % (12.1-15.1) H 02/03/22 04:15 Plt Count 396 10^3/cmm (130-400) 02/03/22 04:15 MPV 11.5 fL (7.4-10.4) H 02/03/22 04:15 Gran % Cancelled 02/01/22 05:21 Neut % (Auto) 63.0 % 02/03/22 04:15 Lymph % (Auto) 25.2 % 02/03/22 04:15 Hinds % (Auto) 10.1 % 02/03/22 04:15 Eos % (Auto) 0.9 % 02/03/22 04:15 Baso % (Auto) 0.4 % 02/03/22 04:15 Neut # (Auto) 6.32 10^3/uL (1.8-7.7) 02/03/22 04:15 Lymph # (Auto) 2.5 10^3/uL (0.8-4.8) 02/03/22 04:15 Hinds # (Auto) 1.0 10^3/uL (0.2-0.9) H 02/03/22 04:15 Eos # (Auto) 0.1 10^3/uL (0.0-0.8) 02/03/22 04:15 Baso # (Auto) 0.0 10^3/uL (0.0-0.1) 02/03/22 04:15 Absolute Gran (auto) Cancelled 02/01/22 05:21 Nucleated RBC % (auto) 0 % 02/03/22 04:15 Nucleated RBCs # 0.0 /100WBC 02/03/22 04:15 Sodium 135 mmol/L (136-145) L 02/03/22 04:15 Potassium 4.4 mmol/L (3.5-5.1) 02/03/22 04:15 Chloride 105 mmol/L (98-107) 02/03/22 04:15 Carbon Dioxide 24 mmol/L (22-29) 02/03/22 04:15 Anion Gap 10.4 (5-19) 02/03/22 04:15 BUN 13 mg/dL (8-23) 02/03/22 04:15 Creatinine 0.3 mg/dL (0.5-0.9) L 02/03/22 04:15 GFR Calculation Not Reportable 02/03/22 04:15 Glucose 122 mg/dL (65-115) H 02/03/22 04:15 Calculated Osmolality 281 mOsm/kg (285-295) L 02/03/22 04:15 Lactic Acid 1.6 mmol/L (0.5-2.2) 01/31/22 17:50 Calcium 8.7 mg/dL (8.5-10.5) 02/03/22 04:15 Magnesium 1.9 mg/dL (1.7-2.3) 01/31/22 16:00 Total Bilirubin 0.2 mg/dL (0.15-1.2) 02/03/22 04:15 AST 41 U/L (0-32) H 02/03/22 04:15 ALT 23 U/L (0-33) 02/03/22 04:15 Alkaline Phosphatase 133 IU/L (35-105) H 02/03/22 04:15 Creatine Kinase 83 U/L (26-192) 01/31/22 16:00 Troponin T Baseline 44 ng/L (0-10) H 01/31/22 16:00 Troponin T 120 Minute 45.37 ng/L (0-10) H 01/31/22 17:50 Delta Troponin T 1.37 ABS# (0-10) 01/31/22 17:50 Troponin T Hi Sens 6Hr 58.08 ng/L (0-10) H 01/30/22 23:47 Troponin T Hi Sens 6Hr Delta 14.08 ng/L (0-12) H* 01/30/22 23:47 Total Protein 4.9 g/dL (6.6-8.7) L 02/03/22 04:15 Albumin 1.5 g/dL (3.5-5.2) L 02/03/22 04:15 Globulin 3.4 g/dL (1.3-4.6) 02/03/22 04:15 TSH 3.98 uIU/mL (0.27-4.20) 01/31/22 16:00 Random Cortisol 5.49 ug/dL (2.47-19.5) 02/02/22 05:45 Cortisol Response 02/02/22 14:42 Urine Color Yellow (Yellow) 01/31/22 18:45 Urine Appearance Clear (CLEAR) 01/31/22 18:45 Urine pH 6.5 (5-7) 01/31/22 18:45 Ur Specific Raymond 1.010 (1.005-1.030) 01/31/22 18:45 Urine Protein Neg (Negative) 01/31/22 18:45 Urine Glucose (UA) Norm (Normal) 01/31/22 18:45 Urine Ketones Negative (Negative) 01/31/22 18:45 Urine Blood Neg (Negative) 01/31/22 18:45 Urine Nitrate Negative (Negative) 01/31/22 18:45 Urine Bilirubin Neg (Negative) 01/31/22 18:45 Urine Urobilinogen 4 mg/dL (Negative) H 01/31/22 18:45 Ur Leukocyte Esterase Negative (Negative) 01/31/22 18:45 Vancomycin Trough 12.6 ug/mL (10-15) 02/02/22 10:05 Vitals Last Vital Signs Temp 97.6 F 02/03/22 11:57 Pulse 94 02/03/22 11:57 Resp 17 02/03/22 11:57 BP 104/59 02/03/22 11:57 Pulse Ox 96 02/03/22 11:57 Discharge Plan Discharge Patient Disposition: Hospice - Medical Facility Condition: Stable Prescriptions: New cefdinir 300 mg capsule 300 mg feeding tube BID 7 Days Qty: 14 0RF Continued tramadol 50 mg Tablet 100 mg PO BID PRN (Reason: Pain) 0RF magnesium hydroxide [Milk of Magnesia] 400 mg/5 mL Suspension 30 ml PO DAILY PRN (Reason: Constipation) 0RF docusate sodium [Stool Softener] 100 mg Capsule 300 mg PO DAILY PRN (Reason: Constipation) 0RF atorvastatin 40 mg tablet 40 mg feeding tube BEDTIME 0RF Aspir-81 81 mg Tablet,Delayed Release (Dr/Ec) 81 mg feeding tube DAILY 0RF Xanax 0.5 mg Tablet 0.5 mg PO BID 0RF Nyamyc 100,000 unit/gram powder 100,000 unit TOPICAL BID 0RF ondansetron 4 mg tablet,disintegrating 4 mg feeding tube Q8H 0RF Held diltiazem HCl 30 mg Tablet 30 mg feeding tube QID 0RF Hold Instructions: Resume on 02/09/22. Discontinued levofloxacin 500 mg tablet 500 mg feeding tube DAILY 0RF Dakin's Solution 0.125 % Solution 1 applic TOPICAL BID 0RF Discharge Orders: Discharge Order (Routine); Ordered 02/03/22 Ordered By: Mario Kerr Referrals: [facility] [Outside] Raul Schaeffer MD [Primary Care Provider] - [facility], [Occupational Therapist] - Discharge Diet: Start new tube feeds as directed Discharge Activity: Increase activity as tolerated Patient Instructions: Opioid Safety Activity Restrictions/Additional Instructions: Continue wound care with wet-to-dry dressing daily to deep decubitus ulceration on right upper buttock/lower flank. Cover with foam. Reposition frequently. Tube feeds: Jevity 1.2. Goal rate 40 mL/h. Water flushes 100 mouth every 6 hours. Diltiazem was held for now due to soft blood pressures. If blood pressures persistently stay at or above 100 systolic, above 50 diastolic, please resume diltiazem 30 mg 4 times daily by feeding tube. Hospice care. Discharge Attestations Time Spent in Discharge Care*: greater than 30 min Quality Metrics Clinical Quality Measures [ No reported AMI, CVA or VTE this stay] Coding Level of Care Code Acute Chg FW DC note Diagnoses Hypotension I95.9 Infected decubitus ulcer L89.90; L08.9 Sepsis A41.9 Atrial fibrillation I48.91
[2022-02-03 15:47] LABS: SARS Covid-2 Antigen Negative (Negative)
--- NOTE | 2022-02-03 16:13 | PC.NURSE ---
Report called to [facility] at this time
--- NOTE | 2022-02-03 16:42 | PC.NURSE ---
no belongings noted with patient
--- NOTE | 2022-02-03 16:57 | PC.NURSE ---
Discharge Note Patient discharged to [facility] via ambulance transport accompanied by ambulance personal. 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 Mobile pharmacy medications and/or prescriptions provided. Belongings/home medications returned.
== END 2022-02-03 16:57 | disposition hospice, inpatient (51) | DRG 853 ==
LOC: ER 18:50 → ICU 19:32 → CSU 02-01 21:58
PROVIDERS: Thoracic Surgery (Cardiothoracic Vascular Surgery); Admitting Provider Internal Medicine; Emergency Provider Family Medicine; PCP Family Medicine; Visit Provider Internal Medicine
PROC: 0JB90ZZ Excision of Buttock Subcutaneous Tissue and Fascia, Open Approach (ICD-10-PCS; principal; 2022-02-01 20:15)
DX: A41.9 Sepsis, unspecified organism (principal); L89.154 Pressure ulcer of sacral region, stage 4; I69.991 Dysphagia following unspecified cerebrovascular disease; R13.10 Dysphagia, unspecified; I48.91 Unspecified atrial fibrillation; I10 Essential (primary) hypertension; Z87.891 Personal history of nicotine dependence; I25.10 Atherosclerotic heart disease of native coronary artery without angina pectoris; Z95.5 Presence of coronary angioplasty implant and graft; Z74.01 Bed confinement status; Z93.1 Gastrostomy status; Z79.82 Long term (current) use of aspirin; I95.9 Hypotension, unspecified
CPT/HCPCS: 36415; 51702; 71045; 74177; 80048; 80053; 80202; 81003; 82533; 82550; 83605; 83735; 84443; 84484; 85025; 87040; 87070; 87077; 87176; 87186; 87205; 87426; 93005; 96365; 96367; 96375; 99285; J0692; J0696; J0834; J2270; J3370; J3490; J7050; Q0162; Q9967

== ENCOUNTER 2022-04-12 12:38 | Emergency (ER) | payer MEDICARE, MEDICAID, SELFPAY ==
[2022-04-12 12:48] VITALS: BP 134/85; PULSE 109; RESP 17; TEMP 36.6; O2SAT 95; BMI 36.7
--- NOTE | 2022-04-12 12:49 | ED_ITS ---
HPI - General Adult General: Chief complaint: General Medical Stated complaint: CLOGGED PEG TUBE Time Seen by Provider: 04/12/22 12:39 History of Present Illness: [71]yo patient w/ hx of G tube dependence, nonverbal at baseline, advance dmetnia presenting to the ED with concerns for G tube obstruction since AM. Nursing staff has not been able to flush any content into patient's G-tube. Nursing staff used cola and enzymes without any improvements. Patient has had a G-tube placed chronically for more than 6 months. Hx of dislodgement from 2 months ago. No complaints of G tube leakage, insertion site erythema/warmth/pain, or G tube displacement today per EMS. Onset: 4 hrs ago Duration: ongoing Location: home Severity: mild/moderate Review of Systems General: Reports: ROS unobtainable due to medical condition (nonverbal/baseline dementia) GI: Reports: other (+PEG tube issue per EMS) PFSH ED PFSH: Medical History Abnormal stress test Atrial fibrillation CAD (coronary artery disease) Cerebrovascular accident Chronic migraine GERD (gastroesophageal reflux disease) HTN (hypertension) Postmenopausal osteoporosis Syncope and collapse Surgical History H/O: hysterectomy History of bariatric surgery Hx of tonsillectomy Post-splenectomy S/P cholecystectomy Status post coronary artery stent placement Stented coronary artery Family History Other Diabetes Hypertension Social History Smoking and tobacco status: former smoker Alcohol intake: never Physical Exam Const: COMMON NORMALS: alert HENMT: COMMON NORMALS: atraumatic HEAD & SCALP: atraumatic MOUTH: moist mucous membranes not abnormal Eye: COMMON NORMALS: conjunctivae normal CONJUNCTIVA: Yes conjunctivae normal Neck/C-Spine: COMMON NORMALS: supple Resp: COMMON NORMALS: normal respiratory effort and clear to auscultation bilaterally AUSCULTATION: clear to auscultation bilaterally Cardio: COMMON NORMALS: regular rate RATE: regular rate GI: COMMON NORMALS: Soft to palpation and non-tender PALPATION: Yes Soft to palpation OTHER: 16Fr PEG tube site dry/clean/intac : OTHER: +suprapublic cathether site dry/clean/intact Extremity: COMMON NORMALS: full ROM Neuro: SENSORIUM/ORIENTATION: Yes alert OTHER: AAO x1, not following commands, moving all extremities, and face Psych: OTHER: +unable to assess given baseline mental status Course Vital Signs: Vital signs: Vital Signs Temperature 97.9 F 04/12/22 12:48 Pulse Rate 98 04/12/22 14:52 Respiratory Rate 17 04/12/22 12:48 Blood Pressure 131/81 04/12/22 14:52 Pulse Oximetry 98 04/12/22 14:52 MDM - General Adult Medical Decision Making [71]yo patient w/ G tube dependence presenting to the ED with concerns for G- Tube obstruction without evidence of infection, leaking, or displacement. Intervention: Initial approach: Gentle [id number] flushing with saline, coke. [1:30pm] On reassessment, the G-tube continues to be not flushing. We attempted Cathflo however was unsuccessful. The maritime pilot balloon was successfully deflated and the the 18 [place] G-tube was removed. A new tube was inserted into the site. CT scan showed proper placement of the new G-tube. Disposition: Discharge. Feeding tube now patent. Patient without any other emergent medical complaints, well appearing. Recommendations prompt PCP and GI follow up within 48 hours. SRP discussed. Lab Data Radiology Impressions Abdomen/Pelvis CT 04/12/22 15:23 IMPRESSION: 1. Appropriately positioned percutaneous gastric tube. 2. Incidental findings above. Imaging Data Other Imaging: Radiologist's impression: [address] [address] [address] Scan Report Signed Patient: Jennifer Sahu Unit #: [id number] : [id number] Age/Sex: 71 / F ADM Date: 04/12/22 Loc: ER Room/Bed: Attending Dr: Ordering Provider/Ordering MD: Yissel Carey MD Date of Service: 04/12/22 Procedure(s): CT abdomen pelvis wo con [id number] Accession Number(s): [id number] Report Number: [id number] PROCEDURE INFORMATION: Exam: CT Abdomen And Pelvis Without Contrast Exam date and time: 04/12/2022 4:47 PM Age: 71 years old Clinical indication: Abdominal pain; Prior surgery; Surgery date: 6+ months; Surgery type: Gb, hyst, gastro, ; additional info: Eval for g tube obstruction, evaluate for maritime pilot balloon TECHNIQUE: Imaging protocol: Computed tomography of the abdomen and pelvis without contrast. Radiation optimization: All CT scans at this facility use at least one of these dose optimization techniques: automated exposure control; mA and/or kV adjustment per patient size (includes targeted exams where dose is matched to clinical indication); or iterative reconstruction. COMPARISON: CT abdomen pelvis w con* [id number] 01/31/2022 6:26 PM RADIATION DOSE METRICS: Total DLP (mGy-cm): 1574.37 FINDINGS: Tubes, catheters and devices: There is a percutaneous gastric tube. The bulb is positioned in the gastric lumen. There is no sign of inflammation or gas along the tract through the abdominal wall. Lungs: Lung bases are clear. Liver: The liver is normal. Gallbladder and bile ducts: The gallbladder is absent. There is ectasia of the common bile duct and central intrahepatic ducts. Pancreas: The pancreas is unremarkable. Spleen: The spleen is absent. Adrenal glands: The adrenal glands are unremarkable. 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 There is no hydronephrosis or ureteral dilation. Stomach and bowel: The stomach is decompressed, preventing meaningful evaluation of wall thickness. There is a non-inflamed diverticulum in the proximal duodenum. The small bowel is nondilated. There is moderate sigmoid colonic diverticulosis without evidence of diverticulitis. The rectum is dilated to 9 cm and is filled with stool. There is no colonic wall thickening or pneumatosis. Appendix: No evidence of appendicitis. Intraperitoneal space: There is no free air or significant intraperitoneal free fluid. Vasculature: There is moderate aortic atherosclerotic disease. Lymph nodes: There is no lymphadenopathy in the retroperitoneum, mesentery, pelvis or inguinal regions. Urinary bladder: The Woody catheter is appropriately positioned with the bulb and tip within the bladder lumen. The urinary bladder is decompressed, preventing meaningful evaluation of wall thickness. Reproductive: The uterus is unremarkable. There is no adnexal mass or large cyst. Bones/joints: There is severe multilevel degenerative disease in the lumbar spine. There is diffuse facet and vertebral ankylosis in the lumbar spine. There is severe degenerative disease at the right hip. There is moderate degenerative disease at the left hip. The bony pelvis is intact. There is no sign of osteomyelitis. Soft tissues: There is a soft tissue ulcer overlying the posterior right ilium. No fluid collection. There are dystrophic calcifications in the subcutaneous overlying the lower flank bilaterally. The abdominal wall is intact. CT/CT abdomen pelvis wo con [id number] IMPRESSION: 1. Appropriately positioned percutaneous gastric tube. 2. Incidental findings above. ? Dictated By: Cody Castle MD Signed By: Cody Castle MD Signed Date/Time: 04/12/221744 DD/ 1647 Discharge Plan Discharge Patient Disposition: Home Clinical Impression: Encounter for PEG (percutaneous endoscopic gastrostomy) Condition: Stable Prescriptions: No Action tramadol 50 mg Tablet 100 mg PO BID PRN (Reason: Pain) 0RF magnesium hydroxide [Milk of Magnesia] 400 mg/5 mL Suspension 30 ml PO DAILY PRN (Reason: Constipation) 0RF docusate sodium [Stool Softener] 100 mg Capsule 300 mg PO DAILY PRN (Reason: Constipation) 0RF nystatin [Nyamyc] 100,000 unit/gram powder 100,000 unit TOPICAL BID 0RF diltiazem HCl 30 mg Tablet 30 mg feeding tube QID 0RF Hold Instructions: Resume on 02/09/22. ondansetron 4 mg tablet,disintegrating 4 mg feeding tube Q8H 0RF acetaminophen 650 mg Suppository 650 mg RI Q4H PRN (Reason: Pain) 0RF Roxanol 20 mg/5 mL (4 mg/mL) Solution 10 mg PO Q1H PRN (Reason: Dyspepsia) 0RF Discharge Orders: Discharge ED (Routine); Ordered 04/12/22 Ordered By: Yissel Carey Referrals: Raul Schaeffer MD [Primary Care Provider] - Discharge Diet: Advance as tolerated Discharge Activity: Increase activity as tolerated Patient Instructions: How to Use and Care for Your PEG Tube (ED) Activity Restrictions/Additional Instructions: Come back if you have any new or concerning issues. Coding Level of Care Code ED [employer] for Rogelio 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
[2022-04-12 12:52] VITALS: BP 117/93; PULSE 101; O2SAT 97
[2022-04-12] MEDS: alteplase 1 mg/mL SDV 2 mL 2 MG INTRACATH (14:02)
[2022-04-12 14:52] VITALS: BP 131/81; PULSE 98; O2SAT 98
--- NOTE | 2022-04-12 15:23 | CTR_ITS ---
PROCEDURE INFORMATION: Exam: CT Abdomen And Pelvis Without Contrast Exam date and time: 04/12/2022 4:47 PM Age: 71 years old Clinical indication: Abdominal pain; Prior surgery; Surgery date: 6+ months; Surgery type: Gb, hyst, gastro, ; additional info: Eval for g tube obstruction, evaluate for airline pilot/first officer balloon TECHNIQUE: Imaging protocol: Computed tomography of the abdomen and pelvis without contrast. Radiation optimization: All CT scans at this facility use at least one of these dose optimization techniques: automated exposure control; mA and/or kV adjustment per patient size (includes targeted exams where dose is matched to clinical indication); or iterative reconstruction. COMPARISON: CT abdomen pelvis w con* [id number] 01/31/2022 6:26 PM RADIATION DOSE METRICS: Total DLP (mGy-cm): 1574.37 FINDINGS: Tubes, catheters and devices: There is a percutaneous gastric tube. The bulb is positioned in the gastric lumen. There is no sign of inflammation or gas along the tract through the abdominal wall. Lungs: Lung bases are clear. Liver: The liver is normal. Gallbladder and bile ducts: The gallbladder is absent. There is ectasia of the common bile duct and central intrahepatic ducts. Pancreas: The pancreas is unremarkable. Spleen: The spleen is absent. Adrenal glands: The adrenal glands are unremarkable. 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 There is no hydronephrosis or ureteral dilation. Stomach and bowel: The stomach is decompressed, preventing meaningful evaluation of wall thickness. There is a non-inflamed diverticulum in the proximal duodenum. The small bowel is nondilated. There is moderate sigmoid colonic diverticulosis without evidence of diverticulitis. The rectum is dilated to 9 cm and is filled with stool. There is no colonic wall thickening or pneumatosis. Appendix: No evidence of appendicitis. Intraperitoneal space: There is no free air or significant intraperitoneal free fluid. Vasculature: There is moderate aortic atherosclerotic disease. Lymph nodes: There is no lymphadenopathy in the retroperitoneum, mesentery, pelvis or inguinal regions. Urinary bladder: The Woody catheter is appropriately positioned with the bulb and tip within the bladder lumen. The urinary bladder is decompressed, preventing meaningful evaluation of wall thickness. Reproductive: The uterus is unremarkable. There is no adnexal mass or large cyst. Bones/joints: There is severe multilevel degenerative disease in the lumbar spine. There is diffuse facet and vertebral ankylosis in the lumbar spine. There is severe degenerative disease at the right hip. There is moderate degenerative disease at the left hip. The bony pelvis is intact. There is no sign of osteomyelitis. Soft tissues: There is a soft tissue ulcer overlying the posterior right ilium. No fluid collection. There are dystrophic calcifications in the subcutaneous overlying the lower flank bilaterally. The abdominal wall is intact. CT/CT abdomen pelvis wo con [id number] IMPRESSION: 1. Appropriately positioned percutaneous gastric tube. 2. Incidental findings above.
--- NOTE | 2022-04-12 17:33 | PC.NURSE ---
Pt update given to [facility] at this time.
[2022-04-12 18:00] VITALS: BP 135/78
[2022-04-12 20:05] VITALS: BP 135/78
== END 2022-04-12 19:25 | disposition home or self-care (01) ==
PROVIDERS: Emergency Provider Emergency Medicine; PCP Family Medicine
DX: K94.29 Other complications of gastrostomy (principal); I25.10 Atherosclerotic heart disease of native coronary artery without angina pectoris; Z86.73 Personal history of transient ischemic attack (TIA), and cerebral infarction without residual deficits; I10 Essential (primary) hypertension; Z87.891 Personal history of nicotine dependence
CPT/HCPCS: 74176; 99284; B4087; J2997